=== PATIENT | female | born 1950 | race Caucasian/White ===

== ENCOUNTER → 2016-03-01 | Outpatient (POV) | payer OTHER ==
[2015-10-30 18:36] VITALS: BMI 27.0
== END ==
LOC: OUTPT 00:01
PROVIDERS: ATTEND Otolaryngology
DX: H90.5 Unspecified sensorineural hearing loss (principal)
CPT/HCPCS: 92557; 92567

== ENCOUNTER 2017-03-04 17:43 | Inpatient (IN) ==
[2017-03-04 17:51] VITALS: BMI 25.8
--- NOTE | 2017-03-04 18:07 | ED.PDOC ---
General ED Provider: Dr. ALIS RAYA Chief Complaint: Cough Stated Complaint: two week history of cough that is non productive. Time Seen by Physician: 18:02 Mode of Arrival: Walk-In Information Source: Patient Exam Limitations: No limitations Primary Care Provider: ROSE MARIE BRUSH Nursing and Triage Documentation Reviewed and Agree: Yes Reviewed sepsis parameters & appropriate labs ordered?: Yes System Inflammatory Response Syndrome: Not Applicable Sepsis Protocol: For patient's 13 years and over: Temp is 96.8 and below OR 101 and greater Pulse >90 BPM Resp >20/minute Acutely Altered Mental Status Are patient's symptoms suggestive of a new infection, such as: -Pneumonia -Skin, Soft Tissue -Endocarditis -UTI -Bone, Joint Infection -Implantable Device -Acute Abdominal Infection -Wound Infection -Meningitis -Blood Stream Catheter Infection -Unknown System Inflammatory Response Syndrome: Not Applicable Respiratory Complaint Exam - Respiratory Complaint/Exam Onset/Duration: 2 weeks Symptoms Are: Still present Timing: Constant, Intermittent Initial Severity: Moderate Current Severity: Severe Location: Chest Character: Reports: Dry cough Aggravating: Reports: URI, Weather Associated Signs and Symptoms: Reports: Chest pain (only with coughing on the right chest ). Denies: Rapid breathing, Dyspnea, Fever, Chills, Pleuritic chest pain, Wheezing, Hemoptysis, Dizziness, Calf pain, Calf swelling, Edema, URI, Nasal congestion, Hoarseness, Sinus discomfort, Vomiting, Sore throat, Weight loss, Decreased oral intake, Increased thirst, Increased appetite, Increased urination History of Healthcare-Acquired Pneumonia: No Related Surgical History: Reports: None Pulmonary Embolism Risk Factors: None Cardiac Risk Factors: Reports: Smoking Pseudomonas Risk Factors: Reports: Chronic Lung Disease Tuberculosis Risk Factors: Reports: None Status Asthmaticus Risk Factors: Reports: None Home Oxygen Use: Yes Recent Stress Test: No Recent Echo/LV Function: No Current Antibiotic Use: No Current Asthma Medication Use: No Respiratory Distress: None Inadequate Respiratory Effort: No Dysphagia Present: No Stridor Present: No JVD Present: No Retractions: Not Present Diminished Breath Sounds: Yes Sinus Tenderness: None Grunting Respirations: No Kussmaul Respirations: No Differential Diagnoses: COPD Exacerbation, Pneumonia, Bronchitis, Influenza Non-Traumatic Chest Pain Syncope: EKG Performed Review of Systems - Review Of Systems Constitutional: Reports: No symptoms Eyes: Reports: No symptoms Ears, Nose, Mouth, Throat: Reports: No symptoms Respiratory: Reports: Cough, Short of air Cardiac: Reports: Chest pain GI: Reports: No symptoms : Reports: No symptoms Musculoskeletal: Reports: No symptoms Skin: Reports: No symptoms Neurological: Reports: No symptoms Endocrine: Reports: No symptoms Hematologic/Lymphatic: Reports: No symptoms All Other Systems: Reviewed and Negative Past Medical History - Past Medical History Previously Healthy: No Endocrine: Reports: None Cardiovascular: Reports: Hypertension Respiratory: Reports: None Hematological: Reports: None Gastrointestinal: Reports: None Genitourinary: Reports: None Neuro/Psych: Reports: None Musculoskeletal: Reports: None Cancer: Reports: None Last Menstrual Period: menopause - Surgical History General Surgical History: Reports: None - Family History Family History: Reports: None - Social History Smoking Status: Current every day smoker, Light tobacco smoker Hx Substance Use: No Alcohol Screening: Occasionally Physical Exam - Physical Exam Appearance: Ill-appearing Ill-appearing: Mild Neck: Supple Respiratory: Airway patent, Breath sounds diminished Cardiovascular: RRR, Pulses normal, No rub, No murmur GI/: Soft, Nontender, No masses, Bowel sounds normal, No Organomegaly Musculoskeletal: Normal strength, ROM intact, No edema, No calf tenderness Skin: Warm, Dry, Normal color Neurological: Sensation intact, Motor intact, Reflexes intact, Cranial nerves intact, Alert, Oriented Psychiatric: Anxious Interpretation - EKG Interpretation Time of EKG #1: 18:22 Rate: Normal Rhythm: Sinus Ectopy: None [place]: Right ST Segment: Normal Re-Evaluation - Re-Evaluation Time of Re-Evaluation: 20:04 Status: Improved Vital Signs Stable: Yes Physician Notification - Case Discussed Physician Notified: Dr Brush Time of Notification: 20:04 (Admit to Hosptial. ) Critical Care Note - Critical Care Note Total Time (mins): 0 Course - Course Hematology/Chemistry: 03/04/17 18:23 03/04/17 18:23 Orders, Labs, Meds: Lab Review 03/04/17 03/04/17 03/04/17 18:08 18:14 18:23 WBC 10.49 H RBC 4.84 Hgb 15.0 Hct 44.1 MCV 91.1 MCH 31.0 MCHC 34.0 RDW Coeff of Darin 12.9 Plt Count 219 Immature Gran % (Auto) 0.4 Neut % (Auto) 57.9 Lymph % (Auto) 27.3 [place] % (Auto) 11.0 H Eos % (Auto) 2.6 Baso % (Auto) 0.8 Immature Gran # (Auto) 0.0 Neut # 6.1 Lymph # 2.9 Floyd # 1.2 Eos # 0.3 Baso # 0.1 Puncture Site Rrad O2 Saturation 90.0 L ABG pH 7.389 ABG pCO2 47.7 H ABG pO2 60.0 L ABG HCO3 28.8 H ABG Total CO2 30 H ABG Base Excess 4 H Benjamín Test + FiO2 % 21.0 Sodium Potassium Chloride Carbon Dioxide Anion Gap BUN Creatinine Estimated GFR (MDRD) BUN/Creatinine Ratio Glucose Calcium Total Bilirubin AST ALT Alkaline Phosphatase Total Creatine Kinase Troponin I Total Protein Albumin Globulin Albumin/Globulin Ratio Influenza A (Rapid) Negative by naat Influenza B (Rapid) Negative by naat 03/04/17 18:23 WBC RBC Hgb Hct MCV MCH MCHC RDW Coeff of Darin Plt Count Immature Gran % (Auto) Neut % (Auto) Lymph % (Auto) [place] % (Auto) Eos % (Auto) Baso % (Auto) Immature Gran # (Auto) Neut # Lymph # Floyd # Eos # Baso # Puncture Site O2 Saturation ABG pH ABG pCO2 ABG pO2 ABG HCO3 ABG Total CO2 ABG Base Excess Benjamín Test FiO2 % Sodium 141 Potassium 3.7 Chloride 105 Carbon Dioxide 28 Anion Gap 11.7 BUN 14 Creatinine 0.77 Estimated GFR (MDRD) 75.00 BUN/Creatinine Ratio 18.18 Glucose 90 Calcium 8.9 Total Bilirubin 0.7 AST 13 L ALT 13 Alkaline Phosphatase 77 Total Creatine Kinase 51 Troponin I 0.0560 Total Protein 6.7 Albumin 3.6 Globulin 3.1 Albumin/Globulin Ratio 1.16 Influenza A (Rapid) Influenza B (Rapid) Orders Category Date Time Status ABG DRAW REQUEST Stat CARDIO 03/04/17 18:08 Completed EKG-(ED ONLY) Stat CARDIO 03/04/17 18:08 Completed ABG Stat LAB 03/04/17 18:08 Completed CBC W/ AUTO DIFF Stat LAB 03/04/17 18:23 Completed COMPREHENSIVE METABOLIC PANEL Stat LAB 03/04/17 18:23 Completed CREATINE KINASE Stat LAB 03/04/17 18:23 Completed FLU A/B MOLECULAR Stat LAB 03/04/17 18:14 Completed TROPONIN I Stat LAB 03/04/17 18:23 Completed CHEST, 2 VIEWS PA & LAT Stat RADS 03/04/17 18:02 Completed Medications Generic Name Dose Route Start Last Admin Trade Name Freq PRN Reason Stop Dose Admin Acetaminophen 650 mg 03/04/17 21:43 Tylenol PO Q4H PRN Headache Aspirin 81 mg 03/05/17 08:00 Aspirin Ec PO DAILYWM ALDO Atropine Sulfate 0.5 mg 03/04/17 21:43 Atropine Sulfate Pfs IVP ONCE PRN Symptomatic Bradycardia Hydroxyzine HCl 25 mg 03/04/17 21:43 Vistaril Inj IM Q4H PRN Nausea/Vomiting/Restlessness Morphine Sulfate 4 mg 03/04/17 21:43 Morphine 4 Mg/Ml Vial IVP Q6H PRN Analgesia Nitroglycerin 0.4 mg 03/04/17 21:43 Nitrostat SL Q5MIN X 3 DOSES PRN Chest Pain Sodium Chloride 1 syr 03/05/17 05:00 Saline Flush IVF Q8HR ALDO Vital Signs: Temp Pulse Resp BP Pulse Ox 03/04/17 20:07 161/92 H 03/04/17 19:11 98 03/04/17 17:43 99.2 F 88 20 140/83 90 L Departure - Departure Time of Disposition: 20:04 Disposition: ADMITTED INPATIENT Discharge Problem: Cough, COPD with acute exacerbation Condition: Stable Pt referred to PMD for follow-up: No (admitted) IPMP verified?: No Allergies/Adverse Reactions: Allergies No Known Allergies Allergy (Verified 03/04/17 17:53) Home Medications: Ambulatory Orders Aspirin [[place] Aspirin] 81 mg PO DAILY 12/30/13 Atorvastatin Calcium 20 mg PO DAILY 12/30/13 Carvedilol 3.125 mg PO BID 12/30/13 Amlodipine Besylate 5 mg PO DAILY 03/04/17
--- NOTE | 2017-03-04 19:48 | DI ---
EXAM: Two-view chest HISTORY: Cough COMPARISON: Two-view chest 04/15/2015 FINDINGS: The heart is normal in size. Atherosclerotic changes are seen involving the aortic arch.. Lungs are mildly hyperinflated. IMPRESSION: Mild bilateral hyperinflation without evidence of active pulmonary disease
[2017-03-04] MEDS ORDERED: NITROSTAT SL PRN (21:43)
[2017-03-04] MEDS ORDERED: TYLENOL PO PRN (21:43)
[2017-03-04] MEDS ORDERED: ATROPINE SULFATE PFS IVP PRN (21:43)
[2017-03-04] MEDS ORDERED: MORPHINE 4 MG/ML VIAL IVP PRN (21:43)
[2017-03-04] MEDS ORDERED: VISTARIL INJ IM PRN (21:43)
[2017-03-04] MEDS ORDERED: XOPENEX 1.25 MG NEB STA (21:46)
[2017-03-04] MEDS ORDERED: ROCEPHIN ONE (21:59)
[2017-03-04] MEDS ORDERED: ROCEPHIN 1 GM in SODIUM CHLORIDE 50 ML IV SCH (22:00)
[2017-03-04] MEDS ORDERED: COREG PO SCH (22:00)
[2017-03-04] MEDS: SOLU-CORTEF 250 MG IVP SCH (22:09)
[2017-03-04] MEDS: XOPENEX 1.25 MG NEB SCH (23:37)
[2017-03-05] MEDS ORDERED: XOPENEX 0.63 MG NEB ONE (04:39)
[2017-03-05] MEDS: XOPENEX 1.25 MG NEB SCH ×4 (04:50→23:20)
[2017-03-05] MEDS: SOLU-CORTEF 250 MG IVP SCH ×3 (05:07→20:52)
[2017-03-05] MEDS ORDERED: ASPIRIN EC PO SCH (08:00)
[2017-03-05] MEDS: ASPIRIN CHEWABLE PO SCH (09:00)
[2017-03-05] MEDS: LIPITOR PO SCH (09:00)
[2017-03-05] MEDS: NORVASC PO SCH (09:00)
[2017-03-05] MEDS: COREG PO SCH ×3 (09:01→16:57)
[2017-03-05] MEDS ORDERED: ROCEPHIN 1 GM in SODIUM CHLORIDE 50 ML IV SCH (21:00)
[2017-03-06] MEDS: SOLU-CORTEF 250 MG IVP SCH (04:30)
[2017-03-06] MEDS: XOPENEX 1.25 MG NEB SCH (05:20)
[2017-03-06] MEDS: COREG PO SCH (08:37)
[2017-03-06] MEDS: LIPITOR PO SCH (08:37)
[2017-03-06] MEDS: ASPIRIN CHEWABLE PO SCH (08:37)
[2017-03-06] MEDS: NORVASC PO SCH (08:38)
--- NOTE | 2017-03-06 10:11 | CM.DICTOOL ---
ADMISSION: 03/04/17 20:15 DISCHARGE: 2017 DATE OF SERVICE: 03/06/17 FINAL DIAGNOSIS COPD with acute exacerbation Hypertension Dyslipidemia CAD with stent application [place] Smoker Colonoscopy (Vic) Hernia Repair x 3 Echocardiogram 2015: normal with LVEF 73% PFT, 2015: moderate to severe COPD LAST VITALS Temp Pulse Resp BP Pulse Ox 97.9 F 71 18 124/64 96 03/06/17 05:19 03/06/17 05:19 03/06/17 05:19 03/06/17 05:19 03/06/17 05:19 ACTIVE HOME MEDICATIONS Amlodipine Besylate (Norvasc) 5 mg PO DAILY [facility] Last Admin: 03/06/17 08:38 Dose: 5 mg Aspirin (Aspirin Chewable) 81 mg PO DAILYWM [facility] Last Admin: 03/06/17 08:37 Dose: 81 mg Atorvastatin Calcium (Lipitor) 20 mg PO DAILY [facility] Last Admin: 03/06/17 08:37 Dose: 20 mg Carvedilol (Coreg) 3.125 mg PO BIDWM [facility] Last Admin: 03/06/17 08:37 Dose: 3.125 mg ALLERGIES No Known Allergies Allergy (Verified 03/04/17 17:53) NEW PRESCRIPTIONS: Keflex 500 mg TID for 7 days Prednisone 20 mg BID for 2 days, then 10 mg BID for 5 days SMOKING: Advised to stop smoking DISEASE SPECIFIC EDUCATION: Smoking COPD Medications, including short term use of oral steroids Risk of GI irritation, bone demineralization with steroid use LAB REVIEW: 03/06/17 05:10 03/06/17 05:10 03/06/17 05:10: Sodium 143, Potassium 3.7, Chloride 108 H, Carbon Dioxide 28, Anion Gap 10.7, BUN 15, Creatinine 0.66, Estimated GFR (MDRD) 89.00, BUN/ Creatinine Ratio 22.72, Glucose 133 H, Calcium 8.8, Total Bilirubin 0.4, AST 9 L , ALT 11 L, Alkaline Phosphatase 62, Total Protein 5.8, Albumin 3.2 L, Globulin 2.6, Albumin/Globulin Ratio 1.23 03/06/17 05:10: WBC 12.90 H D, RBC 4.18 L, Hgb 12.8, Hct 37.7, MCV 90.2, MCH 30.6, MCHC 34.0, RDW Coeff of Darin 13.0, Plt Count 186, Immature Gran % (Auto) 0.5, Neut % (Auto) 81.5, Lymph % (Auto) 10.9, [place] % (Auto) 6.9, Eos % (Auto) 0.0, Baso % (Auto) 0.2, Immature Gran # (Auto) 0.1, Neut # 10.5 H, Lymph # 1.4, [place] # 0.9, Eos # 0.0, Baso # 0.0 PLAN: Discharge home Diet: As tolerated, heart healthy Activity: Gradually resume as tolerated Continue medications as listed on nursing discharge information sheet An appointment is scheduled with Dr. Nguyen/Lachelle Schulte APRN on at 9 am Mrs. Kirby is alert and oriented x 3. She offers no complaints and reports she feels 100% better today. She is ambulatory in the hallway without assistive devices or use of oxygen. Oxygen saturation on room air is 93% and with exertion the saturation is 90%. She is independent with Activities of Daily Living. No abdominal pain or nausea reported. Meal intakes of 50-100%. Skin is intact and free of decubitus ulcers, rashes or irritation. Derek Nguyen MD Lachelle Schulte APRN
[2017-03-06 10:45] VITALS: BP 121/64; TEMP 97.3
--- NOTE | 2017-03-06 10:54 | PCM.PROG ---
Attending Provider: ATTENDING PROVIDER: Dr. ROSE MARIE BRUSH This patient is seen with Lachelle Schulte, Nurse Practitioner. DATE OF SERVICE: 03/06/17 SUBJECTIVE: This 66 year old WHITE/ F was hospitalized 03/04/17. The patient is lying in bed, alert. The patient has been up and about walking around. Shortness of breath and cough improved. The patient is wanting to go home today. REVIEW OF SYSTEMS: CONSTITUTIONAL: No night sweats. No fatigue, malaise, lethargy. No fever or chills. HEENT: Eyes: No visual changes. No eye pain. No eye discharge. ENT: No runny nose. No epistaxis. No sinus pain. No odynophagia. No congestion. RESPIRATORY: Less cough, no congestion. No hemoptysis. Less shortness of breath. CARDIOVASCULAR: No angina symptoms. No CHF symptoms. No atypical chest pain for CAD. No palpitations. No orthopnea.. GASTROINTESTINAL: No abdominal pain. No nausea or vomiting. No diarrhea or constipation. No hematemesis. No hematochezia. GENITOURINARY: No urgency. No frequency. No dysuria. No hematuria. No obstructive symptoms. No discharge. No pain. No significant abnormal bleeding. MUSCULOSKELETAL: No musculoskeletal pain; no joint swelling. NEUROLOGICAL: Awake, alert, oriented to time, place and person. No headache. No neck pain. No syncope. No seizures. No dizziness. PSYCHIATRIC: Not anxious. No depression. No suicidal thoughts. No homicidal thoughts. SKIN: No rash. No lesions. No wounds. ENDOCRINE: No unexplained weight loss. No weight gain. HEMATOLOGIC/LYMPHATIC: No anemia. No purpura. No petechiae. No prolonged or excessive bleeding. No palpable lymph nodes. PHYSICAL EXAMINATION: GENERAL: The patient is awake, alert and oriented, lying in bed in no distress. VITAL SIGNS: Temperature 97.9 F, Pulse 71, Respiratory Rate 18, BP 124/64, Pulse Ox 96% HEENT: Head normocephalic, atraumatic. Eyes: Extraocular muscles are intact. Pupils are equal, round and reactive to light and accommodation. Ears: No lesions. Nose appeared normal. Throat: No exudate or erythema. NECK: Supple. No JVD, no carotid bruit. No lymphadenopathy or thyromegaly. LUNGS: Diminished breath sounds bilaterally. Clear to auscultation. Percussion note normal. Chest symmetrical. HEART: S1, S2, no S3. No murmurs. No cyanosis or clubbing. No ascites. Pulses: Dorsalis pedis and posterior tibial pulses +1 to +2 both sides. ABDOMEN: Soft. Non-tender. Bowel sounds active. No CVA tenderness. No mass felt. EXTREMITIES: No edema. Full range of motion of all extremities, equal. NEUROLOGIC: No focal deficit. Cranial nerves II through XII are grossly intact. No headache, no double vision or headache. SKIN: Not dry. Intact. Turgor-normal. LYMPHATIC: No palpable lymph nodes/no lymphedema. MUSCULOSKELETAL: Normal joints with no swelling. Muscle tone is normal. LAB REVIEW: 03/06/17 05:10 03/06/17 05:10 03/06/17 05:10: Sodium 143, Potassium 3.7, Chloride 108 H, Carbon Dioxide 28, Anion Gap 10.7, BUN 15, Creatinine 0.66, Estimated GFR (MDRD) 89.00, BUN/ Creatinine Ratio 22.72, Glucose 133 H, Calcium 8.8, Total Bilirubin 0.4, AST 9 L , ALT 11 L, Alkaline Phosphatase 62, Total Protein 5.8, Albumin 3.2 L, Globulin 2.6, Albumin/Globulin Ratio 1.23 03/06/17 05:10: WBC 12.90 H D, RBC 4.18 L, Hgb 12.8, Hct 37.7, MCV 90.2, MCH 30.6, MCHC 34.0, RDW Coeff of Darin 13.0, Plt Count 186, Immature Gran % (Auto) 0.5, Neut % (Auto) 81.5, Lymph % (Auto) 10.9, [place] % (Auto) 6.9, Eos % (Auto) 0.0, Baso % (Auto) 0.2, Immature Gran # (Auto) 0.1, Neut # 10.5 H, Lymph # 1.4, [place] # 0.9, Eos # 0.0, Baso # 0.0 ASSESSMENT: 1. ACUTE COPD EXACERBATION 2. SHORTNESS OF BREATH RESOLVED PLAN: 1. Discharge home. 2. Keflex 500 mg t.i.d. times one week. 3. Prednisone 20 mg b.i.d. times 2 days then 10 mg b.i.d. times five. 4. Three-step oxygen test. Plan and coordination of the patient's care discussed in the presence of Uniforms Sales Representative and nurse. CONDITION: STABLE SCRIBED BY: Berta SCHUSTERist scribed while in presence of service performed by Dr. Brush/Lachelle Schulte APRN on 03/06/17 ([id number])
--- NOTE | 2017-03-07 14:54 | HP ---
DATE OF SERVICE: 03/05/17 HISTORY OF PRESENT ILLNESS: This 66-year-old white female who presented to the emergency room; she walked in. She had been complaining of cough for the past two weeks, is nonproductive. She had a low grade fever. She was mildly short of breath, has a history of COPD. PAST MEDICAL HISTORY: COPD DYSLIPIDEMIA HYPERTENSION OSTEOARTHRITIS PAST SURGICAL HISTORY: No reportable surgical history. REVIEW OF SYSTEMS: CONSTITUTIONAL: No night sweats. No fatigue, malaise, lethargy. No fever or chills. HEENT: Eyes: No visual changes. No eye pain. No eye discharge. ENT: No runny nose. No epistaxis. No sinus pain. No sore throat. No odynophagia. No ear pain. No congestion. RESPIRATORY: Cough. No congestion. No hemoptysis. Shortness of breath, mild distress. CARDIOVASCULAR: No angina symptoms. No CHF symptoms. No atypical chest pain for CAD. No palpitations. No orthopnea. GASTROINTESTINAL: No abdominal pain. No nausea or vomiting. No diarrhea or constipation. No hematemesis. No hematochezia. GENITOURINARY: No urgency. No frequency. No dysuria. No hematuria. No obstructive symptoms. No discharge. No pain. No significant abnormal bleeding. MUSCULOSKELETAL: No musculoskeletal pain. No joint swelling. No arthritis. NEUROLOGICAL: No headache. No neck pain. No syncope. No seizures. No dizziness. PSYCHIATRIC: Not anxious. No depression. No suicidal thoughts. No homicidal thoughts. SKIN: No rash. No lesions. No wounds. ENDOCRINE: No unexplained weight loss. No weight gain. HEMATOLOGIC/LYMPHATIC: No anemia. No purpura. No petechiae. No prolonged or excessive bleeding. No palpable lymph nodes. PERSONAL/FAMILY/SOCIAL HISTORY: She is a current heavy every day smoker. Only occasional alcohol use. She currently resides at home with her . MEDICATIONS: (HOME) Lipitor 20 mg daily Coreg 3.125 mg b.i.d. Norvasc 5 mg p.o. daily ALLERGIES: NKDA PHYSICAL EXAMINATION: GENERAL: The patient is alert and oriented times three in no apparent distress. HEENT: Head normocephalic, atraumatic. Eyes: Extraocular muscles are intact. Pupils are equal, round and reactive to light and accommodation. Ears: No lesions. Nose appeared normal. Throat: No exudate or erythema. NECK: Supple. No JVD, no carotid bruit. No lymphadenopathy or thyromegaly. LUNGS: Diminished breath sounds bilaterally with mild expiratory wheezing. Percussion note normal. Chest symmetrical. HEART: S1, S2, no S3. No murmurs. No cyanosis or clubbing. No ascites. Pulses: Dorsalis pedis and posterior tibial pulses +1 to +2 both sides. ABDOMEN: Soft. Nontender. Bowel sounds active. No CVA tenderness. No mass felt. EXTREMITIES: No edema. Full range of motion of all extremities, equal. NEUROLOGIC: No focal deficit. Cranial nerves II through XII are grossly intact. No headache, no double vision or headache. SKIN: Not dry. Intact. Turgor - normal. LYMPHATIC: No palpable lymph nodes/no lymphedema. MUSCULOSKELETAL: Normal joints with no swelling. Muscle tone is normal. LABS: White count 10.49, hemoglobin 15, hematocrit 44.1, platelets 219. ABGs 02 sat 90 on room air. pH 7.389, pc02 47.7, p02 65, bicarb 28.8. Total c02 30. Base excess of 4. Sodium 141, potassium 3.7, BUN 14, creatinine 0.77. AST 13, ALT 13 , Akaline phosphatase 77. Influenza A and B are both negative. Chest x-ray shows changes associated with COPD, no acute pneumonia. ASSESSMENT: 1. ACUTE COPD EXACERBATION/SHORTNESS OF BREATH 2. HEAVY SMOKER PLAN: 1. We will admit to the floor 2. Routine telemetry orders 3. Daily CBC and CMP 4. Rocephin 1 gm IV daily 5. Solu-Cortef 125 mg IV q.8hr 6. Xopenex neb treatments q.6hr 7. IV fluids 8. D5 1/2 NS at 75 cc/hr 9. Regular diet 10. 02 as needed 11. Will follow closely TIME SPENT: More than 70 minutes. MTDD
--- NOTE | 2017-03-08 13:17 | DS ---
DATE OF SERVICE: 03/06/17 FINAL DIAGNOSIS: 1. COPD with acute exacerbation 2. Hypertension 3. Dyslipidemia 4. CAD with stent application 5. [place] 6. Smoker 7. Colonoscopy ([facility]ic) 8. Hernia Repair 9. x 3 10. Echocardiogram 2015: normal with LVEF 73% PFT, 2015: moderate to severe COPD LAST VITALS: Temp Pulse Resp BP Pulse Ox 97.9 F 71 18 124/64 96 DISCHARGE INSTRUCTIONS: Discharge home. Continue medication as listed on nursing discharge information sheet. An appointment is scheduled with Dr. Nguyen/Lachelle Schulte on March 10 at 9am. MEDICATIONS AT DISCHARGE: Amlodipine Besylate (Norvasc) 5 mg PO DAILY [facility] Last Admin: 03/06/17 08:38 Dose: 5 mg Aspirin (Aspirin Chewable) 81 mg PO DAILYWM [facility] Last Admin: 03/06/17 08:37 Dose: 81 mg Atorvastatin Calcium (Lipitor) 20 mg PO DAILY [facility] Last Admin: 03/06/17 08:37 Dose: 20 mg Carvedilol (Coreg) 3.125 mg PO BIDWM [facility] Last Admin: 03/06/17 08:37 Dose: 3.125 mg ALLERGIES: No known allergies NEW PRESCRIPTIONS: Keflex 500 mg TID for 7 days Prednisone 20 mg BID for 2 days, then 10 mg BID for 5 days DIET INSTRUCTIONS: As tolerated, heart healthy ACTIVITY: Gradually resume as tolerated SMOKING: Advised to stop smoking DISEASE SPECIFIC EDUCATION: Smoking COPD Medications, including short term use of oral steroids Risk of GI irritation, bone demineralization with steroid use HOSPITAL COURSE: This is a 66 year old female who presented to the emergency room complaining of a two week cough and mildly short of breath. She has a history of COPD and is a smoker. Chest x-ray revealed changes associated with COPD exacerbation. ABG were slightly abnormal with O2 sat of 90, pO2 60, pCO2 47 and base excess of 4. She was in no distress. She was admitted for shortness of breath and placed on IV fluids D5 half normal saline at 75cc an hour. She was started on Rocephin 1 gram IV daily along with Xopenex NEB treatments every 6 hours. Given Solu- Cortef 125mg IV Q 8 hours. The day following admission she stated that she felt much better and her short of breath had improved. She still had some cough. She has been sating low with oxygen 96%. Today on day of discharge with o2 at 2 liters. Again chest x-ray revealed no pneumonia and her labs have been stable. She has been responding well to the Xopenex and the IV steroids. This morning she states that she has been up walking around and she has been to the cafeteria approximately four time on her own to get coffee and get up and walking around. She isn't experiencing any shortness of breath and this is without oxygen. She does not wear oxygen at home. She states that she feels well. She has been eating 75-100% of her meals and she is ready to go home. Labs are stable; WBC 12.9, hgb 12.8, hct 37.7, plt count 106, sodium 143, potassium 3.7, BUN 15, creatinine 0.66. A three step oxygen test which showed O2 sat 94% at rest and 90 with exertion so she does not need oxygen at home. She has significantly improved and has tolerated no oxygen well. Information has been provided regarding smoking cessation. Due to her sudden response to steroids and antibiotics we will continue her on Keflex 500mg three times a day for the next 7 days along with Prednisone 20mg twice a day times two days and 10mg twice a day times five days. Her vital signs are stable; temperature 97.9, heart rate 71, respirations 18, blood pressure 124/64 and pulse ox 94% on room air. Again she has been up and about walking around and states that she feels well and would like to return home. TIME SPENT: More than 60 minutes. SHANNAN
== END 2017-03-06 10:40 | disposition home or self-care (01) | DRG 192 ==
LOC: ED 17:43 → MEDSURG A 20:15
PROVIDERS: ADMIT Internal Medicine; ATTEND Internal Medicine
DX: J44.1 Chronic obstructive pulmonary disease with (acute) exacerbation (principal); R05 Cough; R07.89 Other chest pain; R06.02 Shortness of breath; I10 Essential (primary) hypertension; E78.5 Hyperlipidemia, unspecified; I25.10 Atherosclerotic heart disease of native coronary artery without angina pectoris; I25.2 Old myocardial infarction; F17.210 Nicotine dependence, cigarettes, uncomplicated; Z79.82 Long term (current) use of aspirin; Z79.899 Other long term (current) drug therapy; Z98.890 Other specified postprocedural states; Z95.5 Presence of coronary angioplasty implant and graft
CPT/HCPCS: 36415; 80053; 81001; 82550; 82803; 84436; 84443; 84484; 85025; 87502; 93005; 93010; 94640; 94761; 99284

== ENCOUNTER 2017-12-31 07:48 | Emergency (ER) | payer OTHER ==
[2017-12-31 07:59] VITALS: BP 127/79; TEMP 98.1; BMI 25.7
[2017-12-31] MEDS ORDERED: ZANTAC IM STA (08:06)
[2017-12-31] MEDS ORDERED: DECADRON 4 MG/ML SDV IM STA (08:06)
[2017-12-31] MEDS ORDERED: BENADRYL IM STA (08:06)
--- NOTE | 2017-12-31 08:10 | ED.PDOC ---
General ED Provider: Dr. CHERYL VARELA-ER Chief Complaint: Rash Stated Complaint: im itching everywhere Time Seen by Physician: 08:08 Mode of Arrival: Walk-In Information Source: Patient Exam Limitations: No limitations Primary Care Provider: ROSE MARIE CASTREJON Nursing and Triage Documentation Reviewed and Agree: Yes Does patient meet sepsis criteria?: No System Inflammatory Response Syndrome: Not Applicable Sepsis Protocol: For patient's 13 years and over: Temp is 96.8 and below OR 101 and greater Pulse >90 BPM Resp >20/minute Acutely Altered Mental Status Are patient's symptoms suggestive of a new infection, such as: -Pneumonia -Skin, Soft Tissue -Endocarditis -UTI -Bone, Joint Infection -Implantable Device -Acute Abdominal Infection -Wound Infection -Meningitis -Blood Stream Catheter Infection -Unknown Skin Complaint Exam - Skin Rash/Itching Complaint/Exam Onset/Duration: 24 hrfs Symptoms Are: Still present Initial Severity: Mild Current Severity: Moderate Location: face, arms Potential Exposures: Reports: Unknown Aggravating: Reports: None Alleviating: Reports: None Associated Signs and Symptoms: Denies: Difficulty breathing, Fever, Chills Skin Findings: Present: Urticaria Differential Diagnoses: Allergic Reaction Review of Systems - Review Of Systems Constitutional: Reports: No symptoms Eyes: Reports: No symptoms Ears, Nose, Mouth, Throat: Reports: No symptoms Respiratory: Reports: No symptoms Cardiac: Reports: No symptoms GI: Reports: No symptoms : Reports: No symptoms Musculoskeletal: Reports: No symptoms Skin: Reports: Rash Neurological: Reports: No symptoms Endocrine: Reports: No symptoms Hematologic/Lymphatic: Reports: No symptoms All Other Systems: Reviewed and Negative Past Medical History - Past Medical History Previously Healthy: No Endocrine: Reports: None Cardiovascular: Reports: Hypertension Respiratory: Reports: None Hematological: Reports: None Gastrointestinal: Reports: None Genitourinary: Reports: None Neuro/Psych: Reports: None Musculoskeletal: Reports: None Cancer: Reports: None Last Menstrual Period: unknown - Surgical History General Surgical History: Reports: None - Family History Family History: Reports: None - Social History Smoking Status: Current every day smoker, Heavy tobacco smoker Hx Substance Use: No Alcohol Screening: None Physical Exam - Physical Exam Appearance: Well-appearing, No pain distress, Well-nourished Eyes: MAXINE, EOMI, Conjunctiva clear ENT: Ears normal, Nose normal, Oropharynx normal Neck: Supple Respiratory: Airway patent, Breath sounds clear, Breath sounds equal, Respirations nonlabored Cardiovascular: RRR GI/: Soft, Nontender, No masses, Bowel sounds normal, No Organomegaly Musculoskeletal: Normal strength Skin: Warm, Dry, Normal color Neurological: Sensation intact, Motor intact, Reflexes intact, Cranial nerves intact, Alert, Oriented Psychiatric: Affect appropriate, Mood appropriate Critical Care Note - Critical Care Note Total Time (mins): 0 Course - Course Orders, Labs, Meds: Orders Category Date Time Status Dexamethasone 4 mg/ml Inj [Decadron 4 mg/ml Sdv] MEDS 12/31/17 08:06 Stat 8 mg IM ONCE STA Diphenhydramine Inj [Benadryl] MEDS 12/31/17 08:06 Stat 50 mg IM ONCE STA Ranitidine Inj [Zantac] MEDS 12/31/17 08:06 Stat 50 mg IM ONCE STA Medications Generic Name Dose Route Start Last Admin Trade Name Freq PRN Reason Stop Dose Admin Dexamethasone Sodium Phosphate 8 mg 12/31/17 08:06 Decadron 4 Mg/Ml Sdv IM 12/31/17 08:07 ONCE STA Diphenhydramine HCl 50 mg 12/31/17 08:06 Benadryl IM 12/31/17 08:07 ONCE STA Ranitidine HCl 50 mg 12/31/17 08:06 Zantac IM 12/31/17 08:07 ONCE STA Vital Signs: Temp Pulse Resp BP Pulse Ox 12/31/17 07:48 98.1 F 86 20 127/79 95 Departure - Departure Time of Disposition: 08:09 Disposition: HOME SELF-CARE Discharge Problem: Pruritic rash Instructions: Acute Rash (ED), Urticaria (ED) Condition: Good Pt referred to PMD for follow-up: No IPMP verified?: No Additional Instructions: steroid taper, zyretc 10mg #30--zantac 150mg bid---can use oral benadryl q 4hrs prn itching--f/u wt dr castrejon Allergies/Adverse Reactions: Allergies No Known Allergies Allergy (Verified 12/31/17 07:59) Home Medications: Ambulatory Orders Aspirin [[place] Aspirin] 81 mg PO DAILY 12/30/13 Atorvastatin Calcium 20 mg PO DAILY 12/30/13 Carvedilol 3.125 mg PO BID 12/30/13 Amlodipine Besylate 5 mg PO DAILY 03/04/17 Disposition Discussed With: Patient, Family
[2017-12-31] MEDS ORDERED: ZANTAC PO STA (08:30)
[2017-12-31] MEDS ORDERED: ZANTAC ONE (08:32)
== END 2017-12-31 08:51 | disposition home or self-care (01) ==
LOC: ED 07:48
DX: L50.9 Urticaria, unspecified (principal)
CPT/HCPCS: 96372; 99282

== ENCOUNTER 2018-02-28 12:27 | Outpatient (CLI) | payer OTHER ==
[2018-01-11 17:00] VITALS: BMI 26.0
--- NOTE | 2018-02-28 13:02 | DI ---
EXAM: Two views of the chest. History: Chest pain, smoker. Comparison: Chest radiograph 01/11/2018 Findings: Heart size is normal. No focal consolidation. No appreciable pleural fluid and no pneumo thorax. Atherosclerotic vascular calcifications. Hyperinflation with increase in retrosternal clear space. Impression: No acute cardiopulmonary process. Chronic obstructive pulmonary disease.
--- NOTE | 2018-02-28 13:18 | CT ---
EXAM: CT of the cervical spine without contrast History: Neck pain. Technique: Multiplanar CT images through the cervical spine were obtained without the administration of IV contrast Findings: Emphysema seen within the upper lungs. There is enlargement of the right lobe of the thyr oid with nodules. Reversal of the normal cervical lordosis. No acute fracture or subluxation of the cervical spine. N o prevertebral soft tissue swelling. Predental space is not widened. Moderate to severe disc space narrowing at C4-5, C5-6 and C6-7 with endplate sclerosis and osteophyte formation. C2-3: No significant bony central canal stenosis. Moderate right and mild left bony neural foramina l narrowing secondary to uncovertebral and facet hypertrophy. C3-4: No significant bony central canal stenosis. Severe right and moderate left bony neural forami nal narrowing secondary to uncovertebral and facet hypertrophy. C4-5: Mild bony central canal stenosis secondary to posterior disc osteophyte complex. Moderate to severe bilateral bony neural foraminal narrowing secondary to uncovertebral and facet hypertrophy. C5-6: Mild to moderate bony central canal stenosis secondary to posterior disc osteophyte complex. Severe left and moderate to severe right bony neural foraminal narrowing secondary to uncovertebral a nd facet hypertrophy. C6-7: Mild bony central canal stenosis secondary to posterior disc osteophyte complex. Severe right and moderate to severe left bony neural foraminal narrowing secondary to uncovertebral and facet hyp ertrophy. C7-T1: No significant bony central canal stenosis. Mild to moderate bilateral bony neural foraminal narrowing secondary to uncovertebral and facet hypertrophy. Impression: 1. No acute osseous abnormality of the cervical spine. 2. Degenerative disc disease. 3. Level by level analysis as detailed above. 4. Emphysema within the upper lungs. 5. Enlarged nodular right thyroid lobe. Recommend further evaluation with thyroid ultrasound.
== END 2018-02-28 12:28 | disposition home or self-care (01) ==
LOC: RAD 12:27
PROVIDERS: ATTEND Internal Medicine
DX: M54.2 Cervicalgia (principal); J44.9 Chronic obstructive pulmonary disease, unspecified; Z72.0 Tobacco use

== ENCOUNTER 2018-03-02 13:15 | Outpatient (CLI) ==
[2018-01-11 17:00] VITALS: BMI 26.0
--- NOTE | 2018-03-02 14:40 | US ---
EXAM: THYROID ULTRASOUND HISTORY: Thyroid nodules seen on CT FINDINGS: Ultrasound thyroid. Real time badillo-scale ultrasound and color Doppler imaging. COMPARISON: No comparison ultrasound The right thyroid lobe measures 6.5 x 3.0 x 3.8 cm. The isthmus measures 0.85 cm. The left thyroid lobe measures 5.4 x 2.4 x 1.7 cm. Within the right lobe there are least three nodules. The dominant nodule is located inferiorly measu ring 3.4 x 2.3 x 2.6 cm.. This particular nodule is solid with isoechoic echogenicity and relatively rounded shape and has smooth margins. Suggestion of punctate internal echogenicities within the nod ule. This nodule has an ACR TI-RADS level of TR4. ACR recommends fine needle aspiration for TR4 nod ules which are greater than or equal to 1.5 cm in size. The smaller nodules within the right lobe ar e similar in appearance and measure up to 1.7 cm and up to 2.3 cm. The smaller nodules within the le ft lobe has similar appearance and measure up to 1.8 cm and up to 1 cm. The gland is diffusely heter ogeneous and mildly hyperemic. IMPRESSION: 1. Multiple bilateral nodules with a dominant nodule described above having ACR TI-RADS level of TR4 (moderately suspicious). Fine needle aspiration is recommended for at least this dominant inferior right lobe nodule if not also the other larger nodules of the gland.
== END 2018-03-02 13:16 | disposition home or self-care (01) ==
LOC: RAD 13:15
PROVIDERS: ATTEND Internal Medicine
DX: E04.1 Nontoxic single thyroid nodule (principal)

== ENCOUNTER 2018-04-12 10:00 | Outpatient (RCR) ==
[2018-01-11 17:00] VITALS: BMI 26.0
--- NOTE | 2018-04-09 15:30 | RS.OPPTEV2 ---
Date of Note: 04/09/18 Visit #: 1 Number of visits approved by Insurance: n/a Date of Evaluation: 04/09/18 Payer Source: MEDICARE Surgery Performed?: No Treatment Diagnosis: neck pain, pain in L shld History of Condition/Mechanism of Injury:: pt states neck pain began around Daniel time. No definite injury noted. Prior Level of Function.....Patient was independent with: ADL's Functional Limitations: Sleep, Reaching, Pulling, Lifting, Carrying Current Subjective/complaints:: pt states that pain has been waking her up at night and is having sharp radiating pain into L shld. Treatment Side (optional): Left *Precautions: n/a Medical History Medical History: Hypertension Smoking Status: Current some day smoker Hx Home Medications: ventolin, amlodipine, atorvastatin, prednisone, ranitidine , tramadol Patient's Goals: decrease neck pain Pain Assessment - Pain Description Pain Location: cervical pain radiating into L shld. Pain Description: Radiating, Sharp Current Pain Intensity: 5 Worst Pain Intensity: 10 Functional Outcome Measure Neck Disability Index: 8 - G Codes & Severity Modifier G Codes & Modifier: n/a Source of G Code score: n/a Observation - Observation Posture: Forward Head, Rounded Shoulders, Increased Thoracic Kyphosis, Decreased Cervical Lordosis Handedness: Right Gait - Gait Pattern General Gait Pattern Observation: No Deviations/Normal - ROM Cervical Spine Range of Motion Limitations: Soft Tissue Tightness, Muscle Weakness, Pain Comments: cervical ext limited with pain, cervical flex wFL's, rotation WFL's, pain with R lat side bending. - Strength Cervical Extension: 3- Fair- Cervical Flexion: 4- Good- Cervical Lateral Flexion: 4- Good- Cervical Rotation: 4- Good- - Special Tests Foraminal Distraction: Negative Foraminal Compression: Negative Left, Negative Right Palpation Palpation Findings: Tenderness Comments:: L cervical paraspinals tenderness noted to palpation as well as muscle guarding in L upper trap. Sensation - Sensation Right Upper Extremity: Intact/Normal Left Upper Extremity: Intact/Normal Right Lower Extremity: Intact/Normal Left Lower Extremity: Intact/Normal Balance - Sitting Balance Static Sitting Balance: Normal Dynamic Sitting Balance: Normal - Standing Balance Static Standing Balance: Normal Dynamic Standing Balance: Normal - Treatment Modality: Ultrasound Parameters/Method Applied: 1.5w/cm2 x 8 mins Treatment Area: L cervical and upper trap Patient Position: Sitting Interventions - Exercise/Activities/Manual Therapy Exercises/Activities: pt performed cervical retraction, L upper trap stretch, scapular retraction Manual Therapy: myofascial release at area of occiput, and cervical paraspinals. HOME EXERCISE PROGRAM: pt given written HEP including cervical retraction, upper trap stretch, scapular retraction - Charges Timed Code Treatment Minutes: 51 Total Treatment Time: 55 Procedures billed for this date of service:: eval med, ultrasound EVALUATION COMPLEXITY LEVEL EVALUATION COMPLEXITY LEVEL: HISTORY: Medium (htn, pain, age), EXAM OF BODY SYSTEMS: Medium (pain, ROM, muscle tightness, radicular symptoms), CLINICAL PRESENTATION: Medium, CLINICAL DECISION MAKING: Medium Assessment Assessment: pt presents with decreased cervical ROM as well as radicular symptoms. pt also presents with muscle guarding as well as muscle tightness L cervical area and upper trap Patient Education: Home Exercise Program, Education of Plan of Care Rehab Potential: Good Short Term Goals Goal #1: pt independent with initial HEP Goal to be met by: 04/30/18 Goal #2: Improve cervical ROM WFL's Goal to be met by: 04/30/18 Goal #3: Decrease muscle tightness/guarding in cervical paraspinal and upper trap Goal to be met by: 04/30/18 Long-Term Goals Goal #1: Decrease pain to < 3/10 Goal to be met by: 05/14/18 Goal #2: No reports of radicular pain into L shld Goal to be met by: 05/14/18 Goal #3: pt report increased ability to perform normal activities w less pain Goal to be met by: 05/14/18 Plan - Treatment to be Provided Procedures: Therapeutic Exercises, Therapeutic Activity, Manual Therapy, Massage , Patient Education Modalities: Electrical Stimulation, Ultrasound/Phonophoresis, Cryotherapy, Hot Packs, Mechanical Traction - Treatment Plan Frequency: 2-3x a week Duration: 6 weeks Dates of Rice Drier Operator Goals: 05/14/18 Expiration date of current Insurance Approval:: n/a - Treatment Code (1) Cervical pain Code(s): M54.2 - CERVICALGIA (2) Radicular pain in left arm Code(s): M79.2 - NEURALGIA AND NEURITIS, UNSPECIFIED (3) Muscle tightness Code(s): M62.89 - OTHER SPECIFIED DISORDERS OF MUSCLE
--- NOTE | 2018-04-12 16:28 | RS.OPPTDN ---
Subjective Date of Note: 04/12/18 Visit #: 2 Number of visits approved by Insurance: Reassess at 10th Date of Evaluation: 04/09/18 Payer Source: MEDICARE Treatment Diagnosis: neck pain, pain in L shld Current Subjective/complaints:: Patient says she could not tell any relief from first session, but says it felt good during treatment. She says she has no limitation with mobility to her L shoulder and cannot come up with any task that is difficult for her to complete because of this pain. She says pain is only at the L side of her neck and upper L arm. *Precautions: n/a - Treatment Modality: Ultrasound Parameters/Method Applied: continuous @ 1.5 w/cm2 x 12 to the L UT and shoulder Patient Position: Sitting - Heat/Cryotherapy Treatment: Hot Pack (15 mins across the L UT and L shoulder in sitting) Interventions - Exercise/Activities/Manual Therapy Exercises/Activities: pt receives passive stretching for the cspine SB and rotation bilaterally, concentrating for the L side. She receives Passive L shoulder flexion/abd/IR/ER. Manual isometrics all dir for the L shoulder x 5. Shoulder shrugs and scap adduction x 8. Began patient education of diagnosis, anatomy, and HEP. Total minutes of Exercise: 14 Manual Therapy: myofascial release at area of occiput, and cervical paraspinals. HOME EXERCISE PROGRAM: pt given written HEP including cervical retraction, upper trap stretch, scapular retraction - Charges Timed Code Treatment Minutes: 24 Total Treatment Time: 39 Procedures billed for this date of service:: hp,u/s, ex Assessment: Patient appears to baylee all treatment well today. No tenderness noted with pressure during u/s throughout the L UT or shoulder. She completes ROM WNL and provides good resistance with isometrics manually. No radiating symptoms of tingling/numbness or CEE. She should benefit from modalities to ease muscle soreness and improve postural strengthening. Patient Education: Education of diagnosis, Home Exercise Program, Education of Plan of Care Patient demonstrates compliance with HEP?: Yes Short Term Goals Goal #1: pt independent with initial HEP Goal to be met by: 04/30/18 Progress towards Goal:: Progressing Goal #2: Improve cervical ROM WFL's Goal to be met by: 04/30/18 Goal #3: Decrease muscle tightness/guarding in cervical paraspinal and upper trap Goal to be met by: 04/30/18 Director Biostatistics Goals Goal #1: Decrease pain to < 3/10 Goal to be met by: 05/14/18 Goal #2: No reports of radicular pain into L shld Goal to be met by: 05/14/18 Goal #3: pt report increased ability to perform normal activities w less pain Goal to be met by: 05/14/18 Plan Dates of Skilled Nursing Goals: 05/14/18 Expiration date of current Insurance Approval:: 05/14/18 PLAN: Patient to continue treatment for neck and L shoulder pain 2-3x per week
== END 2018-04-12 23:59 ==
PROVIDERS: ATTEND Neurological Surgery
DX: M54.2 Cervicalgia (principal); M25.512 Pain in left shoulder; M50.30 Other cervical disc degeneration, unspecified cervical region

== ENCOUNTER 2018-04-24 10:00 | Outpatient (RCR) ==
[2018-01-11 17:00] VITALS: BMI 26.0
--- NOTE | 2018-04-17 15:59 | RS.OPPTDN ---
Subjective Date of Note: 04/17/18 Visit #: 3 Number of visits approved by Insurance: Reassess at 10 Date of Evaluation: 04/09/18 Payer Source: MEDICARE Treatment Diagnosis: neck pain, pain in L shld Current Subjective/complaints:: Patient says she is unsure if treatment is helping. Reports pain was extreme yesterday. States pain is now mostly at the L side of her neck and not so much into the shoulder. She does admit that pain is no longer constant. *Precautions: n/a - Treatment Modality: Ultrasound Parameters/Method Applied: continuous @ 1.5 w/cm2 x 12 mins to the L UT and L shoulder Patient Position: Sitting - Heat/Cryotherapy Treatment: Hot Pack (20 mins to the cervical area and L shoulder in sitting ) Interventions - Exercise/Activities/Manual Therapy Exercises/Activities: pt receives passive stretching for the cspine SB and rotation bilaterally, concentrating for the L side. She performs active shoulder shrugs, scap adduction, red tband scap retraction, 2# wand for bilateral shoulder flexion. Patient received education of postural techniques/ mechanics and HEP review. Instruction of todays added exercises and benefits. Total minutes of Exercise: 10 Manual Therapy: myofascial release at area of occiput, and cervical paraspinals. HOME EXERCISE PROGRAM: pt given written HEP including cervical retraction, upper trap stretch, scapular retraction - Charges Timed Code Treatment Minutes: 20 Total Treatment Time: 40 Procedures billed for this date of service:: hp, u/s, ex Assessment: Patient experiencing pain mostly at the L UT now. Pain is intermittent with soreness at the L mid deltoid region. She continues to demo WNL ROM to the L shoulder. She should benefit from further U/s and progressive strengthening to the L shoulder/postural mm's. Patient Education: Body/Joint mechanics, Home Exercise Program, Education of Plan of Care Patient demonstrates compliance with HEP?: Yes Short Term Goals Goal #1: pt independent with initial HEP Goal to be met by: 04/30/18 Progress towards Goal:: Progressing Goal #2: Improve cervical ROM WFL's Goal to be met by: 04/30/18 Progress towards Goal:: Progressing Goal #3: Decrease muscle tightness/guarding in cervical paraspinal and upper trap Goal to be met by: 04/30/18 Progress towards Goal:: Progressing Trade Mark Attorney Goals Goal #1: Decrease pain to < 3/10 Goal to be met by: 05/14/18 Goal #2: No reports of radicular pain into L shld Goal to be met by: 05/14/18 Goal #3: pt report increased ability to perform normal activities w less pain Goal to be met by: 05/14/18 Plan Dates of Trade Mark Attorney Goals: 05/14/18 Expiration date of current Insurance Approval:: 05/14/18 PLAN: Continue with modalities and therex for the L cspine and L shoulder
--- NOTE | 2018-04-19 14:25 | RS.OPPTDN ---
Subjective Date of Note: 04/19/18 Visit #: 4 Number of visits approved by Insurance: REassess at 10th Date of Evaluation: 04/09/18 Payer Source: MEDICARE Treatment Diagnosis: neck pain, pain in L shld Current Subjective/complaints:: Patient says she is hurting less overall to the L side of her neck and shoulder, but did have trouble sleeping last night. She says it is difficult for her to get in a good position. She says once pain awakens her, she gets up and reads or does something else to distract her. She denies relying on pain medication. *Precautions: n/a - Treatment Modality: Ultrasound Parameters/Method Applied: continuous @ 1.5 w/cm2 x 12 mins to the L UT and along mid deltoid. Patient Position: Sitting - Heat/Cryotherapy Treatment: Hot Pack (over the L side of neck and L shoulder in sitting x 20 mins ) Interventions - Exercise/Activities/Manual Therapy Exercises/Activities: pt receives passive stretching for the cspine SB and rotation bilaterally, concentrating for the L side. She performs active shoulder shrugs, scap adduction, isometric cervical retraction x 5, red tband scap retraction, 2# wand for bilateral shoulder flexion. Reviewed HEP. Total minutes of Exercise: 14 Manual Therapy: na HOME EXERCISE PROGRAM: pt given written HEP including cervical retraction, upper trap stretch, scapular retraction - Charges Timed Code Treatment Minutes: 26 Total Treatment Time: 46 Procedures billed for this date of service:: hp, u/s, ex Assessment: Patient presents with pain to the L UT and L upper arm along the mid deltoid. U/s appears to be beneficial as she does admit improved pain and no limitations in shoulder ROM. She demo good strength with isometrics. Patient does have difficulty sleeping occasionally due to positioning. No tenderness to L UT during u/s or moderate palpation. Patient Education: Home Exercise Program Patient demonstrates compliance with HEP?: Yes Short Term Goals Goal #1: pt independent with initial HEP Goal to be met by: 04/30/18 Progress towards Goal:: Progressing Goal #2: Improve cervical ROM WFL's Goal to be met by: 04/30/18 Progress towards Goal:: Progressing Goal #3: Decrease muscle tightness/guarding in cervical paraspinal and upper trap Goal to be met by: 04/30/18 Progress towards Goal:: Progressing [employer]ter Goals Goal #1: Decrease pain to < 3/10 Goal to be met by: 05/14/18 Goal #2: No reports of radicular pain into L shld Goal to be met by: 05/14/18 Goal #3: pt report increased ability to perform normal activities w less pain Goal to be met by: 05/14/18 Plan Dates of [employer] Parter Goals: 05/14/18 Expiration date of current Insurance Approval:: 05/14/18 PLAN: continue BIW for modalities and therex to improve strength
--- NOTE | 2018-04-24 11:02 | RS.OPPTDN ---
Subjective Date of Note: 04/24/18 Visit #: 5 Number of visits approved by Insurance: 12, Reassess at 10th Date of Evaluation: 04/09/18 Payer Source: MEDICARE Treatment Diagnosis: neck pain, pain in L shld Current Subjective/complaints:: Patient says that her pain continues to not be constant anymore. She reports pain at the L UT and the L upper arm. *Precautions: n/a - Treatment Modality: Ultrasound Parameters/Method Applied: continuous @ 1.5 w/cm2 x 12 mins to the L UT and along the mid deltoid Patient Position: Sitting - Heat/Cryotherapy Treatment: Hot Pack ( over the L UT and shoulder (upper arm) x 20 mins) Interventions - Exercise/Activities/Manual Therapy Exercises/Activities: pt receives passive stretching for the cspine SB and rotation bilaterally, concentrating for the L side. PROM to the L shoulder all motions. Isometric shoulder IR/ER/FLEX/EXT 2x5. She performs active shoulder shrugs, scap adduction, isometric cervical retraction x 5, red tband scap retraction, 2# wand for bilateral shoulder flexion. Added forward chest press 2 # in sitting x 10. Reviewed HEP. Total minutes of Exercise: 16 Manual Therapy: na HOME EXERCISE PROGRAM: pt given written HEP including cervical retraction, upper trap stretch, scapular retraction - Charges Timed Code Treatment Minutes: 28 Total Treatment Time: 43 Procedures billed for this date of service:: hp, u/s, ex Assessment: Patient experiencing less intense pain and less frequent. Pain does not interfere as much during sleep and she is able to baylee more strengthening exercises regarding the L UE/neck. Some fatigue with passive flexion and abd warranting Odilia to request to stop after ~3-4 mins. Good resistance provided with all isometrics. PROM remains WNL as well as AROM for the L UE. Patient Education: Education of diagnosis, Body/Joint mechanics, Home Exercise Program Patient demonstrates compliance with HEP?: Yes Short Term Goals Goal #1: pt independent with initial HEP Goal to be met by: 04/30/18 Progress towards Goal:: Progressing Goal #2: Improve cervical ROM WFL's Goal to be met by: 04/30/18 Progress towards Goal:: Progressing Goal #3: Decrease muscle tightness/guarding in cervical paraspinal and upper trap Goal to be met by: 04/30/18 Progress towards Goal:: Progressing Mcc Goals Goal #1: Decrease pain to < 3/10 Goal to be met by: 05/14/18 Goal #2: No reports of radicular pain into L shld Goal to be met by: 05/14/18 Goal #3: pt report increased ability to perform normal activities w less pain Goal to be met by: 05/14/18 Plan Dates of Mcc Goals: 05/14/18 Expiration date of current Insurance Approval:: 05/14/18 PLAN: Patient to continue BIW advancing exercise and use modalities to ease pain and prepare for therex.
--- NOTE | 2018-04-26 12:02 | RS.CXNS ---
Date of scheduled appointment: 04/26/18 Reason for Cancel/NS: Code Miller/lyla patient staying home during appt time.
--- NOTE | 2018-05-07 13:21 | RS.OPPTDC ---
Date of Discharge: 05/01/18 Date of Evaluation: 04/09/18 Number of Visits: 5 Treatment Diagnosis: neck pain, pain in L shld Current Level of Function: pt received moist heat, u/s, therex and postural techniques. AROM/PROM to L shld is WNL. MMT 4+/5. pt requests to stop PT. Current Complaints/Gains: pt reports pain is no longer constant, but soreness at L upper arm only L upper trap. Functional Outcome Measure - G Codes & Severity Modifier G Codes & Modifier: n/a Source of G Code score: n/a Observation - Observation Posture: Forward Head, Rounded Shoulders, Increased Thoracic Kyphosis Gait - Gait Pattern General Gait Pattern Observation: No Deviations/Normal Interventions - Exercise/Activities/Manual Therapy Exercises/Activities: n/a Manual Therapy: na HOME EXERCISE PROGRAM: pt given written HEP including cervical retraction, upper trap stretch, scapular retraction - Charges Timed Code Treatment Minutes: n/a Total Treatment Time: n/a Procedures billed for this date of service:: n/a Assessment Assessment: pt did not meet goals due to pt called and requested to stop PT. pt did not give reason for the request. Patient Education: Home Exercise Program, Education of Plan of Care Rehab Potential: Good Short Term Goals Goal #1: pt independent with initial HEP Goal to be met by: 04/30/18 Progress towards Goal:: Progressing Goal #2: Improve cervical ROM WFL's Goal to be met by: 04/30/18 Progress towards Goal:: Progressing Goal #3: Decrease muscle tightness/guarding in cervical paraspinal and upper trap Goal to be met by: 04/30/18 Progress towards Goal:: Progressing [facility] Goals Goal #1: Decrease pain to < 3/10 Goal to be met by: 05/14/18 Goal #2: No reports of radicular pain into L shld Goal to be met by: 05/14/18 Goal #3: pt report increased ability to perform normal activities w less pain Goal to be met by: 05/14/18 Plan Comments: pt called and requested to dc PT.
== END 2018-05-13 23:59 ==
PROVIDERS: ATTEND Neurological Surgery
DX: M54.2 Cervicalgia (principal); M25.512 Pain in left shoulder; M50.30 Other cervical disc degeneration, unspecified cervical region

== ENCOUNTER 2018-07-12 07:17 | Outpatient (CLI) | payer OTHER ==
[2018-01-11 17:00] VITALS: BMI 26.0
--- NOTE | 2018-07-12 09:17 | US ---
EXAM: ULTRASOUND AORTA HISTORY: Abdominal pain FINDINGS: Ultrasound aorta. Real time badillo-scale ultrasound, color Doppler imaging and spectral wandy lysis performed. The AP and transverse measurements respectively, in centimeters are as follows: Proximal: 2.3 x 2.1 Mid: 2.0 x 2.2 Distal: 2.1 x 2.1 Right iliac: - (Unable to visualize) Left iliac: - Distal aortic PSV (m/s): No data Diffuse atherosclerosis. IMPRESSION: No aneurysmal caliber of the abdominal aorta was identified sonographically. Atheroscle rotic disease noted.
--- NOTE | 2018-07-12 09:23 | US ---
EXAM: ULTRASOUND ABDOMEN LIMITED HISTORY: Right upper quadrant pain and bloating FINDINGS: Ultrasound abdomen, limited. Rick-scale ultrasound and color Doppler was performed. Live r size was measured at 11 cm, within normal limits. The liver parenchyma demonstrated normal sonograp hic appearance without evidence of intrahepatic biliary dilatation or focal lesion. Patent and hepat opedal main portal vein. No evidence of gallbladder stones or sludge. Gallbladder wall thickness was normal at 0.29 centimete rs and the common duct diameter normal at 0.43 centimeters. The visualized portions of the pancreas appeared unremarkable. There is a 1.2 cm anechoic space in the lower central left kidney which could represent a small simpl e peripelvic cyst. Mild hydronephrosis less likely. Correlate with urinalysis for any hematuria and clinically for any signs of left-sided renal colic. IMPRESSION: 1. No gallbladder pathology identified. Liver appeared normal. 2. There is a 1.2 cm anechoic space in the lower central left kidney which could represent a small s imple peripelvic cyst. Mild hydronephrosis less likely. Correlate with urinalysis for any hematuria and clinically for any signs of left-sided renal colic.
--- NOTE | 2018-07-12 09:24 | DI ---
EXAM: CHEST FRONTAL AND LATERAL VIEWS HISTORY: Cough, smoker. COMPARISON: 02/28/2018 FINDINGS: Heart size and mediastinal contour remain within normal limits. There is at least mild atherosclerotic disease. Mild hyperinflation. No acute infiltrates are seen. No vascular congestio n. There is no consolidation, visible pleural fluid or pneumothorax. Bones reveal no acute fracture . IMPRESSION: 1. Findings which can be consistent with a component chronic obstructive pulmonary disease, correlat e clinically. No acute infiltrates identified. 2. Atherosclerotic disease.
== END 2018-07-12 07:18 | disposition home or self-care (01) ==
LOC: RAD 07:17
PROVIDERS: ATTEND Internal Medicine
DX: R10.11 Right upper quadrant pain (principal); R14.0 Abdominal distension (gaseous); R05 Cough; F17.210 Nicotine dependence, cigarettes, uncomplicated
CPT/HCPCS: 76775

== ENCOUNTER 2018-07-20 08:00 | Outpatient (CLI) | payer OTHER ==
[2018-01-11 17:00] VITALS: BMI 26.0
--- NOTE | 2018-07-20 10:07 | CT ---
EXAM: CT of the abdomen pelvis with contrast History: Right upper quadrant abdominal pain and left lower quadrant abdominal pain. Technique: Multiplanar CT images through the abdomen pelvis were obtained following administration o f IV contrast Findings: Subsegmental atelectasis seen within the lower lungs. Trace right pleural effusion. No a cute osseous abnormalities. Atherosclerotic vascular calcifications. No gallstones identified by CT. No focal liver or splenic lesions. Pancreas is unremarkable. Adrenal glands are normal. Bilateral renal cysts measuring up t o 1 cm on the right and 1.8 cm on the left. No bowel obstruction. No free air. The appendix is nor mal. No bladder wall thickening. 7.2 cm x 6.1 cm mass within the left adnexa. There is a small stephenie unt of fluid in the pelvis. Impression: Large left pelvic mass suspicious for malignancy. Differential diagnosis also includes infection or ovarian torsion. Recommend further evaluation with pelvic ultrasound
--- NOTE | 2018-07-20 13:18 | NM ---
Exam: Hepatobiliary scintigraphy with gallbladder ejection fraction Date of exam: 07/20/2018 Radiopharmaceutical: 5.1 mCi Tc-99m mebrofenin i.v. and 2.0 mcg Kinevac i.v. HISTORY: Right upper quadrant pain FINDINGS: Following intravenous administration of technetium-99m mebrofenin, sequential abdominal im ages were obtained. There is prompt and uniform accumulation of the radiotracer by the liver. There is normal filling of the intrahepatic ducts, common bile duct, and gallbladder. There is normal exc retion of radiotracer into the duodenum. In order to evaluate the contracted oral response of the gallbladder to cholecystokinin, sincalide wa s administered by slow intravenous infusion over 30 minutes. Sequential imaging was continued after the start of sincalide infusion. These images demonstrate adequate contraction of the gallbladder. The calculated gallbladder ejection fraction is 37%. In normal subjects, the lower limit of normal gallbladder ejection fraction is 35%. Impression: Adequate contractile response of the gallbladder to sincalide infusion with a calculated gallbladder ejection fraction measuring 37%. The lower limit of normal gallbladder ejection fraction is 35%.
== END 2018-07-20 08:01 | disposition home or self-care (01) ==
LOC: RAD 08:00
PROVIDERS: ATTEND Internal Medicine
DX: R10.11 Right upper quadrant pain (principal); R10.32 Left lower quadrant pain; R14.0 Abdominal distension (gaseous); R14.2 Eructation

== ENCOUNTER 2021-08-02 10:55 | Inpatient (IN) ==
[2021-08-02 11:25] LABS: BORDETELLA PARAPERTUSSIS (PCR) NOT DETECTED (NOT DETECT); BORDETELLA PERTUSSIS (PCR) NOT DETECTED (NOT DETECT); CHLAMYDIA PNEUMONIAE (PCR) NOT DETECTED (NOT DETECT); CORONAVIRUS 229E (PCR) NOT DETECTED (NOT DETECT); CORONAVIRUS HKU1 (PCR) NOT DETECTED (NOT DETECT); CORONAVIRUS NL63 (PCR) NOT DETECTED (NOT DETECT); CORONAVIRUS OC43 (PCR) NOT DETECTED (NOT DETECT); HUMAN METAPNEUMOVIRUS (PCR) NOT DETECTED (NOT DETECT); HUMAN RHINOVIRUS/ENTEROV (PCR) NOT DETECTED (NOT DETECT); INFLUENZA B (PCR) NOT DETECTED (NOT DETECT); MYCOPLASMA PNEUMONIAE (PCR) NOT DETECTED (NOT DETECT); PARAINFLUENZA VIRUS 1 (PCR) NOT DETECTED (NOT DETECT); PARAINFLUENZA VIRUS 2 (PCR) NOT DETECTED (NOT DETECT); PARAINFLUENZA VIRUS 3 (PCR) NOT DETECTED (NOT DETECT); PARAINFLUENZA VIRUS 4 (PCR) NOT DETECTED (NOT DETECT); RESPIRATORY SYNCYTIAL V (PCR) NOT DETECTED (NOT DETECT); SARS_COV_2 (PCR) NOT DETECTED (NOT DETECT)
[2021-08-02 13:17] VITALS: BMI 22.1
[2021-08-02 13:17] LABS: ADENOVIRUS (PCR) NOT DETECTED (NOT DETECT)
[2021-08-02] MEDS ORDERED: TYLENOL PO PRN (13:21)
[2021-08-02] MEDS ORDERED: ATROPINE SULFATE PFS IVP PRN (13:21)
[2021-08-02] MEDS ORDERED: NITROSTAT SL PRN (13:21)
[2021-08-02 13:51] LABS: BASOPHILS # (AUTO) 0.1 K/uL (0-0.2); BASOPHILS % (AUTO) 0.7 % (0.0-3.0); EOSINOPHILS # (AUTO) 0.1 K/ul (0.0-0.7); EOSINOPHILS % (AUTO) 1.6 % (0.0-7.0); HEMATOCRIT 42.2 % (37.0-47.0); IMMATURE GRANULOCYTE % (AUTO) 0.2 % (0.0-5.0); LYMPHOCYTES # (AUTO) 1.6 K/uL (0.60-3.4); LYMPHOCYTES % (AUTO) 17.6 (10.0-50.0); MEAN CORPUSCULAR HGB CONC 33.2 (31.8-35.4); MEAN CORPUSCULAR VOLUME 93.6 fl (81.0-99.0); MONOCYTES % (AUTO) 11.7 (0-10); NEUTROPHILS # (AUTO) 6.1 K/ul (2.0-6.9); NEUTROPHILS % (AUTO) 68.2 % (42.2-75.2); PLATELET COUNT 224 10^3/uL (140-440); RED BLOOD COUNT 4.51 10^6/ul (4.20-5.40); WHITE BLOOD COUNT 8.87 K/ul (4.6-10.2)
[2021-08-02 13:53] LABS: ABG O2 HGB 92.1 % (95-100); ABG PH 7.42 (7.35-7.45); BEecf 10.5 (-2.0-3.0); COHb 6.4 (0.5-1.5); MetHb 1.3 (0-1.5); TCO2 36.7 (19-24); sO2 98.3 % (94-98); tHb 13.1 g/dl (11.7-17.4)
[2021-08-02 14:04] LABS: ALANINE AMINOTRANSFERASE 16.3 U/L (0-35); ALBUMIN 4.32 g/dL (3.5-5.0); ALKALINE PHOSPHATASE 78.4 U/L (53-141); ASPARTATE AMINO TRANSFERASE 22.5 U/L (14-36); BILIRUBIN,TOTAL 0.62 mg/dL (0.2-1.3); BLOOD UREA NITROGEN 12.6 mg/dL (7-17); CALCIUM 8.88 mg/dL (8.4-10.2); CARBON DIOXIDE 35.2 mmol/L (22-30.0); CHLORIDE 101.4 mmol/L (98-107); CREATINE KINASE 38.2 U/L (30-135); CREATININE 0.44 mg/dL (0.60-1.30); GLUCOSE 97.5 mg/dL (74-106); POTASSIUM 3.16 mmol/L (3.5-5.1); SODIUM 140.9 mmol/L (134.5-145); TOTAL PROTEIN 7.24 g/dL (6.3-8.2)
[2021-08-02] MEDS: DUONEB NEB SCH ×2 (14:14→19:10)
[2021-08-02 14:16] LABS: TROPONIN I < 0.012 ng/ml (0.0000-0.120)
[2021-08-02 14:35] LABS: THYROID STIMULATING HORMONE 0.058 uIU/L (0.465-4.68)
[2021-08-02] MEDS: ZITHROMAX PO SCH (15:16)
[2021-08-02] MEDS: ROCEPHIN 1 GM/50 ML D5W 1 GM/50 ML BAG IV SCH (15:16)
[2021-08-02] MEDS: SOLU-CORTEF 100 MG IVP SCH ×2 (15:16→20:25)
[2021-08-02] MEDS: NORCO 5-325 PO PRN ×2 (15:16→19:47)
[2021-08-02] MEDS: SODIUM CHLORIDE 1,000 ML IV SCH (15:18)
[2021-08-02 15:47] LABS: BILIRUBIN,URINE Negative (NEGATIVE); CLARITY,URINE Clear (CLEAR); COLOR,URINE Yellow (YELLOW); GLUCOSE, URINE (UA) Negative (NEGATIVE); KETONES,URINE Trace (NEGATIVE); LEUKOCYTE ESTERASE ,URINE Negative (NEGATIVE); NITRITE,URINE Negative (NEGATIVE); PH,URINE 8.5 (5-9); PROTEIN,URINE Negative (NEGATIVE); URINE, BLOOD Negative (NEGATIVE)
[2021-08-02] MEDS: COREG PO SCH (17:20)
[2021-08-02] MEDS: CARAFATE PO SCH ×2 (17:20→20:25)
--- NOTE | 2021-08-02 17:40 | CT ---
EXAM: CT chest with and without contrast HISTORY: Short of breath COMPARISON: 06/21/2021 CT chest. TECHNIQUE: Axial CT imaging of the chest was performed with and without contrast. Sagittal and coron al re-formations were done to better evaluate anatomy. FINDINGS: The lungs are clear without suspicious nodule, focal infiltrate or pleural effusion. Ther e is no pneumothorax. Mild emphysema. Enlargement and heterogeneity involving the lower pole of the right thyroid, extending substernal. T he enlarged right lobe of the thyroid displaces the trachea towards the left. There is mild atherosc lerotic calcification of the coronary arteries. Cardiac size is within normal limits. There is no p ericardial effusion. There is no mediastinal lymphadenopathy. Limited visualization of the upper abdomen is unremarkable. No acute osseous abnormality. IMPRESSION: #1. No acute cardiopulmonary process. #2. Emphysema. #3. 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 All CT scans are performed using dose optimization techniques as appropriate to the performed exam an d include at least one of the following: Automated exposure control, adjustment of the mA and/or kV according t o size, and the use of iterative reconstruction technique.
--- NOTE | 2021-08-02 17:49 | CT ---
EXAM: CT of the abdomen pelvis with and without contrast History: Short of breath, epigastric abdominal pain. Technique: Multiplanar CT images through the abdomen pelvis were obtained with and without the admin istration of IV contrast. Findings: Lung bases are clear. No acute osseous abnormalities.. No renal stones and no hydronephrosis. Coronary calcifications. There may have been a cholecystecto my and questionable small residual gallbladder. Atherosclerotic vascular calcifications. Pancreas a nd adrenal glands are unremarkable. Bilateral renal cysts measuring up to 1.9 cm on the right and 3 cm on the left. No hydronephrosis. No liver or splenic lesions. No bowel obstruction. No free air and no ascites. No bladder wall thickening. The uterus is not seen and has likely been surgically removed. No perirectal inflammation. No lymphadenopathy and no abdominal aortic aneurysm. Impression: 1. No acute intra-abdominal or pelvic process. 2. There may have been a previous cholecystectomy versus small residual gallbladder. Correlate with surgical history All CT scans are performed using dose optimization techniques as appropriate to the performed exam an d include at least one of the following: Automated exposure control, adjustment of the mA and/or kV according t o size, and the use of iterative reconstruction technique.
[2021-08-02] MEDS: PULMICORT 0.5 MG/2 ML NEB SCH (19:10)
[2021-08-02] MEDS: PROTONIX IV IVP SCH (20:25)
[2021-08-02 21:36] LABS: CREATINE KINASE 40.6 U/L (30-135)
[2021-08-02 21:48] LABS: TROPONIN I < 0.012 ng/ml (0.0000-0.120)
[2021-08-03] MEDS: SODIUM CHLORIDE 1,000 ML IV SCH (03:27)
[2021-08-03] MEDS: DUONEB NEB SCH ×3 (04:25→19:50)
[2021-08-03] MEDS: PULMICORT 0.5 MG/2 ML NEB SCH ×2 (04:25→19:50)
[2021-08-03 05:20] LABS: BASOPHILS % (AUTO) 0.3 % (0.0-3.0); HEMOGLOBIN 13.2 g/dl (12.0-16.0); IMMATURE GRANULOCYTE % (AUTO) 0.3 % (0.0-5.0); LYMPHOCYTES # (AUTO) 1.3 K/uL (0.60-3.4); LYMPHOCYTES % (AUTO) 14.4 (10.0-50.0); MEAN CORPUSCULAR HEMOGLOBIN 30.6 pg (27.0-31.0); MEAN CORPUSCULAR VOLUME 92.8 fl (81.0-99.0); MONOCYTES # (AUTO) 0.7 K/uL (0.4-2.0); MONOCYTES % (AUTO) 7.4 (0-10); NEUTROPHILS % (AUTO) 77.6 % (42.2-75.2); PLATELET COUNT 204 10^3/uL (140-440); RDW COEFFICIENT OF VARIATION 11.9 % (11.6-14.8); RED BLOOD COUNT 4.31 10^6/ul (4.20-5.40); WHITE BLOOD COUNT 9.02 K/ul (4.6-10.2)
[2021-08-03] MEDS: SOLU-CORTEF 100 MG IVP SCH ×3 (05:26→20:36)
[2021-08-03] MEDS: CARAFATE PO SCH ×4 (05:30→20:36)
[2021-08-03 05:33] LABS: ALANINE AMINOTRANSFERASE 14.5 U/L (0-35); ALBUMIN 3.77 g/dL (3.5-5.0); ALKALINE PHOSPHATASE 60.6 U/L (53-141); ASPARTATE AMINO TRANSFERASE 18.9 U/L (14-36); BILIRUBIN,TOTAL 0.47 mg/dL (0.2-1.3); BLOOD UREA NITROGEN 14.7 mg/dL (7-17); CALCIUM 8.59 mg/dL (8.4-10.2); CARBON DIOXIDE 28.8 mmol/L (22-30.0); CHLORIDE 105.2 mmol/L (98-107); CREATININE 0.39 mg/dL (0.60-1.30); GLUCOSE 113.9 mg/dL (74-106); POTASSIUM 3.42 mmol/L (3.5-5.1); SODIUM 140.1 mmol/L (134.5-145); TOTAL PROTEIN 6.5 g/dL (6.3-8.2)
[2021-08-03] MEDS ORDERED: CITRATE OF MAGNESIA PO ONE (08:32)
[2021-08-03] MEDS ORDERED: COREG PO SCH (09:00)
[2021-08-03] MEDS: ROCEPHIN 1 GM/50 ML D5W 1 GM/50 ML BAG IV SCH (09:04)
[2021-08-03] MEDS: PROTONIX IV IVP SCH ×2 (09:05→20:36)
--- NOTE | 2021-08-03 09:05 | PCM.PROG ---
Attending Provider: ATTENDING PROVIDER: Dr. ROSE MARIE BRUSH This patient is seen with Lachelle Schulte, Nurse Practitioner. DATE OF SERVICE: 08/03/21 SUBJECTIVE: This 70 year old /WHITE F was hospitalized 08/02/21.Respiratory status has improved. Breathing easier this morning. Has not had any fever. Still tachycardic. REVIEW OF SYSTEMS: CONSTITUTIONAL: No night sweats. No fatigue, malaise, lethargy. No fever or chills. Weakness. HEENT: Eyes: No visual changes. No eye pain. No eye discharge. ENT: No runny nose. No epistaxis. No sinus pain. No odynophagia. No congestion. RESPIRATORY: Cough, no congestion. No hemoptysis. Shortness of breath. CARDIOVASCULAR: No angina symptoms. No CHF symptoms. No atypical chest pain for CAD. No palpitations. No orthopnea.. GASTROINTESTINAL: No abdominal pain. No nausea or vomiting. Constipation. No hematemesis. No hematochezia. GENITOURINARY: No urgency. No frequency. No dysuria. No hematuria. No obstructive symptoms. No discharge. No pain. No significant abnormal bleeding. Epigastric pain. MUSCULOSKELETAL: No musculoskeletal pain; no joint swelling. NEUROLOGICAL: Awake, alert, oriented to time, place and person. No headache. No neck pain. No syncope. No seizures. No dizziness. PSYCHIATRIC: Not anxious. No depression. No suicidal thoughts. No homicidal thoughts. SKIN: No rash. No lesions. No wounds. ENDOCRINE: No unexplained weight loss. No weight gain. HEMATOLOGIC/LYMPHATIC: No anemia. No purpura. No petechiae. No prolonged or excessive bleeding. No palpable lymph nodes. PHYSICAL EXAMINATION: GENERAL: The patient is awake, alert and oriented, sitting in bed in no distress. VITAL SIGNS: Temperature 98.1 F, Pulse 100, Respiratory Rate 18, BP 137/71, Pulse Ox 97% HEENT: Head normocephalic, atraumatic. Eyes: Extraocular muscles are intact. Pupils are equal, round and reactive to light and accommodation. Ears: No lesions. Nose appeared normal. Throat: No exudate or erythema. NECK: Supple. No JVD, no carotid bruit. No lymphadenopathy or thyromegaly. LUNGS: Severely diminished breath sounds. Clear to auscultation. Percussion note normal. Chest symmetrical. HEART: S1, S2, no S3. No murmurs. No cyanosis or clubbing. No ascites. Pulses: Dorsalis pedis and posterior tibial pulses +1 to +2 both sides. ABDOMEN: Soft. Non-tender. Bowel sounds active. No CVA tenderness. No mass felt. Mild epigastric tenderness. EXTREMITIES: No edema. Full range of motion of all extremities, equal. NEUROLOGIC: No focal deficit. Cranial nerves II through XII are grossly intact. No headache. No double vision. SKIN: Not dry. Intact. Turgor-normal. LYMPHATIC: No palpable lymph nodes/no lymphedema. MUSCULOSKELETAL: Normal joints with no swelling. Muscle tone is normal. LAB REVIEW: 08/03/21 05:01 08/03/21 05:01 08/03/21 05:01: Sodium 140.1, Potassium 3.42 L, Chloride 105.2, Carbon Dioxide 28.8, Anion Gap 9.52, BUN 14.7, Creatinine 0.39 L, Estimated GFR (MDRD) 162.00, BUN/Creatinine Ratio 37.69, Glucose 113.9 H, Calcium 8.59, Total Bilirubin 0.47, AST 18.9, ALT 14.5, Alkaline Phosphatase 60.6, Total Protein 6.50, Albumin 3.77, Globulin 2.73, Albumin/Globulin Ratio 1.38 08/03/21 05:01: WBC 9.02, RBC 4.31, Hgb 13.2, Hct 40.0, MCV 92.8, MCH 30.6, MCHC 33.0, RDW Coeff of Darin 11.9, Plt Count 204, Immature Gran % (Auto) 0.3, Neut % (Auto) 77.6 H, Lymph % (Auto) 14.4, Maverick % (Auto) 7.4, Eos % (Auto) 0.0, Baso % (Auto) 0.3, Neut # (Auto) 7.0 H, Lymph # (Auto) 1.3, Maverick # (Auto) 0.7, Eos # (Auto) 0.0, Baso # (Auto) 0.0, Immature Gran # (Auto) 0.0 08/02/21 21:21: Total Creatine Kinase 40.6, Troponin I < 0.012 08/02/21 15:24: Urine Color Yellow, Urine Clarity Clear, Urine pH 8.5, Ur Specific [place] 1.020, Urine Protein Negative, Urine Glucose (UA) Negative, Urine Ketones Trace H, Urine Blood Negative, Urine Nitrite Negative, Urine Bilirubin Negative, Urine Urobilinogen 1.0 H, Ur Leukocyte Esterase Negative 08/02/21 13:35: Puncture Site R rad, Base Excess 10.5 H, O2 Saturation 98.3 H, ABG pH 7.42, ABG pCO2 54.0 H, ABG pO2 109.0 H, ABG HCO3 35.0 H, ABG Total CO2 36.7 H, Benjamín Test Y, Hemoglobin 1.3, Oxyhemoglobin 92.1 L, Carboxyhemoglobin 6.4 H, Total Hemoglobin 13.1, O2 Delivery Device Cannula, Oxygen Liter Flow 2.00 08/02/21 13:35: Free T4 1.88 08/02/21 13:35: Sodium 140.9, Potassium 3.16 L, Chloride 101.4, Carbon Dioxide 35.2 H, Anion Gap 7.46, BUN 12.6, Creatinine 0.44 L, Estimated GFR (MDRD) 141.00, BUN/Creatinine Ratio 28.63, Glucose 97.5, Calcium 8.88, Total Bilirubin 0.62, AST 22.5, ALT 16.3, Alkaline Phosphatase 78.4, Total Creatine Kinase 38.2, Troponin I < 0.012, Total Protein 7.24, Albumin 4.32, Globulin 2.92, Albumin/Globulin Ratio 1.47, TSH 0.058 L 08/02/21 13:35: WBC 8.87, RBC 4.51, Hgb 14.0, Hct 42.2, MCV 93.6, MCH 31.0, MCHC 33.2, RDW Coeff of Darin 12.0, Plt Count 224, Immature Gran % (Auto) 0.2, Neut % (Auto) 68.2, Lymph % (Auto) 17.6, Maverick % (Auto) 11.7 H, Eos % (Auto) 1.6, Baso % (Auto) 0.7, Neut # (Auto) 6.1, Lymph # (Auto) 1.6, Maverick # (Auto) 1.0, Eos # (Auto) 0.1, Baso # (Auto) 0.1, Immature Gran # (Auto) 0.0 08/02/21 12:23: Adenovirus (PCR) Not detected, B. pertussis DNA (PCR) Not detected, B.parapertussis DNA PCR Not detected, C. pneumoniae DNA (PCR) Not detected, Coronavirus OC43 (PCR) Not detected, Coronavirus HKU1 (PCR) Not detected, Coronavirus 229E (PCR) Not detected, Coronavirus NL63 (PCR) Not detected, Human Metapneumovir PCR Not detected, Influenza Type A (PCR) Not detected, Influenza B (RT-PCR) Not detected, M. pneumoniae (PCR) Not detected, Parainfluenza 1 (PCR) Not detected, Parainfluenza 2 (PCR) Not detected, Parainfluenza 3 (PCR) Not detected, Parainfluenza 4 (PCR) Not detected, RSV (PCR) Not detected, Entero/Rhino (PCR) Not detected, SARS-CoV-2 (PCR) Not detected ASSESSMENT: Please see below. 1. Acute pneumonitis 2. Acute respiratory failure 3. End stage COPD 4. Sinus tachycardic 5. Epigastric pain 6. Constipation PLAN: 1. Half bottle mag citrate 2. Increase Coreg to 6.25mg PO BID 3. Potassium 20meq daily 4. Stop normal saline Plan and coordination of the patient's care discussed in the presence of Circular Ripsaw Operator and nurse. SCRIBED BY: Austin BROOKS scribed while in presence of service performed by Dr. Brush/Lachelle Schulte APRN on 08/03/21 ([id number])
[2021-08-03] MEDS: COREG PO SCH ×3 (09:06→17:22)
[2021-08-03] MEDS: ZITHROMAX PO SCH (09:07)
[2021-08-03] MEDS: LIPITOR PO SCH (09:07)
[2021-08-03] MEDS: NORVASC PO SCH (09:08)
[2021-08-03] MEDS: K-DUR PO SCH (09:08)
[2021-08-03] MEDS: ASPIRIN CHEWABLE PO SCH (09:08)
[2021-08-03] MEDS: NORCO 5-325 PO PRN (09:13)
--- NOTE | 2021-08-03 11:14 | HP ---
DATE OF SERVICE: 08/02/21 REASON FOR HOSPITALIZATION/HISTORY OF PRESENT ILLNESS: Cough/congestion yellow phlegm. Had cholecystectomy 07/18/21 Dr. Fortune. Went to ER 07/25 abdominal pain, cough and was sent home. Cough and shortness of breath is worse. Fever off and on. PAST MEDICAL HISTORY: Acute pneumonitis GERD O2 PRN Insomnia COPD Rep carotid bruit PAST SURGICAL HISTORY: 3G section Gallbladder Hernia groin Hysterectomy REVIEW OF SYSTEMS: CONSTITUTIONAL: No fever, Fatigue. HEENT: Sinus drainage, no sore throat. RESPIRATORY: Cough; yellow sputum, no congestion. CARDIOVASCULAR: No atypical chest pain for coronary artery disease. No angina, CHF symptoms, palpitations. Shortness of breath. GASTROINTESTINAL: No melena or abdominal pain. GERD. GENITOURINARY: No hematuria, no prostatism, no polyuria. VOICE PROFESSOR: No blackout, no dizziness, no headache, no double vision. MUSCULOSKELETAL: No osteoarthritis pain, no joint swelling. ENDOCRINE: No weight loss, no weight gain. SKIN: Not dry, no rash. PSYCHIATRIC: Not anxious, no depression, no suicidal thoughts, no homicidal thoughts. SOCIAL HISTORY: Marital Status: . Alcohol Usage: Yes. Tobacco Usage: No. FAMILY HISTORY: Father unknown Mother heart problems Brother 2; one on alive Sister three; one and two alive. MEDICATIONS: Amlodipine 5mg BID Aspirin 81mg daily Atorvastatin 20mg Tramadol 50mg HS BID Coreg 3.125mg Vitamin E Vitamin D Ventolin two puff QID Budesonide 0.5mg 2ml two BID Yupelri 175mcg/3ml one daily O2 at HS Omeprazole 40mg daily Vitamin B Amoxicillin BID ALLERGIES: Vytorin Protonix PHYSICAL EXAMINATION: V/S: Pulse 102, blood pressure 156/88, temperature 98.4, O2 saturation 98% O2 nasal cannula 2 liters. BMI 21.4, height 5'3, weight 120.8. GENERAL APPEARANCE: Oriented times three. HEENT: Yellow Sputum. NECK: No JVP, no bruits. RESPIRATORY:Severely diminished breath sounds bilaterally. Rhonchi. CARDIOVASCULAR: S1, S2, no S3. Tachy, no murmur. No cyanosis, clubbing. No ascites. GI/ABDOMEN: No tenderness. Bowel sounds are active. incision on abdomen, intact. No surrounding erythema. EXTREMITIES: edema, pulses +1, equal. VOICE PROFESSOR: Deep tendon reflexes, sensory, motor and gait all normal. RECTAL: Dr. oH 03/04 Repeat in 3 years/PELVIC: Hysterectomy 10/01. Mammogram 09/02 Radha. ASSESSMENT: 1. Acute pneumonitis 2. Shortness of breath 3. Dehydration 4. Epigastric pain 5. History of H. Pylori 6. Status post Cholecystectomy 07/21/21 Dr. Fortune 7. O2 PRN 8. Insomnia 9. Constipation 10. Diverticulosis 11. Crohn's 12. GERD 13. Hiatal hernia 14. Cervical radiculopathy 15. Smoker 16. Non compliant of diet and medications. 17. COPD 18. History of respiratory failure 19. Right carotid bruit 20. Thyroid nodule, BX negative 21. History of MS 22. CAD with stent 23. PAD 24. Status post hysterectomy with tumor 25. Osteoporosis 26. Dyslipidemia PLAN: 1. COVID test in drive through before 2. Routine telemetry orders 3. CBC and CMP now and daily 4. T5 TSH 5. ABG on room air 6. Chest x-ray 7. CT chest with and without 8. CT abdomen and pelvis with and without 9. Normal saline IV at 75cc an hour 10. Soft diet 11. [place] 5mg PO TID PRN 12. O2 as needed 13. Carafate liquid 1gram PO QID 14. Protonix 40mg IV Q 12 hours 15. Blood cultures times two 16. Sputum culture 17. Pulmicort NEB 0.5mg BID, Hold inhaler 18. DUO NEBS Scheduled TID 19. Rocephin 1 gram IV daily 20. Zithromax 500mg PO daily 21. Solu-Cortef 100mg IV Q 8 hours. 22. U/A TIME SPENT: More than 70 minutes. MTDD
[2021-08-03] MEDS: ULTRAM PO PRN ×2 (13:08→21:35)
[2021-08-03] MEDS ORDERED: DULCOLAX RC PRN (19:36)
[2021-08-04] MEDS: DUONEB NEB SCH ×3 (04:50→19:30)
[2021-08-04] MEDS: PULMICORT 0.5 MG/2 ML NEB SCH ×2 (04:50→19:30)
[2021-08-04] MEDS: SOLU-CORTEF 100 MG IVP SCH ×3 (05:14→20:33)
[2021-08-04] MEDS: CARAFATE PO SCH ×4 (05:30→20:26)
[2021-08-04 05:38] LABS: BASOPHILS % (AUTO) 0.2 % (0.0-3.0); HEMATOCRIT 38.8 % (37.0-47.0); HEMOGLOBIN 12.9 g/dl (12.0-16.0); IMMATURE GRANULOCYTE # (AUTO) 0.1 (0.0-1.0); IMMATURE GRANULOCYTE % (AUTO) 0.4 % (0.0-5.0); LYMPHOCYTES # (AUTO) 1.1 K/uL (0.60-3.4); LYMPHOCYTES % (AUTO) 9.5 (10.0-50.0); MEAN CORPUSCULAR HEMOGLOBIN 31.3 pg (27.0-31.0); MEAN CORPUSCULAR HGB CONC 33.2 (31.8-35.4); MEAN CORPUSCULAR VOLUME 94.2 fl (81.0-99.0); MONOCYTES # (AUTO) 0.7 K/uL (0.4-2.0); MONOCYTES % (AUTO) 5.7 (0-10); NEUTROPHILS # (AUTO) 10.1 K/ul (2.0-6.9); NEUTROPHILS % (AUTO) 84.2 % (42.2-75.2); PLATELET COUNT 213 10^3/uL (140-440); RDW COEFFICIENT OF VARIATION 12.4 % (11.6-14.8); RED BLOOD COUNT 4.12 10^6/ul (4.20-5.40); WHITE BLOOD COUNT 12.01 K/ul (4.6-10.2)
[2021-08-04 05:51] LABS: ALANINE AMINOTRANSFERASE 16.3 U/L (0-35); ALBUMIN 3.81 g/dL (3.5-5.0); ALKALINE PHOSPHATASE 56.5 U/L (53-141); ASPARTATE AMINO TRANSFERASE 17.7 U/L (14-36); BILIRUBIN,TOTAL 0.32 mg/dL (0.2-1.3); BLOOD UREA NITROGEN 17.4 mg/dL (7-17); CALCIUM 9.04 mg/dL (8.4-10.2); CARBON DIOXIDE 34.5 mmol/L (22-30.0); CHLORIDE 102.2 mmol/L (98-107); CREATININE 0.53 mg/dL (0.60-1.30); GLUCOSE 126.9 mg/dL (74-106); POTASSIUM 3.74 mmol/L (3.5-5.1); SODIUM 142.8 mmol/L (134.5-145); TOTAL PROTEIN 6.37 g/dL (6.3-8.2)
[2021-08-04] MEDS: COREG PO SCH ×2 (08:18→17:04)
[2021-08-04] MEDS: PROTONIX IV IVP SCH ×2 (08:18→20:34)
[2021-08-04] MEDS: LIPITOR PO SCH (08:18)
[2021-08-04] MEDS: ASPIRIN CHEWABLE PO SCH (08:18)
[2021-08-04] MEDS: ROCEPHIN 1 GM/50 ML D5W 1 GM/50 ML BAG IV SCH (08:18)
[2021-08-04] MEDS: MIRALAX PO SCH (08:18)
[2021-08-04] MEDS: ZITHROMAX PO SCH (08:19)
[2021-08-04] MEDS: K-DUR PO SCH (08:19)
[2021-08-04] MEDS: NORVASC PO SCH (08:19)
[2021-08-04] MEDS: ULTRAM PO PRN ×2 (11:17→18:41)
[2021-08-05] MEDS: SOLU-CORTEF 100 MG IVP SCH (04:26)
[2021-08-05] MEDS: ULTRAM PO PRN ×3 (04:34→22:14)
[2021-08-05] MEDS: DUONEB NEB SCH ×3 (04:45→19:50)
[2021-08-05] MEDS: PULMICORT 0.5 MG/2 ML NEB SCH ×2 (04:45→19:50)
[2021-08-05 05:33] LABS: BASOPHILS % (AUTO) 0.1 % (0.0-3.0); HEMATOCRIT 36.5 % (37.0-47.0); IMMATURE GRANULOCYTE # (AUTO) 0.1 (0.0-1.0); IMMATURE GRANULOCYTE % (AUTO) 0.6 % (0.0-5.0); LYMPHOCYTES # (AUTO) 1.2 K/uL (0.60-3.4); LYMPHOCYTES % (AUTO) 8.7 (10.0-50.0); MEAN CORPUSCULAR HGB CONC 32.9 (31.8-35.4); MEAN CORPUSCULAR VOLUME 94.3 fl (81.0-99.0); MONOCYTES % (AUTO) 7.5 (0-10); NEUTROPHILS # (AUTO) 11.6 K/ul (2.0-6.9); NEUTROPHILS % (AUTO) 83.1 % (42.2-75.2); PLATELET COUNT 192 10^3/uL (140-440); RDW COEFFICIENT OF VARIATION 12.6 % (11.6-14.8); RED BLOOD COUNT 3.87 10^6/ul (4.20-5.40); WHITE BLOOD COUNT 13.92 K/ul (4.6-10.2)
[2021-08-05 05:41] LABS: ALANINE AMINOTRANSFERASE 14.2 U/L (0-35); ALBUMIN 3.59 g/dL (3.5-5.0); ALKALINE PHOSPHATASE 49.5 U/L (53-141); ASPARTATE AMINO TRANSFERASE 16.9 U/L (14-36); BILIRUBIN,TOTAL 0.26 mg/dL (0.2-1.3); BLOOD UREA NITROGEN 21.5 mg/dL (7-17); CALCIUM 8.89 mg/dL (8.4-10.2); CARBON DIOXIDE 34.1 mmol/L (22-30.0); CHLORIDE 101.7 mmol/L (98-107); CREATININE 0.51 mg/dL (0.60-1.30); GLUCOSE 116.7 mg/dL (74-106); POTASSIUM 3.63 mmol/L (3.5-5.1); SODIUM 140.9 mmol/L (134.5-145); TOTAL PROTEIN 6.09 g/dL (6.3-8.2)
[2021-08-05] MEDS: CARAFATE PO SCH ×4 (05:43→20:36)
[2021-08-05] MEDS: COLACE PO SCH ×2 (09:25→20:36)
[2021-08-05] MEDS: MIRALAX PO SCH (09:25)
[2021-08-05] MEDS: LIPITOR PO SCH (09:25)
[2021-08-05] MEDS: NORVASC PO SCH (09:25)
[2021-08-05] MEDS: PROTONIX IV IVP SCH ×2 (09:25→20:33)
[2021-08-05] MEDS: ROCEPHIN 1 GM/50 ML D5W 1 GM/50 ML BAG IV SCH (09:25)
[2021-08-05] MEDS: COREG PO SCH ×2 (09:25→16:53)
[2021-08-05] MEDS: ASPIRIN CHEWABLE PO SCH (09:26)
[2021-08-05] MEDS: K-DUR PO SCH (09:26)
--- NOTE | 2021-08-05 09:49 | PCM.PROG ---
Attending Provider: ATTENDING PROVIDER: Dr. ROSE MRAIE BRUSH This patient is seen with Lachelle Schulte, Nurse Practitioner. DATE OF SERVICE: 08/05/21 SUBJECTIVE: This 70 year old /WHITE F was hospitalized 08/02/21. Cough is improved less short of breath. Epigastric pain has improved after having bowel movement successful with Mag Citrate. Will continue with Miralax REVIEW OF SYSTEMS: CONSTITUTIONAL: No night sweats. No fatigue, malaise, lethargy. No fever or chills. HEENT: Eyes: No visual changes. No eye pain. No eye discharge. ENT: No runny nose. No epistaxis. No sinus pain. No odynophagia. No congestion. RESPIRATORY: Cough, no congestion. No hemoptysis. Shortness of breath. CARDIOVASCULAR: No angina symptoms. No CHF symptoms. No atypical chest pain for CAD. No palpitations. No orthopnea.. GASTROINTESTINAL: No abdominal pain. No nausea or vomiting. Constipation. No hematemesis. No hematochezia. Epigastric pain. GENITOURINARY: No urgency. No frequency. No dysuria. No hematuria. No obstructive symptoms. No discharge. No pain. No significant abnormal bleeding. MUSCULOSKELETAL: No musculoskeletal pain; no joint swelling. NEUROLOGICAL: Awake, alert, oriented to time, place and person. No headache. No neck pain. No syncope. No seizures. No dizziness. PSYCHIATRIC: Not anxious. No depression. No suicidal thoughts. No homicidal thoughts. SKIN: No rash. No lesions. No wounds. ENDOCRINE: No unexplained weight loss. No weight gain. HEMATOLOGIC/LYMPHATIC: No anemia. No purpura. No petechiae. No prolonged or excessive bleeding. No palpable lymph nodes. PHYSICAL EXAMINATION: GENERAL: The patient is awake, alert and oriented, lying in bed in no distress. VITAL SIGNS: Temperature 97.8 F, Pulse 87, Respiratory Rate 20, BP 146/79, Pulse Ox 96% HEENT: Head normocephalic, atraumatic. Eyes: Extraocular muscles are intact. Pupils are equal, round and reactive to light and accommodation. Ears: No lesions. Nose appeared normal. Throat: No exudate or erythema. NECK: Supple. No JVD, no carotid bruit. No lymphadenopathy or thyromegaly. LUNGS: Diminished breath sounds. Clear to auscultation. Percussion note normal. Chest symmetrical. HEART: S1, S2, no S3. No murmurs. No cyanosis or clubbing. No ascites. Pulses: Dorsalis pedis and posterior tibial pulses +1 to +2 both sides. ABDOMEN: Soft. Non-tender. Bowel sounds active. No CVA tenderness. No mass felt. EXTREMITIES: No edema. Full range of motion of all extremities, equal. NEUROLOGIC: No focal deficit. Cranial nerves II through XII are grossly intact. No headache. No double vision. SKIN: Not dry. Intact. Turgor-normal. LYMPHATIC: No palpable lymph nodes/no lymphedema. MUSCULOSKELETAL: Normal joints with no swelling. Muscle tone is normal. LAB REVIEW: 08/05/21 04:41 08/05/21 04:41 08/05/21 04:41: Sodium 140.9, Potassium 3.63, Chloride 101.7, Carbon Dioxide 34.1 H, Anion Gap 8.73, BUN 21.5 H, Creatinine 0.51 L, Estimated GFR (MDRD) 119.00, BUN/Creatinine Ratio 42.15, Glucose 116.7 H, Calcium 8.89, Total Bilirubin 0.26, AST 16.9, ALT 14.2, Alkaline Phosphatase 49.5 L, Total Protein 6.09 L, Albumin 3.59, Globulin 2.50, Albumin/Globulin Ratio 1.43 08/05/21 04:41: WBC 13.92 H, RBC 3.87 L, Hgb 12.0, Hct 36.5 L, MCV 94.3, MCH 31.0, MCHC 32.9, RDW Coeff of Darin 12.6, Plt Count 192, Immature Gran % (Auto) 0.6, Neut % (Auto) 83.1 H, Lymph % (Auto) 8.7 L, [place] % (Auto) 7.5, Eos % (Auto) 0.0, Baso % (Auto) 0.1, Neut # (Auto) 11.6 H, Lymph # (Auto) 1.2, [place] # (Auto) 1.0, Eos # (Auto) 0.0, Baso # (Auto) 0.0, Immature Gran # (Auto) 0.1 ASSESSMENT: Please see below. 1. Acute pneumonitis 2. COPD 3. Epigastric pain due to constipation PLAN: 1. Colace 100mg BID 2. Discontinue steroids 3. 20mg Prednisone tonight PO start PO BID tomorrow 4. Starting tomorrow Omnicef 300mg BID 5. Start tomorrow Protonix 40mg PO BID Plan and coordination of the patient's care discussed in the presence of Machine Taper and nurse. SCRIBED BY: Berta BROOKSist scribed while in presence of service performed by Dr. Brush/Lachelle Schulte APRN on 08/05/21 ([id number])
--- NOTE | 2021-08-05 11:37 | PN ---
DATE OF SERVICE: 08/04/21 SUBJECTIVE: 70 year old white female hospitalized with acute pneumonitis, cough and congestion and dehydration. The patient's condition seems to have improved. She had abdominal pain off and on likely from constipation. She says that she had moved her bowels several times and feels a lot better. The appetite seems to have improved. REVIEW OF SYSTEMS: CONSTITUTIONAL: No night sweats. No fatigue, malaise, lethargy. No fever or chills. HEENT: Eyes: No visual changes. No eye pain. No eye discharge. ENT: No runny nose. No epistaxis. No sinus pain. No sore throat. No odynophagia. No congestion. RESPIRATORY: Cough much less, no congestion. No hemoptysis. No shortness of breath. CARDIOVASCULAR: No angina symptoms. No CHF symptoms. No atypical chest pain for CAD. No palpitations. No PND. No orthopnea. GASTROINTESTINAL: No abdominal pain. No nausea or vomiting. No diarrhea or constipation. No hematemesis. No hematochezia. GENITOURINARY: No urgency. No frequency. No dysuria. No hematuria. No obstructive symptoms. No discharge. No pain. No significant abnormal bleeding. MUSCULOSKELETAL: No musculoskeletal pain; no joint swelling. NEUROLOGICAL: No headache. No neck pain. No syncope. No seizures. No dizziness. PSYCHIATRIC: Not anxious. No depression. No suicidal thoughts. No homicidal thoughts. SKIN: No rash. No lesions. No wounds. ENDOCRINE: No unexplained weight loss. No weight gain. HEMATOLOGIC/LYMPHATIC: No anemia. No purpura. No petechiae. No prolonged or excessive bleeding. No palpable lymph nodes. PHYSICAL EXAMINATION: VITAL SIGNS: Temperature 97.9, pulse 80, respiratory rate 18, blood pressure 124/65 and pulse ox 94%. HEENT: Head normocephalic, atraumatic. Eyes: Extraocular muscles are intact. Pupils are equal, round and reactive to light and accommodation. Ears: No lesions. Nose appeared normal. Throat: No exudate or erythema. NECK: Supple. No JVD, no carotid bruit. No lymphadenopathy or thyromegaly. LUNGS: Decreased breath sounds, mild wheeze. Percussion note normal. Chest symmetrical. HEART: S1, S2, no S3. No murmurs. No cyanosis or clubbing. No ascites. Pulses: Dorsalis pedis and posterior tibial pulses +1 to +2 bilaterally. ABDOMEN: Soft. Nontender. Bowel sounds active. No CVA tenderness. No mass felt. EXTREMITIES: No edema. Full range of motion of all extremities, equal. NEUROLOGIC: No focal deficit. Cranial nerves II through XII are grossly intact. No headache. No double vision. SKIN: Not dry. Intact. Turgor - normal. LYMPHATIC: No palpable lymph nodes/no lymphedema. MUSCULOSKELETAL: Normal joints with no swelling. Muscle tone is normal. LABS: Hgb 12.9, hct 38, WBC 12,000 normal differential, creatinine 0.5, BUN 17, potassium 3.7. ASSESSMENT: 1. Acute pneumonitis/bronchitis seems to be resolving 2. Dehydration seems to be subsiding. The patient's skin turgor is better. Appetite is better. 3. Severe constipation seems to have resolved. The patient was taking [place] for abdominal pain that could have been the reason why she was constipated. We cut down the [place] twice a day and advised not to take [place] just take Tramadol for the pain. PLAN: 1. Counseling for smoking done. The patient says that she has been short of breath on minimal exertion and told her likely cause is her lungs with smoking. 2. Was wondering about her heart. We will do echocardiogram to evaluate LV function before discharge. TIME SPENT: More than 30 minutes. Plan and coordination of the patient's care discussed in the presence of nurse. SHANNAN
--- NOTE | 2021-08-05 14:18 | PN ---
DATE OF SERVICE: 08/03/21 SUBJECTIVE: The patient's condition is improving. Her breathing is improving. Her new problem which was brought up by the night nurse was abdominal discomfort more like constipation. The patient wanted an enema. She didn't have bowel movement today. The patient's abdomen is soft with active bowel sounds according to the nurse, a fleet enema and also Dulcolax suppository as needed. We will decrease the narcotic to twice a day from three times a day TIME SPENT: More than 30 minutes. Plan and coordination of the patient's care discussed in the presence of nurse. SHANNAN
[2021-08-05] MEDS: PREDNISONE PO SCH (16:53)
[2021-08-05 21:30] VITALS: TEMP 97.9
[2021-08-06] MEDS: DUONEB NEB SCH (05:07)
[2021-08-06] MEDS: PULMICORT 0.5 MG/2 ML NEB SCH (05:07)
[2021-08-06 05:17] VITALS: BP 142/72
[2021-08-06] MEDS: CARAFATE PO SCH ×2 (05:47→11:57)
[2021-08-06 05:48] LABS: BASOPHILS % (AUTO) 0.2 % (0.0-3.0); EOSINOPHILS % (AUTO) 0.1 % (0.0-7.0); HEMATOCRIT 37.6 % (37.0-47.0); HEMOGLOBIN 12.3 g/dl (12.0-16.0); IMMATURE GRANULOCYTE # (AUTO) 0.1 (0.0-1.0); IMMATURE GRANULOCYTE % (AUTO) 0.5 % (0.0-5.0); LYMPHOCYTES # (AUTO) 1.5 K/uL (0.60-3.4); LYMPHOCYTES % (AUTO) 11.3 (10.0-50.0); MEAN CORPUSCULAR HEMOGLOBIN 30.8 pg (27.0-31.0); MEAN CORPUSCULAR HGB CONC 32.7 (31.8-35.4); MONOCYTES # (AUTO) 1.2 K/uL (0.4-2.0); MONOCYTES % (AUTO) 9.2 (0-10); NEUTROPHILS # (AUTO) 10.5 K/ul (2.0-6.9); NEUTROPHILS % (AUTO) 78.7 % (42.2-75.2); PLATELET COUNT 186 10^3/uL (140-440); RDW COEFFICIENT OF VARIATION 12.7 % (11.6-14.8); WHITE BLOOD COUNT 13.32 K/ul (4.6-10.2)
[2021-08-06 06:09] LABS: ALANINE AMINOTRANSFERASE 17.7 U/L (0-35); ALBUMIN 3.61 g/dL (3.5-5.0); ALKALINE PHOSPHATASE 49.2 U/L (53-141); ASPARTATE AMINO TRANSFERASE 17.8 U/L (14-36); BILIRUBIN,TOTAL 0.23 mg/dL (0.2-1.3); CALCIUM 8.91 mg/dL (8.4-10.2); CHLORIDE 101.7 mmol/L (98-107); CREATININE 0.54 mg/dL (0.60-1.30); GLUCOSE 102.4 mg/dL (74-106); POTASSIUM 3.73 mmol/L (3.5-5.1); SODIUM 139.7 mmol/L (134.5-145); TOTAL PROTEIN 6.09 g/dL (6.3-8.2)
[2021-08-06] MEDS ORDERED: PROTONIX PO SCH (06:30)
[2021-08-06] MEDS: K-DUR PO SCH (08:49)
[2021-08-06] MEDS: COLACE PO SCH (08:49)
[2021-08-06] MEDS: NORVASC PO SCH (08:50)
[2021-08-06] MEDS: COREG PO SCH (08:50)
[2021-08-06] MEDS: PREDNISONE PO SCH (08:50)
[2021-08-06] MEDS: ASPIRIN CHEWABLE PO SCH (08:50)
[2021-08-06] MEDS: LIPITOR PO SCH (08:50)
[2021-08-06] MEDS: MIRALAX PO SCH (08:51)
[2021-08-06] MEDS ORDERED: OMNICEF PO SCH (09:00)
--- NOTE | 2021-08-06 10:37 | PCM.PROG ---
Attending Provider: ATTENDING PROVIDER: Dr. ROSE MARIE BRUSH DATE OF SERVICE: 08/06/21 SUBJECTIVE: This 70 year old /WHITE F was hospitalized 08/02/21 with acute bronchitis/pneumonitis and dehydration. The patient's condition has improved remarkably and she wants to go home. REVIEW OF SYSTEMS: CONSTITUTIONAL: No night sweats. No fatigue, malaise, lethargy. No fever or chil ls. HEENT: Eyes: No visual changes. No eye pain. No eye discharge. ENT: No runny nose. No epistaxis. No sinus pain. No odynophagia. No congestion. RESPIRATORY: No cough, no congestion. No hemoptysis. No shortness of breath. CARDIOVASCULAR: No angina symptoms. No CHF symptoms. No atypical chest pain for CAD. No palpitations. No orthopnea.. GASTROINTESTINAL: No abdominal pain. No nausea or vomiting. No diarrhea or constipation. No hematemesis. No hematochezia. GENITOURINARY: No urgency. No frequency. No dysuria. No hematuria. No obstructive symptoms. No discharge. No pain. No significant abnormal bleeding. MUSCULOSKELETAL: No musculoskeletal pain; no joint swelling. NEUROLOGICAL: Awake, alert, oriented to time, place and person. No headache. No neck pain. No syncope. No seizures. No dizziness. PSYCHIATRIC: Not anxious. No depression. No suicidal thoughts. No homicidal thoughts. SKIN: No rash. No lesions. No wounds. ENDOCRINE: No unexplained weight loss. No weight gain. HEMATOLOGIC/LYMPHATIC: No anemia. No purpura. No petechiae. No prolonged or excessive bleeding. No palpable lymph nodes. PHYSICAL EXAMINATION: GENERAL: The patient is awake, alert and oriented to time, place and person, sitting in bed in no distress. VITAL SIGNS: Temperature 97.9 F, Pulse 85, Respiratory Rate 19, BP 142/72, Pulse Ox 95% HEENT: Head normocephalic, atraumatic. Eyes: Extraocular muscles are intact. Pupils are equal, round and reactive to light and accommodation. Ears: No lesions. Nose appeared normal. Throat: No exudate or erythema. NECK: Supple. No JVD, no carotid bruit. No lymphadenopathy or thyromegaly. LUNGS: Clear to auscultation. Percussion note normal. Chest symmetrical. HEART: S1, S2, no S3. No murmurs. No cyanosis or clubbing. No ascites. Pulses: Dorsalis pedis and posterior tibial pulses +1 to +2 both sides. ABDOMEN: Soft. Non-tender. Bowel sounds active. No CVA tenderness. No mass felt. EXTREMITIES: No edema. Full range of motion of all extremities, equal. NEUROLOGIC: No focal deficit. Cranial nerves II through XII are grossly intact. No headache, no double vision or headache. SKIN: Warm and dry. Intact. Turgor-normal. LYMPHATIC: No palpable lymph nodes/no lymphedema. MUSCULOSKELETAL: Normal joints with no swelling. Muscle tone is normal. LAB REVIEW: 08/06/21 05:05 08/06/21 05:05 08/06/21 05:05: Sodium 139.7, Potassium 3.73, Chloride 101.7, Carbon Dioxide 36.0 H, Anion Gap 5.73, BUN 22.0 H, Creatinine 0.54 L, Estimated GFR (MDRD) 111.00, BUN/Creatinine Ratio 40.74, Glucose 102.4, Calcium 8.91, Total Bilirubin 0.23, AST 17.8, ALT 17.7, Alkaline Phosphatase 49.2 L, Total Protein 6.09 L, Albumin 3.61, Globulin 2.48, Albumin/Globulin Ratio 1.45 08/06/21 05:05: WBC 13.32 H, RBC 4.00 L, Hgb 12.3, Hct 37.6, MCV 94.0, MCH 30.8, MCHC 32.7, RDW Coeff of Darin 12.7, Plt Count 186, Immature Gran % (Auto) 0.5, Neut % (Auto) 78.7 H, Lymph % (Auto) 11.3, [place] % (Auto) 9.2, Eos % (Auto) 0.1, Baso % (Auto) 0.2, Neut # (Auto) 10.5 H, Lymph # (Auto) 1.5, [place] # (Auto) 1.2, Eos # (Auto) 0.0, Baso # (Auto) 0.0, Immature Gran # (Auto) 0.1 ASSESSMENT: Please see below. 1. Acute pneumonitis/bronchitis 2. COPD, resolved. COPD persists but the patient says that she is going to quit smoking. Smokes three cigarettes a day. PLAN: 1. Coreg 6.25mg PO BID 2. Omnicef 300mg PO BID 3. Prednisone 10mg PO daily 4. Will do echo before discharge 5. Has appointment for thyroid nodules at [facility] next month. Plan and coordination of the patient's care discussed in the presence of Rubber Worker and nurse. SCRIBED BY: Austin BROOKS scribed while in presence of service performed by Dr. ROSE MARIE BRUSH on 08/06/21 ([id number])
--- NOTE | 2021-08-06 13:53 | PN ---
DATE OF SERVICE: 08/05/21 SUBJECTIVE: The patient was seen and examined with the Nurse Practitioner. 70 year old white female was hospitalized with acute pneumonitis, shortness of breath and dehydration. The patient's condition has improved. Hydration status has improved. Her constipation has resolved. Strongly advised to quit smoking. Counseling for smoking done. TIME SPENT: More than 30 minutes. Plan and coordination of the patient's care discussed in the presence of nurse. SHANNAN
--- NOTE | 2021-08-10 07:55 | ECHO2D ---
Date of Exam: 08/06/2021 Ordering Physician: DR. ROSE MARIE BRUSH Room #: 104 Reason for Echo: SOB, STENT, HTN, [place], COPD M-Mode Normal Adult Results LV Dimensions Normal Adult Results AoV Opening excursions >1.6 >1.6 LVEDD-base- 3.5-5.8 4.5 Ao root dimensions 2.0-3.7 3.3 LVESD-base- 3.1-4.6 L. Atrium dimensions 1.9-3.8 3.9 Post. Wall thickness 0.8-1.1 1.0 IV septum (thickness) 0.7-1.2 0.9 Post. Wall excursion 0.72-1.3 NORMAL Septal motion NORMAL Systolic motion R. Ventricular cavity 1.5-2.0 4.0 LVEF 60% 74% Paradoxical septal wall motion NORMAL 2-D : 2-D M Mode Echocardiogram was performed using apical four chamber and left parasternal long and short axis views. Mitral, tricuspid and aortic valves appear to be normal. Contractility of the left ventricle seems to be normal, so is the cavity size. Left atrial cavity size and aortic root appear to be normal. There is no pericardial effusion. There is no thrombus noted in the left ventricle or left atrial cavity. ENLARGED RIGHT VENTRICLE CAVITY M-MODE: MV: CALCIFIC MITRAL VALVE ANNULUS AV: NORMAL TV: NORMAL PV: CHAMBER SIZE: ENLARGED RIGHT VENTRICLE CAVITY WALL MOTION: NORMAL PERICARDIUM: NORMAL INTERPRETATION: 1. ENLARGED RIGHT VENTRICLE CAVITY 2. NORMAL VALVES 3. NORMAL LEFT VENTRICLE CONTRACTILITY AND NORMAL LEFT VENTRICLE SIZE MTDD
--- NOTE | 2021-09-01 09:44 | DS ---
DATE OF SERVICE: 08/06/21 FINAL DIAGNOSIS: 1. Acute pneumonitis 2. COPD 3. Epigastric pain due to constipation DISCHARGE INSTRUCTIONS: Discharge home today. Continue home oxygen as previously ordered. Followup with Dr. Nguyen's office next week. MEDICATIONS AT DISCHARGE: Aspirin 81mg PO daily Amlodipine 5mg PO daily Ipratropium-albuterol 3ml inhalation QID Tramadol 50mg TID PRN Atorvastatin 20mg PO daily Vitamin D one tablet PO daily Albuterol Sulfate two puff inhalation WID NEW PRESCRIPTIONS: COREG 6.25MG TAKE BY BY MOUTH TWICE A DAY(START TON) OMNICEF 300MG TAKE BY MOUTH TWICE A DAY X5 DAYS TOTAL (START TON) COLACE (DOCUSATE SODIUM) 100MG TAKE ONCE CAPSULE BY MOUTH TWICE A DAY FOR CONSTIPATION (START ) OVER THE COUNTER MIRALAX 17GM BY MOUTH ONCE DAILY FOR CONSTIPATION (START TOMORROW) PREDNISONE 10MG TAKE ONE TABLET BY MOUTH DAILY FOR 5 DAYS (START TOMORROW) CARAFATE 1GM BY MOUTH BEFORE MEALS AND AT BEDTIME (START BEFORE NEXT MEAL) PROTONIX 40MG TAKE BY MOUTH TWICE A DAY (START TON) DISCONTINUED MEDICATIONS: Carvedilol 3.125mg PO BID DIET INSTRUCTIONS: Soft regular diet ACTIVITY: As tolerated with rest periods as needed. HOSPITAL COURSE: 70 year old white female who was a direct admit from our office with acute pneumonitis, dehydration and she was hypotensive in our office. She had been on antibiotics and steroids about one week prior as an outpatient. She still had a persistent cough, yellow drainage, very short of breath and weak. She was admitted placed on Rocephin 1 gram IV daily a long with Zithromax 500mg IV for three days. Started on Solu-Cortef 125mg IV Q 8 hours. She is on oxygen all the time. Chest CT just showed changes with acute bronchitis and no actual lobar pneumonia. WBC was elevated on admission, today it is improved at 13,000 on day of discharge. Renal function was elevated indicated marked dehydration along with hypotension on admission today is closer to normal with a BUN of 22 and creatinine 0.54. She was on IV fluids for several days. She is feeling better. She was tachycardic on admission likely due to respiratory distress. We initiated Coreg 6.25mg PO BID and we will continue that. She will also go home on Omnicef 300mg BID for the 7 days along with Prednisone 10mg PO BID for the next 7 days. She is to have an echo before discharge to note she has an appointment with [facility] next month for Thyroid nodules. She will followup with our office next week. She again has oxygen at home. She has been up and about eating well. Discharge her in stable condition. TIME SPENT: More than 60 minutes. SHANNAN
== END 2021-08-06 12:40 | disposition home or self-care (01) | DRG 198 ==
LOC: LAB 10:55 → MEDSURG A 12:28
PROVIDERS: ADMIT Internal Medicine; ATTEND Internal Medicine
DX: R05.9 Cough, unspecified; Z90.49 Acquired absence of other specified parts of digestive tract; J44.9 Chronic obstructive pulmonary disease, unspecified; Z95.1 Presence of aortocoronary bypass graft; I25.10 Atherosclerotic heart disease of native coronary artery without angina pectoris; K59.00 Constipation, unspecified; R10.84 Generalized abdominal pain; J84.114 Acute interstitial pneumonitis; F17.210 Nicotine dependence, cigarettes, uncomplicated; Z99.81 Dependence on supplemental oxygen; E86.0 Dehydration; Z20.822 Contact with and (suspected) exposure to COVID-19

== ENCOUNTER 2021-11-23 14:11 | Inpatient (IN) ==
[2021-11-23 21:02] VITALS: BMI 19.9
[2021-11-26 05:12] VITALS: BP 129/75; TEMP 97
== END 2021-11-26 10:57 | disposition home or self-care (01) | DRG 640 ==
LOC: ED 14:11 → MEDSURG A 16:59
PROVIDERS: ADMIT Internal Medicine; ATTEND Internal Medicine
DX: Z95.5 Presence of coronary angioplasty implant and graft; E87.6 Hypokalemia; Z79.899 Other long term (current) drug therapy; Z20.822 Contact with and (suspected) exposure to COVID-19; Z51.81 Encounter for therapeutic drug level monitoring; I25.10 Atherosclerotic heart disease of native coronary artery without angina pectoris; J96.20 Acute and chronic respiratory failure, unspecified whether with hypoxia or hypercapnia; I25.2 Old myocardial infarction; E78.5 Hyperlipidemia, unspecified; N39.0 Urinary tract infection, site not specified; F41.9 Anxiety disorder, unspecified; F17.210 Nicotine dependence, cigarettes, uncomplicated; J96.12 Chronic respiratory failure with hypercapnia; Z79.82 Long term (current) use of aspirin; R42 Dizziness and giddiness; D64.9 Anemia, unspecified; Z86.79 Personal history of other diseases of the circulatory system; R10.9 Unspecified abdominal pain; Z99.81 Dependence on supplemental oxygen; J44.1 Chronic obstructive pulmonary disease with (acute) exacerbation; I10 Essential (primary) hypertension; J20.9 Acute bronchitis, unspecified

== ENCOUNTER 2022-04-29 04:33 | Inpatient (IN) ==
[2022-04-29] MEDS ORDERED: DUONEB NEB STA (05:25)
--- NOTE | 2022-04-29 05:40 | ED.PDOC ---
General <ALIS RAYA MD - Last Filed: 05/01/22 19:45> ED Provider: Dr. ALIS RAYA Chief Complaint: Non-specific Complaint Stated Complaint: Patient states that she woke up short of breath and was noted to have low oxygen saturation. She states that the nurse at the retirement probably did not know what she was doing when she tried to get her to use her CPAP machine. Now feels well. States she was recently admitted to [facility] about one week ago for Anemia and had 3 units of blood transfusion. Time Seen by Provider: 04/29/22 05:25 Mode of Arrival: Ambulance Information Source: Patient, [facility] and EMT Primary Care Provider: ROSE MARIE NGUYEN MD Nursing and Triage Documentation Reviewed and Agree: Yes Does patient meet sepsis criteria?: No System Inflammatory Response Syndrome: Not Applicable Sepsis Protocol: For patient's 13 years and over: Temp is 96.8 and below OR 101 and greater Pulse >90 BPM Resp >20/minute Acutely Altered Mental Status Are patient's symptoms suggestive of a new infection, such as: -Pneumonia -Skin, Soft Tissue -Endocarditis -UTI -Bone, Joint Infection -Implantable Device -Acute Abdominal Infection -Wound Infection -Meningitis -Blood Stream Catheter Infection -Unknown Respiratory Complaint Exam <ALIS RAYA MD - Last Filed: 05/01/22 19:45> Respiratory Complaint/Exam Onset/Duration: just prior to arrival Symptoms Are: Resolved Timing: Intermittent Initial Severity: Severe Current Severity: None Location: Chest Character: Reports Bronchospastic cough Aggravating: Reports None Alleviating: Reports Spontaneous resolution Associated Signs and Symptoms: Reports Rapid breathing and Dyspnea Related History: Reports Similar episode History of Healthcare-Acquired Pneumonia: Lives at retirement Related Surgical History: Reports None Cardiac Risk Factors: Reports CAD Pseudomonas Risk Factors: Reports Chronic Lung Disease Home Oxygen Use: Yes Recent Stress Test: No Recent Echo/LV Function: No Respiratory Distress: None Inadequate Respiratory Effort: No Dysphagia Present: No Stridor Present: No JVD Present: No Accessory Muscle Use: No Retractions: Not Present Diminished Breath Sounds: Yes Differential Diagnoses: COPD Exacerbation, Pneumonia, URI, Aspiration and Other (mucus plug) Review of Systems <ALIS RAYA MD - Last Filed: 05/01/22 19:45> Review Of Systems Constitutional: Reports No symptoms Respiratory: Reports Cough and Short of air Cardiac: Reports No symptoms GI: Reports No symptoms : Reports No symptoms Skin: Reports Other (sacral wound) Neurological: Reports Anxiety All Other Systems: Reviewed and Negative PFSH <ALIS RAYA MD - Last Filed: 05/01/22 19:45> Medical History (Updated 05/01/22 @ 09:55 by KRISHNA MACK, RN) Absence of gallbladder Bronchitis COPD (chronic obstructive pulmonary disease) Diverticulosis Esophageal abnormality Gastritis GERD (gastroesophageal reflux disease) Hernia High cholesterol Hx of respiratory failure Hypertension Myocardial infarct, old Osteoporosis Paroxysmal atrial fibrillation Thyroid nodule Family History FATHER Cardiac disease Mother Stroke Social History (Updated 04/29/22 @ 09:48 by KRISHNA MACK, RN) Smoking and tobacco status: Former smoker Tobacco: How many years used: 40 (1/2PPD) Surgical History H/O heart artery stent History of hysterectomy Female Reproductive History Menstrual Hx Hysterectomy: Yes Hx Tubal Ligation: No Physical Exam <ALIS RAYA MD - Last Filed: 05/01/22 19:45> Physical Exam Appearance: Reports Well-appearing and Thin Ill-appearing: None Pain Distress: None Eyes: Reports MAXINE, EOMI and Conjunctiva clear ENT: Reports Nose normal and Oropharynx normal Neck: Supple Respiratory: Reports Airway patent, Breath sounds diminished and Respirations nonlabored; Denies Wheezes Cardiovascular: Reports RRR, Pulses normal and No rub GI/: Reports Soft, Nontender, No masses and Other (Rectal exam noted with severe hemorroids not thrombosed, No stool in the rectal volt. no Obvious blood on the exam Glove, no polyp) Musculoskeletal: Reports Edema (1-2 +) Skin: Reports Warm, Dry, Normal color and Other (Stage 2 sacral wound measuring 2x2 and surrounding stage 1 measuring 5 x 6 ) Neurological: Reports Motor intact, Alert and Oriented Psychiatric: Reports Anxious Interpretation <ALIS RAYA MD - Last Filed: 05/01/22 19:45> Radiology Interpretation Radiology Interpretation By: Radiologist Radiology Results: Positive Exam Interpreted: Portable CXR (There are bilateral infiltrates and consolidation, consistent with pneumonia. There is skin fold artifact projecting over the right hemithorax.) Optical Instrument Specialist Time of Optical Instrument Specialist Interpretation: 04:30 Rate: Normal Rhythm: Sinus Ectopy: None EKG Interpretation Time of EKG #1: 04:49 Rate: Normal Rhythm: Sinus Ectopy: None [place]: [place] (79) ST Segment: Normal Interpretation: Prologed Qt, Probable old inferior with Q waves in leads II, III, AVF Physician Notification <ALIS RAYA MD - Last Filed: 05/01/22 19:45> Case Discussed Endorsed To/Discussed With: Dr Dugan Time of Discussion: 07:05 Critical Care Note <ALIS RAYA MD - Last Filed: 05/01/22 19:45> Critical Care Note Total Critical Care Time (mins): 0 Course <ALIS RAYA MD - Last Filed: 05/01/22 19:45> Course Hematology/Chemistry: 05/01/22 04:30 05/01/22 04:30 Orders, Labs, Meds: Lab Review 04/29/22 04/29/22 04/29/22 05:42 05:42 05:42 WBC 13.61 H RBC 1.75 L Hgb 5.4 L* Hct 17.6 L* MCV 100.6 H MCH 30.9 MCHC 30.7 L RDW Coeff of Darin 18.4 H Plt Count 221 Immature Gran % (Auto) 0.6 Neut % (Auto) 89.5 H Lymph % (Auto) 4.0 L [place] % (Auto) 5.3 Eos % (Auto) 0.5 Baso % (Auto) 0.1 Neut # (Auto) 12.2 H Lymph # (Auto) 0.5 L [place] # (Auto) 0.7 Eos # (Auto) 0.1 Baso # (Auto) 0.0 Immature Gran # (Auto) 0.1 Puncture Site Base Excess O2 Saturation ABG pH ABG pCO2 ABG pO2 ABG HCO3 ABG Total CO2 [place] Test Hemoglobin Oxyhemoglobin Carboxyhemoglobin Total Hemoglobin O2 Delivery Device Oxygen Liter Flow FiO2 % Sodium 132.6 L Potassium 2.31 L* Chloride 82.7 L Carbon Dioxide 52.6 H* Anion Gap -0.39 BUN 17.0 Creatinine 0.55 L Estimated GFR (MDRD) 108.00 BUN/Creatinine Ratio 30.90 Glucose 110.3 H Lactic Acid Calcium 8.11 L Magnesium Total Bilirubin 0.37 AST 15.3 ALT 13.2 Alkaline Phosphatase 70.8 Total Creatine Kinase < 20.0 L Troponin I 0.015 NT-Pro-B Natriuret Pep Total Protein 4.68 L Albumin 2.38 L Globulin 2.30 Albumin/Globulin Ratio 1.03 Procalcitonin < 0.05 Stl Occult Blood (IFOB) Stool Occult Blood #2 Stool Occult Blood #3 SARS CoV-2 RNA Rapid FAHAD Blood Type Antibody Screen Crossmatch ([facility]) 04/29/22 04/29/22 04/29/22 05:42 05:42 05:45 WBC RBC Hgb Hct MCV MCH MCHC RDW Coeff of Darin Plt Count Immature Gran % (Auto) Neut % (Auto) Lymph % (Auto) [place] % (Auto) Eos % (Auto) Baso % (Auto) Neut # (Auto) Lymph # (Auto) [place] # (Auto) Eos # (Auto) Baso # (Auto) Immature Gran # (Auto) Puncture Site [place] Excess 39.4 H O2 Saturation 98.8 H ABG pH 7.70 H* ABG pCO2 48.0 H ABG pO2 97.0 ABG HCO3 59.3 H ABG Total CO2 60.8 H [place] Test + Hemoglobin 0.6 Oxyhemoglobin 95.4 Carboxyhemoglobin 3.8 H Total Hemoglobin 5.8 L O2 Delivery Device Cannula Oxygen Liter Flow 4.00 FiO2 % 36.0 Sodium Potassium Chloride Carbon Dioxide Anion Gap BUN Creatinine Estimated GFR (MDRD) BUN/Creatinine Ratio Glucose Lactic Acid 0.64 L Calcium Magnesium Total Bilirubin AST ALT Alkaline Phosphatase Total Creatine Kinase Troponin I NT-Pro-B Natriuret Pep Total Protein Albumin Globulin Albumin/Globulin Ratio Procalcitonin Stl Occult Blood (IFOB) Stool Occult Blood #2 Stool Occult Blood #3 SARS CoV-2 RNA Rapid FAHAD Blood Type O POSITIVE Antibody Screen Crossmatch ([facility]) 04/29/22 04/29/22 04/29/22 06:08 06:08 06:49 WBC RBC Hgb Hct MCV MCH MCHC RDW Coeff of Darin Plt Count Immature Gran % (Auto) Neut % (Auto) Lymph % (Auto) [place] % (Auto) Eos % (Auto) Baso % (Auto) Neut # (Auto) Lymph # (Auto) [place] # (Auto) Eos # (Auto) Baso # (Auto) Immature Gran # (Auto) Puncture Site Base Excess O2 Saturation ABG pH ABG pCO2 ABG pO2 ABG HCO3 ABG Total CO2 [place] Test Hemoglobin Oxyhemoglobin Carboxyhemoglobin Total Hemoglobin O2 Delivery Device Oxygen Liter Flow FiO2 % Sodium Potassium Chloride Carbon Dioxide Anion Gap BUN Creatinine Estimated GFR (MDRD) BUN/Creatinine Ratio Glucose Lactic Acid Calcium Magnesium Total Bilirubin AST ALT Alkaline Phosphatase Total Creatine Kinase Troponin I NT-Pro-B Natriuret Pep Total Protein Albumin Globulin Albumin/Globulin Ratio Procalcitonin Stl Occult Blood (IFOB) Negative Stool Occult Blood #2 No specimen received Stool Occult Blood #3 No specimen received SARS CoV-2 RNA Rapid FAHAD Negative Blood Type O POSITIVE Antibody Screen Negative Crossmatch ([facility]) See Detail 04/29/22 06:53 WBC RBC Hgb Hct MCV MCH MCHC RDW Coeff of Darin Plt Count Immature Gran % (Auto) Neut % (Auto) Lymph % (Auto) [place] % (Auto) Eos % (Auto) Baso % (Auto) Neut # (Auto) Lymph # (Auto) [place] # (Auto) Eos # (Auto) Baso # (Auto) Immature Gran # (Auto) Puncture Site Base Excess O2 Saturation ABG pH ABG pCO2 ABG pO2 ABG HCO3 ABG Total CO2 [place] Test Hemoglobin Oxyhemoglobin Carboxyhemoglobin Total Hemoglobin O2 Delivery Device Oxygen Liter Flow FiO2 % Sodium Potassium Chloride Carbon Dioxide Anion Gap BUN Creatinine Estimated GFR (MDRD) BUN/Creatinine Ratio Glucose Lactic Acid Calcium Magnesium 2.31 H Total Bilirubin AST ALT Alkaline Phosphatase Total Creatine Kinase Troponin I NT-Pro-B Natriuret Pep 2430 H Total Protein Albumin Globulin Albumin/Globulin Ratio Procalcitonin Stl Occult Blood (IFOB) Stool Occult Blood #2 Stool Occult Blood #3 SARS CoV-2 RNA Rapid FAHAD Blood Type Antibody Screen Crossmatch ([facility]) Orders Category Date Time Status ADMIT PATIENT INPATIENT .TO [facility] / [facility] (MONITORED BED) ADMISSION 04/29/22 08:42 Active ABG DRAW REQUEST Stat CARDIO 04/29/22 05:26 Completed EKG-(ED ONLY) Stat CARDIO 04/29/22 05:25 Completed NEBULIZER TREATMENT Stat CARDIO 04/29/22 05:27 Completed TELEMETRY MONITORING TELE CARE 04/29/22 08:42 Active ED APPLY O2 .ONCE EMERGENCY 04/29/22 05:25 Active ED IV/MEDIPORT/POWERPORT .ONCE EMERGENCY 04/29/22 06:19 Active ABG COOX Stat LAB 04/29/22 05:45 Completed BLOOD CULTURE (ED ONLY) Stat LAB 04/29/22 05:42 Results CBC W/ AUTO DIFF Stat LAB 04/29/22 05:42 Completed COMPREHENSIVE METABOLIC PANEL Stat LAB 04/29/22 05:42 Completed CREATINE KINASE Stat LAB 04/29/22 05:42 Completed LACTIC ACID Stat LAB 04/29/22 05:42 Completed MAGNESIUM Stat LAB 04/29/22 06:53 Completed NT-PROBNP(ED) Stat LAB 04/29/22 06:53 Completed OCCULT BLOOD, STOOL Stat LAB 04/29/22 06:08 Completed PROCALCITONIN Stat LAB 04/29/22 05:42 Completed SARS COV-2 RNA RAPID FAHAD Stat LAB 04/29/22 06:08 Completed TROPONIN I Stat LAB 04/29/22 05:42 Completed TYPE AND SCREEN Stat LAB 04/29/22 06:49 Completed 0.9 % Sodium Chloride [Saline Flush] MEDS 04/29/22 06:19 Active 1 syr IVF PRN PRN Ipratropium/Albuterol Neb [Duoneb] MEDS 04/29/22 05:25 Discontinued 3 ml NEB ONCE STA Morphine Sulfate [Morphine 2 mg/ml Syringe] MEDS 04/29/22 06:19 Discontinued 2 mg IVP ONCE ONE Piperacillin Sodium/Tazobactam [Zosyn 3.375 gm] 3.375 MEDS 04/29/22 06:27 Discontinued gm 0.9 % Sodium Chloride [Sodium Chloride 100Ml] 100 ml IV ONCE Potassium Chloride [Potassium Chloride 10 Meq/100 ml MEDS 04/29/22 07:30 Discontinued Premix] 10 meq in 100 ml IV ONCE CHEST, 1V AP ONLY Stat RADS 04/29/22 05:25 Completed Medications Generic Name Dose Route Start Last Admin Trade Name Freq PRN Reason Stop Dose Admin Acetaminophen 650 mg 04/29/22 20:50 05/01/22 16:47 Acetaminophen 325 Mg Tablet PO 650 mg Q6HR PRN Administration Pain Hydrocodone Bitart/Acetaminophen 1 tab 04/29/22 10:17 05/01/22 19:24 Hydrocodone Bit/Acetaminophen 5/325 Mg Tablet PO 1 tab Q6H PRN Administration MODERATE PAIN Albuterol Sulfate 2 puff 04/29/22 10:17 Albuterol Sulfate (Ventolin Hfa) 18 Gm 1 Puff With Spacer IH Q6H PRN SOA Albuterol/Ipratropium 3 ml 04/30/22 12:00 05/01/22 17:21 Ipratropium/Albuterol Vial.Neb NEB 3 ml RTQ6H ALDO Administration Amiodarone HCl 200 mg 04/29/22 10:17 05/01/22 08:54 Amiodarone Hcl 200 Mg Tablet PO 200 mg BID ALDO Administration Atorvastatin Calcium 20 mg 04/29/22 10:18 05/01/22 08:54 Atorvastatin Calcium 20 Mg Tablet PO 20 mg DAILY ALDO Administration Bisacodyl 10 mg 04/29/22 10:17 Bisacodyl 10 Mg Supp.Rect RC DIRECTED PRN Constipation Cholecalciferol 5,000 unit 04/29/22 10:19 05/01/22 08:54 Cholecalciferol (Vitamin D3) 1,000 Unit (25 Mcg) Tablet PO 5,000 unit DAILY ALDO Administration Piperacillin Sod/Tazobactam 100 mls @ 100 mls/hr 04/29/22 12:00 05/01/22 18:09 Sod 4.5 gm/ Sodium Chloride IV 05/02/22 11:59 100 mls/hr Q6HR ALDO Administration Doxycycline Hyclate 100 mg/ 100 mls @ 50 mls/hr 05/01/22 09:00 05/01/22 09:39 Sodium Chloride IV 05/04/22 08:59 50 mls/hr Q12HR ALDO Administration Lorazepam 0.5 mg 04/30/22 19:21 04/30/22 20:15 Lorazepam 0.5 Mg Tablet PO 0.5 mg Q6HR PRN Administration Anxiety Magnesium Hydroxide 30 ml 04/29/22 10:17 04/30/22 08:50 Magnesium Hydroxide 30 Ml Cup PO 30 ml DAILY PRN Administration CONSTIPATION Methylprednisolone Sodium Succinate 40 mg 04/29/22 21:00 05/01/22 08:54 Methylprednisolone Sod Succ/Pf 40 Mg/Ml Vial IVP 40 mg Q12HR ALDO Administration Metolazone 2.5 mg 04/29/22 10:20 05/01/22 05:36 Metolazone 2.5 Mg Tablet PO 2.5 mg QDAC ALDO Administration Metoprolol Succinate 25 mg 04/29/22 21:00 05/01/22 08:54 Metoprolol Succinate 25 Mg Tab.Er.24h PO 25 mg BID ALDO Administration Non-Formulary Medication 500 mg 04/29/22 10:17 Calcium Carbonate PO Q8H PRN Heartburn Non-Formulary Medication 500 mcg 04/29/22 10:19 05/01/22 08:55 Cyanocobalamin (Vitamin B-12) PO Not Given DAILY ALDO Ondansetron HCl 4 mg 04/29/22 10:17 Ondansetron Hcl 4 Mg Tablet PO Q8H PRN Nausea / Vomiting Pantoprazole Sodium 40 mg 05/01/22 10:00 05/01/22 10:00 Pantoprazole Sodium 40 Mg Vial IVP 40 mg QDAC ALDO Administration Sodium Chloride 1 syr 04/29/22 06:19 04/29/22 07:09 0.9% Sodium Chloride 10 Ml Disp.Syrin IVF 1 syr PRN PRN Administration To flush IV Sodium Chloride 1 syr 04/29/22 21:00 05/01/22 13:33 0.9% Sodium Chloride 10 Ml Disp.Syrin IVF Not Given Q8HR ALDO Sucralfate 1 gm 04/29/22 11:00 05/01/22 16:47 Sucralfate Susp 1 Gm/10 Ml Cup PO 1 gm BIDAC ALDO Administration Discontinued Medications Generic Name Dose Route Start Last Admin Trade Name Freq PRN Reason Stop Dose Admin Acetaminophen 650 mg 04/29/22 10:33 04/29/22 10:40 Acetaminophen 325 Mg Tablet PO 04/29/22 10:34 650 mg ONCE STA Administration Albuterol/Ipratropium 3 ml 04/29/22 05:25 04/29/22 05:54 Ipratropium/Albuterol Vial.Neb NEB 04/29/22 05:26 3 ml ONCE STA Administration Albuterol/Ipratropium 3 ml 04/29/22 09:02 Ipratropium/Albuterol Vial.Neb NEB RTQ6H PRN Wheezing Apixaban 5 mg 04/29/22 10:18 05/01/22 09:44 Apixaban 5 Mg Tab PO Not Given BID ALDO Furosemide 20 mg 04/29/22 14:30 04/29/22 14:22 Furosemide Inj 20 Mg/2 Ml Vial IVP 04/29/22 14:31 20 mg ONCE ONE Administration Furosemide 40 mg 04/30/22 10:26 05/01/22 05:36 Furosemide 40 Mg Tablet PO 05/01/22 09:00 40 mg QDAC ALDO Administration Piperacillin Sod/Tazobactam 100 mls @ 100 mls/hr 04/29/22 06:27 04/29/22 07:08 Sod 3.375 gm/ Sodium Chloride IV 04/29/22 07:26 100 mls/hr ONCE ONE Administration Potassium Chloride 10 meq in 100 mls @ 100 mls/hr 04/29/22 07:30 04/29/22 07:45 Potassium Chloride 10 Meq/100 Ml Premix IV 04/29/22 08:29 100 mls/hr ONCE ONE Administration Potassium Chloride 40 meq in 200 mls @ 50 mls/hr 04/29/22 09:00 04/29/22 15:16 Potassium Chloride 20 Meq/100 Ml Premix IV 04/29/22 12:59 50 mls/hr ONCE ONE Administration Metoprolol Succinate 25 mg 04/29/22 11:00 Metoprolol Succinate 25 Mg Tab.Er.24h PO BID ALDO Morphine Sulfate 2 mg 04/29/22 06:19 04/29/22 07:09 Morphine Sulfate 2 Mg/Ml Syringe IVP 04/29/22 06:20 2 mg ONCE ONE Administration Omeprazole 20 mg 04/29/22 10:20 05/01/22 05:36 Omeprazole 20 Mg Capsule.Dr PO 20 mg QDAC ALDO Administration Potassium Chloride 40 meq 04/29/22 09:00 04/29/22 10:40 Potassium Chloride 40 Meq/30 Ml Cup PO 04/29/22 09:01 40 meq ONCE ONE Administration Potassium Chloride 40 meq 04/30/22 10:26 05/01/22 08:54 Potassium Chloride 20 Meq Tab PO 05/01/22 10:25 40 meq DAILYWM ALDO Administration Potassium Chloride 20 meq 05/01/22 08:55 05/01/22 09:39 Potassium Chloride 20 Meq Tab PO 05/01/22 08:56 20 meq ONCE STA Administration Vital Signs: Temp Pulse Resp BP Pulse Ox 04/29/22 04:36 98.2 F 91 18 109/45 L 95 <SUE MCCONNELL - Last Filed: 04/29/22 08:45> Course Orders, Labs, Meds: Lab Review 04/29/22 04/29/22 04/29/22 05:42 05:42 05:42 WBC 13.61 H RBC 1.75 L Hgb 5.4 L* Hct 17.6 L* MCV 100.6 H MCH 30.9 MCHC 30.7 L RDW Coeff of Darin 18.4 H Plt Count 221 Immature Gran % (Auto) 0.6 Neut % (Auto) 89.5 H Lymph % (Auto) 4.0 L [place] % (Auto) 5.3 Eos % (Auto) 0.5 Baso % (Auto) 0.1 Neut # (Auto) 12.2 H Lymph # (Auto) 0.5 L [place] # (Auto) 0.7 Eos # (Auto) 0.1 Baso # (Auto) 0.0 Immature Gran # (Auto) 0.1 Puncture Site Base Excess O2 Saturation ABG pH ABG pCO2 ABG pO2 ABG HCO3 ABG Total CO2 [place] Test Hemoglobin Oxyhemoglobin Carboxyhemoglobin Total Hemoglobin O2 Delivery Device Oxygen Liter Flow FiO2 % Sodium 132.6 L Potassium 2.31 L* Chloride 82.7 L Carbon Dioxide 52.6 H* Anion Gap -0.39 BUN 17.0 Creatinine 0.55 L Estimated GFR (MDRD) 108.00 BUN/Creatinine Ratio 30.90 Glucose 110.3 H Lactic Acid Calcium 8.11 L Magnesium Total Bilirubin 0.37 AST 15.3 ALT 13.2 Alkaline Phosphatase 70.8 Total Creatine Kinase < 20.0 L Troponin I 0.015 NT-Pro-B Natriuret Pep Total Protein 4.68 L Albumin 2.38 L Globulin 2.30 Albumin/Globulin Ratio 1.03 Procalcitonin < 0.05 Stl Occult Blood (IFOB) Stool Occult Blood #2 Stool Occult Blood #3 SARS CoV-2 RNA Rapid FAHAD Blood Type Antibody Screen Crossmatch ([facility]) 04/29/22 04/29/22 04/29/22 05:42 05:42 05:45 WBC RBC Hgb Hct MCV MCH MCHC RDW Coeff of Darin Plt Count Immature Gran % (Auto) Neut % (Auto) Lymph % (Auto) [place] % (Auto) Eos % (Auto) Baso % (Auto) Neut # (Auto) Lymph # (Auto) [place] # (Auto) Eos # (Auto) Baso # (Auto) Immature Gran # (Auto) Puncture Site [place] Excess 39.4 H O2 Saturation 98.8 H ABG pH 7.70 H* ABG pCO2 48.0 H ABG pO2 97.0 ABG HCO3 59.3 H ABG Total CO2 60.8 H [place] Test + Hemoglobin 0.6 Oxyhemoglobin 95.4 Carboxyhemoglobin 3.8 H Total Hemoglobin 5.8 L O2 Delivery Device Cannula Oxygen Liter Flow 4.00 FiO2 % 36.0 Sodium Potassium Chloride Carbon Dioxide Anion Gap BUN Creatinine Estimated GFR (MDRD) BUN/Creatinine Ratio Glucose Lactic Acid 0.64 L Calcium Magnesium Total Bilirubin AST ALT Alkaline Phosphatase Total Creatine Kinase Troponin I NT-Pro-B Natriuret Pep Total Protein Albumin Globulin Albumin/Globulin Ratio Procalcitonin Stl Occult Blood (IFOB) Stool Occult Blood #2 Stool Occult Blood #3 SARS CoV-2 RNA Rapid FAHAD Blood Type O POSITIVE Antibody Screen Crossmatch ([facility]) 04/29/22 04/29/22 04/29/22 06:08 06:08 06:49 WBC RBC Hgb Hct MCV MCH MCHC RDW Coeff of Darin Plt Count Immature Gran % (Auto) Neut % (Auto) Lymph % (Auto) [place] % (Auto) Eos % (Auto) Baso % (Auto) Neut # (Auto) Lymph # (Auto) [place] # (Auto) Eos # (Auto) Baso # (Auto) Immature Gran # (Auto) Puncture Site Base Excess O2 Saturation ABG pH ABG pCO2 ABG pO2 ABG HCO3 ABG Total CO2 [place] Test Hemoglobin Oxyhemoglobin Carboxyhemoglobin Total Hemoglobin O2 Delivery Device Oxygen Liter Flow FiO2 % Sodium Potassium Chloride Carbon Dioxide Anion Gap BUN Creatinine Estimated GFR (MDRD) BUN/Creatinine Ratio Glucose Lactic Acid Calcium Magnesium Total Bilirubin AST ALT Alkaline Phosphatase Total Creatine Kinase Troponin I NT-Pro-B Natriuret Pep Total Protein Albumin Globulin Albumin/Globulin Ratio Procalcitonin Stl Occult Blood (IFOB) Negative Stool Occult Blood #2 No specimen received Stool Occult Blood #3 No specimen received SARS CoV-2 RNA Rapid FAHAD Negative Blood Type O POSITIVE Antibody Screen Negative Crossmatch ([facility]) See Detail 04/29/22 06:53 WBC RBC Hgb Hct MCV MCH MCHC RDW Coeff of Darin Plt Count Immature Gran % (Auto) Neut % (Auto) Lymph % (Auto) [place] % (Auto) Eos % (Auto) Baso % (Auto) Neut # (Auto) Lymph # (Auto) [place] # (Auto) Eos # (Auto) Baso # (Auto) Immature Gran # (Auto) Puncture Site Base Excess O2 Saturation ABG pH ABG pCO2 ABG pO2 ABG HCO3 ABG Total CO2 [place] Test Hemoglobin Oxyhemoglobin Carboxyhemoglobin Total Hemoglobin O2 Delivery Device Oxygen Liter Flow FiO2 % Sodium Potassium Chloride Carbon Dioxide Anion Gap BUN Creatinine Estimated GFR (MDRD) BUN/Creatinine Ratio Glucose Lactic Acid Calcium Magnesium 2.31 H Total Bilirubin AST ALT Alkaline Phosphatase Total Creatine Kinase Troponin I NT-Pro-B Natriuret Pep 2430 H Total Protein Albumin Globulin Albumin/Globulin Ratio Procalcitonin Stl Occult Blood (IFOB) Stool Occult Blood #2 Stool Occult Blood #3 SARS CoV-2 RNA Rapid FAHAD Blood Type Antibody Screen Crossmatch ([facility]) Orders Category Date Time Status ADMIT PATIENT INPATIENT .TO [facility] / [facility] (MONITORED BED) ADMISSION 04/29/22 08:42 Active ABG DRAW REQUEST Stat CARDIO 04/29/22 05:26 Completed EKG-(ED ONLY) Stat CARDIO 04/29/22 05:25 Completed NEBULIZER TREATMENT Stat CARDIO 04/29/22 05:27 Completed TELEMETRY MONITORING TELE CARE 04/29/22 08:42 Active ED APPLY O2 .ONCE EMERGENCY 04/29/22 05:25 Active ED IV/MEDIPORT/POWERPORT .ONCE EMERGENCY 04/29/22 06:19 Active ABG COOX Stat LAB 04/29/22 05:45 Completed BLOOD CULTURE (ED ONLY) Stat LAB 04/29/22 05:42 Results CBC W/ AUTO DIFF Stat LAB 04/29/22 05:42 Completed COMPREHENSIVE METABOLIC PANEL Stat LAB 04/29/22 05:42 Completed CREATINE KINASE Stat LAB 04/29/22 05:42 Completed LACTIC ACID Stat LAB 04/29/22 05:42 Completed MAGNESIUM Stat LAB 04/29/22 06:53 Completed NT-PROBNP(ED) Stat LAB 04/29/22 06:53 Completed OCCULT BLOOD, STOOL Stat LAB 04/29/22 06:08 Completed PROCALCITONIN Stat LAB 04/29/22 05:42 Completed SARS COV-2 RNA RAPID FAHAD Stat LAB 04/29/22 06:08 Completed TROPONIN I Stat LAB 04/29/22 05:42 Completed TYPE AND SCREEN Stat LAB 04/29/22 06:49 Completed 0.9 % Sodium Chloride [Saline Flush] MEDS 04/29/22 06:19 Active 1 syr IVF PRN PRN Ipratropium/Albuterol Neb [Duoneb] MEDS 04/29/22 05:25 Discontinued 3 ml NEB ONCE STA Morphine Sulfate [Morphine 2 mg/ml Syringe] MEDS 04/29/22 06:19 Discontinued 2 mg IVP ONCE ONE Piperacillin Sodium/Tazobactam [Zosyn 3.375 gm] 3.375 MEDS 04/29/22 06:27 Discontinued gm 0.9 % Sodium Chloride [Sodium Chloride 100Ml] 100 ml IV ONCE Potassium Chloride [Potassium Chloride 10 Meq/100 ml MEDS 04/29/22 07:30 Discontinued Premix] 10 meq in 100 ml IV ONCE CHEST, 1V AP ONLY Stat RADS 04/29/22 05:25 Completed Medications Generic Name Dose Route Start Last Admin Trade Name Freq PRN Reason Stop Dose Admin Acetaminophen 650 mg 04/29/22 20:50 05/01/22 16:47 Acetaminophen 325 Mg Tablet PO 650 mg Q6HR PRN Administration Pain Hydrocodone Bitart/Acetaminophen 1 tab 04/29/22 10:17 05/01/22 19:24 Hydrocodone Bit/Acetaminophen 5/325 Mg Tablet PO 1 tab Q6H PRN Administration MODERATE PAIN Albuterol Sulfate 2 puff 04/29/22 10:17 Albuterol Sulfate (Ventolin Hfa) 18 Gm 1 Puff With Spacer IH Q6H PRN SOA Albuterol/Ipratropium 3 ml 04/30/22 12:00 05/01/22 17:21 Ipratropium/Albuterol Vial.Neb NEB 3 ml RTQ6H ALDO Administration Amiodarone HCl 200 mg 04/29/22 10:17 05/01/22 08:54 Amiodarone Hcl 200 Mg Tablet PO 200 mg BID ALDO Administration Atorvastatin Calcium 20 mg 04/29/22 10:18 05/01/22 08:54 Atorvastatin Calcium 20 Mg Tablet PO 20 mg DAILY ALDO Administration Bisacodyl 10 mg 04/29/22 10:17 Bisacodyl 10 Mg Supp.Rect RC DIRECTED PRN Constipation Cholecalciferol 5,000 unit 04/29/22 10:19 05/01/22 08:54 Cholecalciferol (Vitamin D3) 1,000 Unit (25 Mcg) Tablet PO 5,000 unit DAILY ALDO Administration Piperacillin Sod/Tazobactam 100 mls @ 100 mls/hr 04/29/22 12:00 05/01/22 18:09 Sod 4.5 gm/ Sodium Chloride IV 05/02/22 11:59 100 mls/hr Q6HR ALDO Administration Doxycycline Hyclate 100 mg/ 100 mls @ 50 mls/hr 05/01/22 09:00 05/01/22 09:39 Sodium Chloride IV 05/04/22 08:59 50 mls/hr Q12HR ALDO Administration Lorazepam 0.5 mg 04/30/22 19:21 04/30/22 20:15 Lorazepam 0.5 Mg Tablet PO 0.5 mg Q6HR PRN Administration Anxiety Magnesium Hydroxide 30 ml 04/29/22 10:17 04/30/22 08:50 Magnesium Hydroxide 30 Ml Cup PO 30 ml DAILY PRN Administration CONSTIPATION Methylprednisolone Sodium Succinate 40 mg 04/29/22 21:00 05/01/22 08:54 Methylprednisolone Sod Succ/Pf 40 Mg/Ml Vial IVP 40 mg Q12HR ALDO Administration Metolazone 2.5 mg 04/29/22 10:20 05/01/22 05:36 Metolazone 2.5 Mg Tablet PO 2.5 mg QDAC ALDO Administration Metoprolol Succinate 25 mg 04/29/22 21:00 05/01/22 08:54 Metoprolol Succinate 25 Mg Tab.Er.24h PO 25 mg BID ALDO Administration Non-Formulary Medication 500 mg 04/29/22 10:17 Calcium Carbonate PO Q8H PRN Heartburn Non-Formulary Medication 500 mcg 04/29/22 10:19 05/01/22 08:55 Cyanocobalamin (Vitamin B-12) PO Not Given DAILY ALDO Ondansetron HCl 4 mg 04/29/22 10:17 Ondansetron Hcl 4 Mg Tablet PO Q8H PRN Nausea / Vomiting Pantoprazole Sodium 40 mg 05/01/22 10:00 05/01/22 10:00 Pantoprazole Sodium 40 Mg Vial IVP 40 mg QDAC ALDO Administration Sodium Chloride 1 syr 04/29/22 06:19 04/29/22 07:09 0.9% Sodium Chloride 10 Ml Disp.Syrin IVF 1 syr PRN PRN Administration To flush IV Sodium Chloride 1 syr 04/29/22 21:00 05/01/22 13:33 0.9% Sodium Chloride 10 Ml Disp.Syrin IVF Not Given Q8HR [facility] Sucralfate 1 gm 04/29/22 11:00 05/01/22 16:47 Sucralfate Susp 1 Gm/10 Ml Cup PO 1 gm BIDAC ALDO Administration Discontinued Medications Generic Name Dose Route Start Last Admin Trade Name Cyndie PRN Reason Stop Dose Admin Acetaminophen 650 mg 04/29/22 10:33 04/29/22 10:40 Acetaminophen 325 Mg Tablet PO 04/29/22 10:34 650 mg ONCE STA Administration Albuterol/Ipratropium 3 ml 04/29/22 05:25 04/29/22 05:54 Ipratropium/Albuterol Vial.Horacio NEGRON 04/29/22 05:26 3 ml ONCE STA Administration Albuterol/Ipratropium 3 ml 04/29/22 09:02 Ipratropium/Albuterol Vial.Horacio NEGRON RTQ6H PRN Wheezing Apixaban 5 mg 04/29/22 10:18 05/01/22 09:44 Apixaban 5 Mg Tab PO Not Given BID ALDO Furosemide 20 mg 04/29/22 14:30 04/29/22 14:22 Furosemide Inj 20 Mg/2 Ml Vial IVP 04/29/22 14:31 20 mg ONCE ONE Administration Furosemide 40 mg 04/30/22 10:26 05/01/22 05:36 Furosemide 40 Mg Tablet PO 05/01/22 09:00 40 mg QDAC ALDO Administration Piperacillin Sod/Tazobactam 100 mls @ 100 mls/hr 04/29/22 06:27 04/29/22 07:08 Sod 3.375 gm/ Sodium Chloride IV 04/29/22 07:26 100 mls/hr ONCE ONE Administration Potassium Chloride 10 meq in 100 mls @ 100 mls/hr 04/29/22 07:30 04/29/22 07:45 Potassium Chloride 10 Meq/100 Ml Premix IV 04/29/22 08:29 100 mls/hr ONCE ONE Administration Potassium Chloride 40 meq in 200 mls @ 50 mls/hr 04/29/22 09:00 04/29/22 15:16 Potassium Chloride 20 Meq/100 Ml Premix IV 04/29/22 12:59 50 mls/hr ONCE ONE Administration Metoprolol Succinate 25 mg 04/29/22 11:00 Metoprolol Succinate 25 Mg Tab.Er.24h PO BID ALDO Morphine Sulfate 2 mg 04/29/22 06:19 04/29/22 07:09 Morphine Sulfate 2 Mg/Ml Syringe IVP 04/29/22 06:20 2 mg ONCE ONE Administration Omeprazole 20 mg 04/29/22 10:20 05/01/22 05:36 Omeprazole 20 Mg Capsule. PO 20 mg QDAC ADLO Administration Potassium Chloride 40 meq 04/29/22 09:00 04/29/22 10:40 Potassium Chloride 40 Meq/30 Ml Cup PO 04/29/22 09:01 40 meq ONCE ONE Administration Potassium Chloride 40 meq 04/30/22 10:26 05/01/22 08:54 Potassium Chloride 20 Meq Tab PO 05/01/22 10:25 40 meq DAILYWM ALDO Administration Potassium Chloride 20 meq 05/01/22 08:55 05/01/22 09:39 Potassium Chloride 20 Meq Tab PO 05/01/22 08:56 20 meq ONCE STA Administration Vital Signs: Temp Pulse Resp BP Pulse Ox 04/29/22 04:36 98.2 F 91 18 109/45 L 95 Discharge Plan Discharge Patient Disposition: ADMITTED INPATIENT Discharge Problem: Severe anemia, Cough, Acute dyspnea, COPD (chronic obstructive pulmonary disease), Hypokalemia, Bilateral pneumonia Did you review [place] [employer] for ALL controlled substances?: Not Applicable ED Provider: SUE MCCONNELL Condition: Fair <ALIS RAYA MD - Last Filed: 05/01/22 19:45> Physician Progress Note: [] <SUE MCCONNELL - Last Filed: 04/29/22 08:45> Physician Progress Note: 7:15 AM: I assumed care from Dr. Raya. Reviewed results. ABG shows pH 7.7, pCO2 48 and pO2 97. CBC shows WBC of 13.4, Hb 5.4. Hemoccult was negative. Chems show K+ of 2.3, Na of 132, CO2 of 53. LA is 0.64 with a negative procalcitonin. Covid is negative. CXR shows bilateral infiltrates c/w pneumonia. A BNP has been added. She has been started on Zosyn, potassium and had blood cultures drawn. We are attempting to find a hospital to accept the patient in transfer. 8:30 PM; I spoke with Dr. Chapman at [facility] and after discussion, pt was on comfort measures. If she is on comfort measures, he does not want to accept and we can manage the abnormalities here. We confirmed that she is comfort measures only. I will contact Dr. Nguyen to discuss the case. 8:45 AM: I spoke with Dr. Nguyen. He is out of town this weekend and recommends that we admit to hospitalist service to address issues. He will accept the patient back Monday if she is still in the hospital. She will be admitted in guarded condition.
[2022-04-29 05:58] LABS: BASOPHILS % (AUTO) 0.1 % (0.0-3.0); EOSINOPHILS # (AUTO) 0.1 K/ul (0.0-0.7); EOSINOPHILS % (AUTO) 0.5 % (0.0-7.0); IMMATURE GRANULOCYTE # (AUTO) 0.1 (0.0-1.0); IMMATURE GRANULOCYTE % (AUTO) 0.6 % (0.0-5.0); LYMPHOCYTES # (AUTO) 0.5 K/uL (0.60-3.4); MEAN CORPUSCULAR HEMOGLOBIN 30.9 pg (27.0-31.0); MEAN CORPUSCULAR HGB CONC 30.7 (31.8-35.4); MEAN CORPUSCULAR VOLUME 100.6 fl (81.0-99.0); MONOCYTES # (AUTO) 0.7 K/uL (0.4-2.0); MONOCYTES % (AUTO) 5.3 (0-10); NEUTROPHILS # (AUTO) 12.2 K/ul (2.0-6.9); NEUTROPHILS % (AUTO) 89.5 % (42.2-75.2); PLATELET COUNT 221 10^3/uL (140-440); RDW COEFFICIENT OF VARIATION 18.4 % (11.6-14.8); RED BLOOD COUNT 1.75 10^6/ul (4.20-5.40); WHITE BLOOD COUNT 13.61 K/ul (4.6-10.2)
--- NOTE | 2022-04-29 05:59 | DI ---
EXAM: AP CHEST. HISTORY: Shortness of breath. FINDINGS: The bones are unremarkable. The cardiac silhouette and pulmonary vasculature are within no rmal limits. There are small bilateral pleural effusions. There are bilateral infiltrates and conso lidation, consistent with pneumonia. There is skin fold artifact projecting over the right hemithora x. Impression: Bilateral pneumonia as described. Small bilateral pleural effusions.
[2022-04-29 06:00] LABS: ABG O2 HGB 95.4 % (95-100); BEecf 39.4 (-2.0-3.0); COHb 3.8 (0.5-1.5); HCO3 59.3 (21-28); MetHb 0.6 (0-1.5); TCO2 60.8 (19-24); sO2 98.8 % (94-98); tHb 5.8 g/dl (11.7-17.4)
[2022-04-29 06:03] LABS: ALANINE AMINOTRANSFERASE 13.2 U/L (0-35); ALBUMIN 2.38 g/dL (3.5-5.0); ALKALINE PHOSPHATASE 70.8 U/L (53-141); ASPARTATE AMINO TRANSFERASE 15.3 U/L (14-36); BILIRUBIN,TOTAL 0.37 mg/dL (0.2-1.3); CALCIUM 8.11 mg/dL (8.4-10.2); CREATININE 0.55 mg/dL (0.60-1.30); GLUCOSE 110.3 mg/dL (74-106); TOTAL PROTEIN 4.68 g/dL (6.3-8.2)
[2022-04-29 06:05] LABS: HEMOGLOBIN 5.4 g/dl (12.0-16.0)
[2022-04-29 06:06] LABS: HEMATOCRIT 17.6 % (37.0-47.0)
[2022-04-29 06:14] LABS: TROPONIN I 0.015 ng/ml (0.0000-0.120)
[2022-04-29] MEDS ORDERED: MORPHINE 2 MG/ML SYRINGE IVP ONE (06:19)
[2022-04-29] MEDS ORDERED: ZOSYN 3.375 GM 3.375 GM in SODIUM CHLORIDE 100ML 100 ML IV ONE (06:27)
[2022-04-29 06:30] LABS: CHLORIDE 82.7 mmol/L (98-107); SODIUM 132.6 mmol/L (134.5-145)
[2022-04-29 06:34] LABS: POTASSIUM 2.31 mmol/L (3.5-5.1)
[2022-04-29 06:35] LABS: CARBON DIOXIDE 52.6 mmol/L (22-30.0)
[2022-04-29 06:40] LABS: OCCULT BLOOD SAMPLE 1 NEGATIVE (NEGATIVE)
[2022-04-29 07:00] LABS: SARS COV-2 RNA RAPID NAAT NEGATIVE (NEGATIVE)
[2022-04-29] MEDS ORDERED: POTASSIUM CHLORIDE 10 MEQ VIAL- ADDITIVE ONLY IV ONE (07:04)
[2022-04-29] MEDS ORDERED: POTASSIUM CHLORIDE 10 MEQ/100 ML PREMIX 10 MEQ/100 ML BAG IV ONE (07:30)
[2022-04-29 07:33] LABS: MAGNESIUM 2.31 mg/dL (1.6-2.3)
[2022-04-29 07:49] LABS: CREATINE KINASE < 20.0 U/L (30-135)
--- NOTE | 2022-04-29 08:47 | PCM ---
Chief Complaint Chief Complaint: Shortness of breath History of Present Illness History of Present Illness: Pt was sent from the correction for SOB. She has severe COPD and was recently discharged from [facility] after respiratory failure and multifactorial anemia. Here she has no significant complaints but was noted to have a pH of 7.7, WBC of 13.6, Hb of 5.4, K+ of 2.3, CXR showing bilateral pneumonia. She was given zosyn and potassium and a T&S was ordered. Attempted to transfer her elsewhere but with DNR and comfort measures only orders, no one would accept her so she was admitted here for treatment. Review of Systems Constitutional: Reports No symptoms Eyes: Reports No symptoms Ears: Reports No symptoms Nose: Reports No symptoms Throat: Reports No symptoms Mouth: Reports No symptoms Respiratory: Reports Cough and Shortness of air Cardiovascular: Reports No symptoms Gastrointestinal: Reports No symptoms Genitourinary: Reports No symptoms Neurological: Reports No symptoms Musculoskeletal: Reports No symptoms Skin: Reports No symptoms Immunology: Reports No symptoms Hematology: Reports No symptoms Endocrine: Reports No symptoms Psychiatric: Reports No symptoms Allergies Allergies Allergy/AdvReac Type Severity Reaction Status Date / Time No Known Allergies Allergy Verified 04/29/22 04:44 [facility] Medical History Absence of gallbladder Bronchitis COPD (chronic obstructive pulmonary disease) Diverticulosis Esophageal abnormality Gastritis GERD (gastroesophageal reflux disease) Hernia High cholesterol Hx of respiratory failure Hypertension Myocardial infarct, old Osteoporosis Thyroid nodule Surgical History H/O heart artery stent History of hysterectomy Family History FATHER Cardiac disease Mother Stroke Social History Smoking and tobacco status: Current some day smoker Medications Medications: Medications Generic Name Dose Route Start Last Admin Trade Name Freq PRN Reason Stop Dose Admin Sodium Chloride 1 syr 04/29/22 06:19 04/29/22 07:09 0.9% Sodium Chloride 10 Ml Disp.Syrin IVF 1 syr PRN PRN Administration To flush IV Body Composition Height: 5 ft 3 in Weight: 60 kg Body Mass Index (BMI): 23.4 Vital Signs Temperature: 98.2 F Pulse Rate: 91 Respiratory Rate: 18 Blood Pressure: 109/45 O2 Sat by Pulse Oximetry: 95 Physical Examination Appearance: Reports No pain distress, Well-nourished and Cachectic (Cachectic ederly female in no acute distress) Ill-appearing: None Pain Distress: None Eyes: Reports MAXINE, EOMI and Conjunctiva clear ENT: Reports Not Examined Respiratory: Reports Airway patent, Breath sounds equal and Wheezes (occasional expiratory wheezes) Cardiovascular: Reports RRR, Pulses normal, No rub and No murmur GI/: Reports Soft, Nontender, No masses, Bowel sounds normal and No Organomegaly Musculoskeletal: Reports Normal strength, ROM intact, No edema and No calf tenderness Skin: Reports Warm, Dry and Normal color Neurological: Reports Sensation intact, Motor intact (General weakness with no focal weakness), Reflexes intact, Cranial nerves intact, Alert and Oriented Psychiatric: Reports Affect appropriate and Mood appropriate Lab/Tests/Diagnostic Imaging Lab/Tests/Diagnostic Imaging: Lab Review 04/29/22 04/29/22 04/29/22 05:42 05:42 05:42 WBC 13.61 H RBC 1.75 L Hgb 5.4 L* Hct 17.6 L* MCV 100.6 H MCH 30.9 MCHC 30.7 L RDW Coeff of Darin 18.4 H Plt Count 221 Immature Gran % (Auto) 0.6 Neut % (Auto) 89.5 H Lymph % (Auto) 4.0 L [place] % (Auto) 5.3 Eos % (Auto) 0.5 Baso % (Auto) 0.1 Neut # (Auto) 12.2 H Lymph # (Auto) 0.5 L [place] # (Auto) 0.7 Eos # (Auto) 0.1 Baso # (Auto) 0.0 Immature Gran # (Auto) 0.1 Puncture Site Base Excess O2 Saturation ABG pH ABG pCO2 ABG pO2 ABG HCO3 ABG Total CO2 [place] Test Hemoglobin Oxyhemoglobin Carboxyhemoglobin Total Hemoglobin O2 Delivery Device Oxygen Liter Flow FiO2 % Sodium 132.6 L Potassium 2.31 L* Chloride 82.7 L Carbon Dioxide 52.6 H* Anion Gap -0.39 BUN 17.0 Creatinine 0.55 L Estimated GFR (MDRD) 108.00 BUN/Creatinine Ratio 30.90 Glucose 110.3 H Lactic Acid Calcium 8.11 L Magnesium Total Bilirubin 0.37 AST 15.3 ALT 13.2 Alkaline Phosphatase 70.8 Total Creatine Kinase < 20.0 L Troponin I 0.015 NT-Pro-B Natriuret Pep Total Protein 4.68 L Albumin 2.38 L Globulin 2.30 Albumin/Globulin Ratio 1.03 Procalcitonin < 0.05 Stl Occult Blood (IFOB) Stool Occult Blood #2 Stool Occult Blood #3 SARS CoV-2 RNA Rapid FAHAD Blood Type Antibody Screen 04/29/22 04/29/22 04/29/22 05:42 05:42 05:45 WBC RBC Hgb Hct MCV MCH MCHC RDW Coeff of Darin Plt Count Immature Gran % (Auto) Neut % (Auto) Lymph % (Auto) [place] % (Auto) Eos % (Auto) Baso % (Auto) Neut # (Auto) Lymph # (Auto) [place] # (Auto) Eos # (Auto) Baso # (Auto) Immature Gran # (Auto) Puncture Site [place] Base Excess 39.4 H O2 Saturation 98.8 H ABG pH 7.70 H* ABG pCO2 48.0 H ABG pO2 97.0 ABG HCO3 59.3 H ABG Total CO2 60.8 H [place] Test + Hemoglobin 0.6 Oxyhemoglobin 95.4 Carboxyhemoglobin 3.8 H Total Hemoglobin 5.8 L O2 Delivery Device Cannula Oxygen Liter Flow 4.00 FiO2 % 36.0 Sodium Potassium Chloride Carbon Dioxide Anion Gap BUN Creatinine Estimated GFR (MDRD) BUN/Creatinine Ratio Glucose Lactic Acid 0.64 L Calcium Magnesium Total Bilirubin AST ALT Alkaline Phosphatase Total Creatine Kinase Troponin I NT-Pro-B Natriuret Pep Total Protein Albumin Globulin Albumin/Globulin Ratio Procalcitonin Stl Occult Blood (IFOB) Stool Occult Blood #2 Stool Occult Blood #3 SARS CoV-2 RNA Rapid FAHAD Blood Type O POSITIVE Antibody Screen 04/29/22 04/29/22 04/29/22 06:08 06:08 06:49 WBC RBC Hgb Hct MCV MCH MCHC RDW Coeff of Darin Plt Count Immature Gran % (Auto) Neut % (Auto) Lymph % (Auto) [place] % (Auto) Eos % (Auto) Baso % (Auto) Neut # (Auto) Lymph # (Auto) [place] # (Auto) Eos # (Auto) Baso # (Auto) Immature Gran # (Auto) Puncture Site Base Excess O2 Saturation ABG pH ABG pCO2 ABG pO2 ABG HCO3 ABG Total CO2 [place] Test Hemoglobin Oxyhemoglobin Carboxyhemoglobin Total Hemoglobin O2 Delivery Device Oxygen Liter Flow FiO2 % Sodium Potassium Chloride Carbon Dioxide Anion Gap BUN Creatinine Estimated GFR (MDRD) BUN/Creatinine Ratio Glucose Lactic Acid Calcium Magnesium Total Bilirubin AST ALT Alkaline Phosphatase Total Creatine Kinase Troponin I NT-Pro-B Natriuret Pep Total Protein Albumin Globulin Albumin/Globulin Ratio Procalcitonin Stl Occult Blood (IFOB) Negative Stool Occult Blood #2 Pending Stool Occult Blood #3 Pending SARS CoV-2 RNA Rapid FAHAD Negative Blood Type O POSITIVE Antibody Screen Negative 04/29/22 06:53 WBC RBC Hgb Hct MCV MCH MCHC RDW Coeff of Darin Plt Count Immature Gran % (Auto) Neut % (Auto) Lymph % (Auto) [place] % (Auto) Eos % (Auto) Baso % (Auto) Neut # (Auto) Lymph # (Auto) [place] # (Auto) Eos # (Auto) Baso # (Auto) Immature Gran # (Auto) Puncture Site Base Excess O2 Saturation ABG pH ABG pCO2 ABG pO2 ABG HCO3 ABG Total CO2 [place] Test Hemoglobin Oxyhemoglobin Carboxyhemoglobin Total Hemoglobin O2 Delivery Device Oxygen Liter Flow FiO2 % Sodium Potassium Chloride Carbon Dioxide Anion Gap BUN Creatinine Estimated GFR (MDRD) BUN/Creatinine Ratio Glucose Lactic Acid Calcium Magnesium 2.31 H Total Bilirubin AST ALT Alkaline Phosphatase Total Creatine Kinase Troponin I NT-Pro-B Natriuret Pep 2430 H Total Protein Albumin Globulin Albumin/Globulin Ratio Procalcitonin Stl Occult Blood (IFOB) Stool Occult Blood #2 Stool Occult Blood #3 SARS CoV-2 RNA Rapid FAHAD Blood Type Antibody Screen Orders Category Date Time Status ADMIT PATIENT INPATIENT .TO [facility] (MONITORED BED) ADMISSION 04/29/22 08:42 Active ABG DRAW REQUEST Stat CARDIO 04/29/22 05:26 Completed EKG-(ED ONLY) Stat CARDIO 04/29/22 05:25 Completed NEBULIZER TREATMENT Stat CARDIO 04/29/22 05:27 Completed TELEMETRY MONITORING TELE CARE 04/29/22 08:42 Active ED APPLY O2 .ONCE EMERGENCY 04/29/22 05:25 Active ED IV/MEDIPORT/POWERPORT .ONCE EMERGENCY 04/29/22 06:19 Active ABG COOX Stat LAB 04/29/22 05:45 Completed BLOOD CULTURE (ED ONLY) Stat LAB 04/29/22 05:42 Received CBC W/ AUTO DIFF Stat LAB 04/29/22 05:42 Completed COMPREHENSIVE METABOLIC PANEL Stat LAB 04/29/22 05:42 Completed CREATINE KINASE Stat LAB 04/29/22 05:42 Completed LACTIC ACID Stat LAB 04/29/22 05:42 Completed MAGNESIUM Stat LAB 04/29/22 06:53 Completed NT-PROBNP(ED) Stat LAB 04/29/22 06:53 Completed OCCULT BLOOD, STOOL Stat LAB 04/29/22 06:08 Results PROCALCITONIN Stat LAB 04/29/22 05:42 Completed SARS COV-2 RNA RAPID FAHAD Stat LAB 04/29/22 06:08 Completed TROPONIN I Stat LAB 04/29/22 05:42 Completed TYPE AND SCREEN Stat LAB 04/29/22 06:49 Completed 0.9 % Sodium Chloride [Saline Flush] MEDS 04/29/22 06:19 Active 1 syr IVF PRN PRN Ipratropium/Albuterol Neb [Duoneb] MEDS 04/29/22 05:25 Discontinued 3 ml NEB ONCE STA Morphine Sulfate [Morphine 2 mg/ml Syringe] MEDS 04/29/22 06:19 Discontinued 2 mg IVP ONCE ONE Piperacillin Sodium/Tazobactam [Zosyn 3.375 gm] 3.375 MEDS 04/29/22 06:27 Discontinued gm 0.9 % Sodium Chloride [Sodium Chloride 100Ml] 100 ml IV ONCE Potassium Chloride [Potassium Chloride 10 Meq/100 ml MEDS 04/29/22 07:30 Discontinued Premix] 10 meq in 100 ml IV ONCE CHEST, 1V AP ONLY Stat RADS 04/29/22 05:25 Completed Medications Generic Name Dose Route Start Last Admin Trade Name Freq PRN Reason Stop Dose Admin Sodium Chloride 1 syr 04/29/22 06:19 04/29/22 07:09 0.9% Sodium Chloride 10 Ml Disp.Syrin IVF 1 syr PRN PRN Administration To flush IV Discontinued Medications Generic Name Dose Route Start Last Admin Trade Name Freq PRN Reason Stop Dose Admin Albuterol/Ipratropium 3 ml 04/29/22 05:25 04/29/22 05:54 Ipratropium/Albuterol Vial.Neb NEB 04/29/22 05:26 3 ml ONCE STA Administration Piperacillin Sod/Tazobactam 100 mls @ 100 mls/hr 04/29/22 06:27 04/29/22 07:08 Sod 3.375 gm/ Sodium Chloride IV 04/29/22 07:26 100 mls/hr ONCE ONE Administration Potassium Chloride 10 meq in 100 mls @ 100 mls/hr 04/29/22 07:30 04/29/22 07:45 Potassium Chloride 10 Meq/100 Ml Premix IV 04/29/22 08:29 100 mls/hr ONCE ONE Administration Morphine Sulfate 2 mg 04/29/22 06:19 04/29/22 07:09 Morphine Sulfate 2 Mg/Ml Syringe IVP 04/29/22 06:20 2 mg ONCE ONE Administration Assessment (1) COPD (chronic obstructive pulmonary disease): Status: Acute Code(s): J44.9 - Chronic obstructive pulmonary disease, unspecified SNOMED Code(s): 58756100 (2) Severe anemia: Status: Acute Code(s): D64.9 - Anemia, unspecified SNOMED Code(s): 773939040 (3) Hypokalemia: Status: Acute Code(s): E87.6 - Hypokalemia SNOMED Code(s): 57353697 (4) Bilateral pneumonia: Status: Acute Code(s): J18.9 - Pneumonia, unspecified organism SNOMED Code(s): 452097520 Plan Plan: 1. Anemia: Pt has multifactorial anemia without GI bleed and a negative hemoccult. Likely not producing blood. Will transfuse 2 units PRBCs today and recheck CBC in AM. 2. COPD: Will start on steroids and continue NC O2 and neb treatments. 3. Hypokalemia. Transfuse potassium 80 meq today and recheck K+ in AM to determine if need to continue to replete. 4. Bilateral pneumonia: Will continue Zosyn and will likely need antibiotics at correction upon discharge. 5. Pt is a DNR and comfort measures only.
[2022-04-29] MEDS ORDERED: TYLENOL PO ONE (08:57)
[2022-04-29] MEDS ORDERED: LASIX IVP ONE ×2 (08:57→14:30)
[2022-04-29] MEDS ORDERED: POTASSIUM CHL 10% ORAL SOL PO ONE (09:00)
[2022-04-29] MEDS ORDERED: DUONEB NEB PRN (09:02)
[2022-04-29 09:58] VITALS: BMI 20.5
[2022-04-29] MEDS ORDERED: DULCOLAX RC PRN (10:17)
[2022-04-29] MEDS ORDERED: CALCIUM CARBONATE PO PRN (10:17)
[2022-04-29] MEDS ORDERED: ZOFRAN TAB PO PRN (10:17)
[2022-04-29] MEDS ORDERED: VENTOLIN HFA (PER PUFF-WITH SPACER) IH PRN (10:17)
[2022-04-29] MEDS ORDERED: TYLENOL PO STA (10:33)
[2022-04-29] MEDS: ZAROXOLYN PO SCH (10:40)
[2022-04-29] MEDS: PRILOSEC PO SCH (10:40)
[2022-04-29] MEDS: CORDARONE PO SCH ×2 (10:40→20:42)
[2022-04-29] MEDS: CARAFATE PO SCH ×2 (10:40→17:18)
[2022-04-29] MEDS: NON-FORMULARY MEDICATION (Cyanocobalamin (Vitamin B-12) 500 mcg Tablet) PO SCH (10:41)
[2022-04-29] MEDS: LIPITOR PO SCH (10:41)
[2022-04-29] MEDS: VITAMIN D PO SCH (10:41)
[2022-04-29] MEDS: ELIQUIS PO SCH ×2 (10:42→20:41)
[2022-04-29] MEDS ORDERED: TOPROL XL PO SCH ×2 (11:00→21:00)
[2022-04-29] MEDS: MILK OF MAGNESIA PO PRN (11:38)
[2022-04-29] MEDS: NORCO 5-325 PO PRN ×3 (11:38→23:44)
[2022-04-29] MEDS: ZOSYN 4.5 GM 4.5 GM in SODIUM CHLORIDE 100ML 100 ML IV SCH ×3 (12:16→23:44)
[2022-04-29] MEDS: POTASSIUM CHLORIDE 20 MEQ/100 ML PREMIX 40 MEQ/200 ML BAG IV ONE ×2 (13:33→15:16)
[2022-04-29 19:57] LABS: HEMATOCRIT 27.2 % (37.0-47.0); HEMOGLOBIN 8.7 g/dl (12.0-16.0)
[2022-04-29] MEDS: TOPROL XL PO SCH (20:42)
[2022-04-29] MEDS: SOLU-MEDROL 40 MG IVP SCH (20:43)
[2022-04-30 00:03] LABS: OCCULT BLOOD SAMPLE 2 NO SPECIMEN RECEIVED (NEGATIVE); OCCULT BLOOD SAMPLE 3 NO SPECIMEN RECEIVED (NEGATIVE)
[2022-04-30] MEDS: TYLENOL PO PRN ×3 (04:18→16:25)
[2022-04-30 05:08] LABS: BASOPHILS % (AUTO) 0.2 % (0.0-3.0); HEMATOCRIT 25.4 % (37.0-47.0); HEMOGLOBIN 8.1 g/dl (12.0-16.0); IMMATURE GRANULOCYTE # (AUTO) 0.1 (0.0-1.0); IMMATURE GRANULOCYTE % (AUTO) 0.5 % (0.0-5.0); LYMPHOCYTES # (AUTO) 0.2 K/uL (0.60-3.4); LYMPHOCYTES % (AUTO) 1.4 (10.0-50.0); MEAN CORPUSCULAR HEMOGLOBIN 30.2 pg (27.0-31.0); MEAN CORPUSCULAR HGB CONC 31.9 (31.8-35.4); MEAN CORPUSCULAR VOLUME 94.8 fl (81.0-99.0); MONOCYTES # (AUTO) 0.2 K/uL (0.4-2.0); MONOCYTES % (AUTO) 1.2 (0-10); NEUTROPHILS # (AUTO) 11.8 K/ul (2.0-6.9); NEUTROPHILS % (AUTO) 96.7 % (42.2-75.2); PLATELET COUNT 200 10^3/uL (140-440); RDW COEFFICIENT OF VARIATION 19.6 % (11.6-14.8); RED BLOOD COUNT 2.68 10^6/ul (4.20-5.40); WHITE BLOOD COUNT 12.24 K/ul (4.6-10.2)
[2022-04-30] MEDS: ZOSYN 4.5 GM 4.5 GM in SODIUM CHLORIDE 100ML 100 ML IV SCH ×4 (05:08→23:14)
[2022-04-30 05:19] LABS: ALANINE AMINOTRANSFERASE 13.7 U/L (0-35); ALBUMIN 2.54 g/dL (3.5-5.0); ALKALINE PHOSPHATASE 77.3 U/L (53-141); ASPARTATE AMINO TRANSFERASE 14.7 U/L (14-36); BILIRUBIN,TOTAL 0.79 mg/dL (0.2-1.3); BLOOD UREA NITROGEN 23.1 mg/dL (7-17); CALCIUM 8.12 mg/dL (8.4-10.2); CHLORIDE 82.7 mmol/L (98-107); CREATININE 0.6 mg/dL (0.60-1.30); GLUCOSE 155.9 mg/dL (74-106); POTASSIUM 3.54 mmol/L (3.5-5.1); SODIUM 134.4 mmol/L (134.5-145)
[2022-04-30 05:28] LABS: CARBON DIOXIDE 52.9 mmol/L (22-30.0)
[2022-04-30] MEDS: CARAFATE PO SCH ×2 (05:50→16:12)
[2022-04-30] MEDS: PRILOSEC PO SCH (05:50)
[2022-04-30] MEDS: ZAROXOLYN PO SCH (05:50)
[2022-04-30] MEDS: NORCO 5-325 PO PRN ×3 (05:55→20:14)
--- NOTE | 2022-04-30 08:10 | DI ---
EXAM: CHEST ONE-VIEW HISTORY: Pneumonia COMPARISON: 04/29/2022 FINDINGS: Opacification of the periphery of the right upper lung and right lower lung zone is noted. Small pleural effusions present. Left lung is clear. Cardiac silhouette is normal. IMPRESSION: Persistent opacification of the right lung consistent with pneumonia. This is unchanged from 04/29/2022
[2022-04-30] MEDS: VITAMIN D PO SCH (08:18)
[2022-04-30] MEDS: LIPITOR PO SCH (08:20)
[2022-04-30] MEDS: SOLU-MEDROL 40 MG IVP SCH ×2 (08:21→20:14)
[2022-04-30] MEDS: CORDARONE PO SCH ×2 (08:22→20:14)
[2022-04-30] MEDS: TOPROL XL PO SCH ×2 (08:22→20:13)
[2022-04-30] MEDS: ELIQUIS PO SCH ×2 (08:24→20:14)
[2022-04-30] MEDS: NON-FORMULARY MEDICATION (Cyanocobalamin (Vitamin B-12) 500 mcg Tablet) PO SCH (08:47)
[2022-04-30] MEDS: MILK OF MAGNESIA PO PRN (08:50)
[2022-04-30] MEDS: LASIX TAB PO SCH (10:39)
[2022-04-30] MEDS: K-DUR PO SCH (10:39)
--- NOTE | 2022-04-30 10:54 | PCM.PROG ---
Date Seen by Provider: 04/30/22 Time Seen by Provider: 09:30 Subjective: Breathing improved a bit. Good appetite. Has not been out of bed yet. Objective: Vitals: T=97.1 F, P=67, R=20, HI=345/65, KAA4=098 Patient alert and oriented. Breathing without distress. HEENT: [] Oral mucosa moist. Neck: [] Supple. Lungs: [] Breath tones decreased bilaterally. A few scattered wheezes. CVS: [] Moderate peripheral edema. Abdomen: [] Extremities: [] Neurological: [] Skin: [] Lab/Tests/Diagnostic Imaging: [] (1) COPD (chronic obstructive pulmonary disease): Status: Acute Code(s): J44.9 - Chronic obstructive pulmonary disease, unspecified SNOMED Code(s): 00437489 (2) Severe anemia: Status: Acute Code(s): D64.9 - Anemia, unspecified SNOMED Code(s): 104838198 (3) Hypokalemia: Status: Acute Code(s): E87.6 - Hypokalemia SNOMED Code(s): 71674543 (4) Bilateral pneumonia: Status: Acute Code(s): J18.9 - Pneumonia, unspecified organism SNOMED Code(s): 145184317 Plan: Change duonebs to Q6h scheduled. Replace potassium. Resume lasix. Increase activity.
[2022-04-30] MEDS: DUONEB NEB SCH ×3 (11:05→23:01)
[2022-04-30] MEDS: ATIVAN PO PRN (20:15)
[2022-05-01 04:38] LABS: BASOPHILS % (AUTO) 0.1 % (0.0-3.0); HEMATOCRIT 23.9 % (37.0-47.0); HEMOGLOBIN 7.5 g/dl (12.0-16.0); IMMATURE GRANULOCYTE # (AUTO) 0.1 (0.0-1.0); IMMATURE GRANULOCYTE % (AUTO) 0.6 % (0.0-5.0); LYMPHOCYTES # (AUTO) 0.2 K/uL (0.60-3.4); LYMPHOCYTES % (AUTO) 1.8 (10.0-50.0); MEAN CORPUSCULAR HEMOGLOBIN 30.4 pg (27.0-31.0); MEAN CORPUSCULAR HGB CONC 31.4 (31.8-35.4); MEAN CORPUSCULAR VOLUME 96.8 fl (81.0-99.0); MONOCYTES # (AUTO) 0.4 K/uL (0.4-2.0); MONOCYTES % (AUTO) 4.9 (0-10); NEUTROPHILS # (AUTO) 8.3 K/ul (2.0-6.9); NEUTROPHILS % (AUTO) 92.6 % (42.2-75.2); PLATELET COUNT 306 10^3/uL (140-440); RDW COEFFICIENT OF VARIATION 18.9 % (11.6-14.8); RED BLOOD COUNT 2.47 10^6/ul (4.20-5.40); WHITE BLOOD COUNT 8.91 K/ul (4.6-10.2)
[2022-05-01] MEDS: DUONEB NEB SCH ×4 (04:40→23:12)
[2022-05-01 04:50] LABS: ALANINE AMINOTRANSFERASE 14.8 U/L (0-35); ALBUMIN 2.64 g/dL (3.5-5.0); ALKALINE PHOSPHATASE 63.9 U/L (53-141); ASPARTATE AMINO TRANSFERASE 23.4 U/L (14-36); BILIRUBIN,TOTAL 0.59 mg/dL (0.2-1.3); BLOOD UREA NITROGEN 29.1 mg/dL (7-17); CALCIUM 8.05 mg/dL (8.4-10.2); CHLORIDE 83.2 mmol/L (98-107); CREATININE 0.54 mg/dL (0.60-1.30); GLUCOSE 171.2 mg/dL (74-106); POTASSIUM 3.31 mmol/L (3.5-5.1); SODIUM 132.1 mmol/L (134.5-145); TOTAL PROTEIN 5.18 g/dL (6.3-8.2)
[2022-05-01 05:01] LABS: CARBON DIOXIDE 51.1 mmol/L (22-30.0)
[2022-05-01] MEDS: PRILOSEC PO SCH (05:36)
[2022-05-01] MEDS: CARAFATE PO SCH ×2 (05:36→16:47)
[2022-05-01] MEDS: LASIX TAB PO SCH (05:36)
[2022-05-01] MEDS: ZOSYN 4.5 GM 4.5 GM in SODIUM CHLORIDE 100ML 100 ML IV SCH ×4 (05:36→23:34)
[2022-05-01] MEDS: ZAROXOLYN PO SCH (05:36)
[2022-05-01] MEDS: NORCO 5-325 PO PRN ×3 (05:36→19:24)
--- NOTE | 2022-05-01 08:47 | PCM.PROG ---
Date Seen by Provider: 05/01/22 Time Seen by Provider: 08:45 Subjective: she thinks her breathing is better-she requests physical therapy and oob---no nursing staff concens Objective: Vitals: T=96.5 F, P=68, R=20, MH=537/74, SPO2=94 HEENT: [] Neck: [suple] Lungs: [occ wheeze clears with cough] CVS: [rrr] Abdomen: [soft nt] Extremities: [] Neurological: [intact] Skin: [] Lab/Tests/Diagnostic Imaging: [] (1) COPD (chronic obstructive pulmonary disease): Status: Acute Code(s): J44.9 - Chronic obstructive pulmonary disease, unspecified SNOMED Code(s): 61486297 (2) Severe anemia: Status: Acute Code(s): D64.9 - Anemia, unspecified SNOMED Code(s): 597104436 (3) Hypokalemia: Status: Acute Code(s): E87.6 - Hypokalemia SNOMED Code(s): 72431241 (4) Bilateral pneumonia: Status: Acute Code(s): J18.9 - Pneumonia, unspecified organism SNOMED Code(s): 024222435 Plan: will review labs--she appears to be improving---agree with oob therapy---monitor blood count and electrolytes--on eliadalberto
[2022-05-01] MEDS: VITAMIN D PO SCH (08:54)
[2022-05-01] MEDS: TOPROL XL PO SCH ×2 (08:54→20:19)
[2022-05-01] MEDS: LIPITOR PO SCH (08:54)
[2022-05-01] MEDS: K-DUR PO SCH (08:54)
[2022-05-01] MEDS: CORDARONE PO SCH ×2 (08:54→20:19)
[2022-05-01] MEDS: SOLU-MEDROL 40 MG IVP SCH ×2 (08:54→20:19)
[2022-05-01] MEDS: NON-FORMULARY MEDICATION (Cyanocobalamin (Vitamin B-12) 500 mcg Tablet) PO SCH (08:55)
[2022-05-01] MEDS ORDERED: K-DUR PO STA (08:55)
[2022-05-01] MEDS: ELIQUIS PO SCH ×2 (08:55→09:44)
[2022-05-01 09:32] LABS: OCCULT BLOOD SAMPLE 1 POSITIVE (NEGATIVE); OCCULT BLOOD SAMPLE 2 NO SPECIMEN RECEIVED (NEGATIVE); OCCULT BLOOD SAMPLE 3 NO SPECIMEN RECEIVED (NEGATIVE)
[2022-05-01] MEDS: DOXY-100 100 MG in SODIUM CHLORIDE 100ML 100 ML IV SCH ×2 (09:39→20:19)
[2022-05-01] MEDS: PROTONIX IV IVP SCH (10:00)
[2022-05-01] MEDS: TYLENOL PO PRN (16:47)
[2022-05-01] MEDS: ATIVAN PO PRN (20:20)
[2022-05-02] MEDS: NORCO 5-325 PO PRN ×4 (03:03→21:53)
[2022-05-02] MEDS: ATIVAN PO PRN ×2 (03:03→21:53)
[2022-05-02] MEDS: DUONEB NEB SCH ×3 (04:47→16:58)
[2022-05-02 05:04] LABS: HEMATOCRIT 21.8 % (37.0-47.0); HEMOGLOBIN 6.6 g/dl (12.0-16.0); MEAN CORPUSCULAR HEMOGLOBIN 30.6 pg (27.0-31.0); MEAN CORPUSCULAR HGB CONC 30.3 (31.8-35.4); MEAN CORPUSCULAR VOLUME 100.9 fl (81.0-99.0); PLATELET COUNT 312 10^3/uL (140-440); RDW COEFFICIENT OF VARIATION 18.8 % (11.6-14.8); RED BLOOD COUNT 2.16 10^6/ul (4.20-5.40); WHITE BLOOD COUNT 9.29 K/ul (4.6-10.2)
[2022-05-02 05:18] LABS: ANISOCYTOSIS 2+ (NOT PRESENT); BLOOD UREA NITROGEN 27.1 mg/dL (7-17); CALCIUM 8.02 mg/dL (8.4-10.2); CHLORIDE 82.4 mmol/L (98-107); CREATININE 0.75 mg/dL (0.60-1.30); GLUCOSE 183.1 mg/dL (74-106); HYPOCHROMASIA 2+ (NOT PRESENT); POTASSIUM 2.96 mmol/L (3.5-5.1); SODIUM 133.8 mmol/L (134.5-145)
[2022-05-02 05:27] LABS: CARBON DIOXIDE 55.5 mmol/L (22-30.0)
[2022-05-02] MEDS: ZOSYN 4.5 GM 4.5 GM in SODIUM CHLORIDE 100ML 100 ML IV SCH ×2 (05:41→23:15)
[2022-05-02] MEDS: CARAFATE PO SCH ×2 (05:42→16:07)
[2022-05-02] MEDS: PROTONIX IV IVP SCH (05:42)
[2022-05-02] MEDS: ZAROXOLYN PO SCH (05:42)
[2022-05-02] MEDS: VITAMIN D PO SCH (08:33)
[2022-05-02] MEDS: CORDARONE PO SCH ×2 (08:34→20:32)
[2022-05-02] MEDS: TOPROL XL PO SCH ×2 (08:34→20:32)
[2022-05-02] MEDS: LIPITOR PO SCH (08:35)
[2022-05-02] MEDS: DOXY-100 100 MG in SODIUM CHLORIDE 100ML 100 ML IV SCH ×3 (08:35→20:32)
[2022-05-02] MEDS ORDERED: K-DUR PO ONE (09:04)
[2022-05-02] MEDS: NON-FORMULARY MEDICATION (Cyanocobalamin (Vitamin B-12) 500 mcg Tablet) PO SCH (09:49)
[2022-05-02] MEDS: SOLU-MEDROL 40 MG IVP SCH ×2 (10:05→20:13)
[2022-05-02] MEDS ORDERED: B & O SUPPOSITORY RC PRN (11:14)
[2022-05-02] MEDS: TYLENOL PO PRN (13:58)
[2022-05-02] MEDS ORDERED: LASIX IVP ONE ×2 (14:00→17:30)
--- NOTE | 2022-05-02 14:53 | DI ---
EXAM: FRONTAL VIEW OF THE CHEST. HISTORY: Shortness of breath. COMPARISON: Chest radiograph 04/30/2022. FINDINGS: Normal heart size. Atherosclerotic calcifications of the aorta. Multifocal consolidation in the right lung appears unchanged. Small right pleural effusion appears u nchanged. No visible pneumothorax. No acute osseous abnormality. IMPRESSION: Multifocal pneumonia in the right lung and small right pleural effusion appear unchanged.
[2022-05-02 21:03] LABS: HEMATOCRIT 31.7 % (37.0-47.0); HEMOGLOBIN 10.1 g/dl (12.0-16.0)
[2022-05-03] MEDS: DUONEB NEB SCH ×3 (00:10→12:53)
[2022-05-03] MEDS: NORCO 5-325 PO PRN ×2 (04:30→10:43)
[2022-05-03 05:05] LABS: HEMATOCRIT 32.6 % (37.0-47.0); HEMOGLOBIN 10.4 g/dl (12.0-16.0); MEAN CORPUSCULAR HEMOGLOBIN 30.3 pg (27.0-31.0); MEAN CORPUSCULAR HGB CONC 31.9 (31.8-35.4); PLATELET COUNT 363 10^3/uL (140-440); RDW COEFFICIENT OF VARIATION 18.4 % (11.6-14.8); RED BLOOD COUNT 3.43 10^6/ul (4.20-5.40); WHITE BLOOD COUNT 9.92 K/ul (4.6-10.2)
[2022-05-03 05:13] LABS: ANISOCYTOSIS NOT PRESENT (NOT PRESENT)
[2022-05-03] MEDS: ZOSYN 4.5 GM 4.5 GM in SODIUM CHLORIDE 100ML 100 ML IV SCH ×2 (05:16→11:27)
[2022-05-03 05:17] LABS: BLOOD UREA NITROGEN 26.3 mg/dL (7-17); CALCIUM 8.39 mg/dL (8.4-10.2); CREATININE 0.58 mg/dL (0.60-1.30); GLUCOSE 268.3 mg/dL (74-106); POTASSIUM 3.33 mmol/L (3.5-5.1); SODIUM 131.9 mmol/L (134.5-145)
[2022-05-03 05:25] LABS: CARBON DIOXIDE 50.6 mmol/L (22-30.0)
[2022-05-03] MEDS: ZAROXOLYN PO SCH (05:33)
[2022-05-03] MEDS: CARAFATE PO SCH (05:33)
[2022-05-03] MEDS: PROTONIX IV IVP SCH (05:49)
[2022-05-03] MEDS: VITAMIN D PO SCH (08:49)
[2022-05-03] MEDS: TOPROL XL PO SCH (08:49)
[2022-05-03] MEDS: DOXY-100 100 MG in SODIUM CHLORIDE 100ML 100 ML IV SCH (08:50)
[2022-05-03] MEDS: LIPITOR PO SCH (08:50)
[2022-05-03] MEDS: CORDARONE PO SCH (08:50)
[2022-05-03] MEDS: NON-FORMULARY MEDICATION (Cyanocobalamin (Vitamin B-12) 500 mcg Tablet) PO SCH (09:11)
[2022-05-03] MEDS: SOLU-MEDROL 40 MG IVP SCH (09:16)
[2022-05-03] MEDS: TYLENOL PO PRN (12:48)
--- NOTE | 2022-05-03 13:34 | PCM.PROG ---
Date Seen by Provider: 05/03/22 Time Seen by Provider: 13:31 Subjective: dx. anemia, gi bleed, pneumonia, dark stools Objective: Vitals: T=97.7 F, P=74, R=20, AN=737/62, SPO2=97 HEENT: []conjunctiva clear Neck: []supple Lungs: [] wheezing CVS: []rrr Abdomen: []nondistended Extremities: [] Neurological: []alert Skin: []pink Lab/Tests/Diagnostic Imaging: [] Hb 10.6 s/p rbc transfusion (1) COPD (chronic obstructive pulmonary disease): Status: Acute Code(s): J44.9 - Chronic obstructive pulmonary disease, unspecified SNOMED Code(s): 89955151 (2) Severe anemia: Status: Acute Code(s): D64.9 - Anemia, unspecified SNOMED Code(s): 491130562 (3) Hypokalemia: Status: Acute Code(s): E87.6 - Hypokalemia SNOMED Code(s): 46544447 (4) Bilateral pneumonia: Status: Acute Code(s): J18.9 - Pneumonia, unspecified organism SNOMED Code(s): 949571850 Plan: continue zosyn and doxycycline, wean down VM O2, transfer for GI bleed, continue protonix, am Hb, dnr
[2022-05-03 14:30] VITALS: BP 132/70; TEMP 98.1
--- NOTE | 2022-05-03 14:54 | PCM.DC ---
Final Diagnosis: anemia, gi bleed, pneumonia Physical Exam Appearance: No pain distress Ill-appearing: None Pain Distress: None Eyes: Conjunctiva clear ENT: Oropharynx normal Neck: Supple Respiratory: Airway patent Cardiovascular: RRR GI/: Nontender Musculoskeletal: No calf tenderness Skin: Warm and Dry Neurological: Alert and Oriented Psychiatric: Affect appropriate (1) COPD (chronic obstructive pulmonary disease): Status: Acute Code(s): J44.9 - Chronic obstructive pulmonary disease, unspecified SNOMED Code(s): 20277725 (2) Severe anemia: Status: Acute Code(s): D64.9 - Anemia, unspecified SNOMED Code(s): 598875360 (3) Hypokalemia: Status: Acute Code(s): E87.6 - Hypokalemia SNOMED Code(s): 22817727 (4) Bilateral pneumonia: Status: Acute Code(s): J18.9 - Pneumonia, unspecified organism SNOMED Code(s): 265289559 Reason for Hospitalization: pneumonia Prognosis/Condition at Discharge: fair Medications at Discharge: zosyn and doxycycline, 6liter nc, protonix Lab/Diagnostics: Hb 10.6, hemoccult melanotic stools Education Provided to Patient and Family: none Follow-ups: transfer accepted by Dr Pretty to [facility] Discharge Disposition: Transfer Hospital Course: rbc transfusion Plan: transfer to higher level care
== END 2022-05-03 16:30 | DRG 811 ==
LOC: ED 04:33 → MEDSURG A 08:44
PROVIDERS: ADMIT Emergency Medicine; ATTEND Emergency Medicine Emergency Medical Services
DX: I10 Essential (primary) hypertension; J18.9 Pneumonia, unspecified organism; Z20.822 Contact with and (suspected) exposure to COVID-19; D64.9 Anemia, unspecified; Z79.899 Other long term (current) drug therapy; M81.0 Age-related osteoporosis without current pathological fracture; I48.0 Paroxysmal atrial fibrillation; E87.6 Hypokalemia; J40 Bronchitis, not specified as acute or chronic; Z79.01 Long term (current) use of anticoagulants; R06.00 Dyspnea, unspecified; Z90.49 Acquired absence of other specified parts of digestive tract; J44.9 Chronic obstructive pulmonary disease, unspecified; K92.2 Gastrointestinal hemorrhage, unspecified; Z51.81 Encounter for therapeutic drug level monitoring; Z99.81 Dependence on supplemental oxygen; K21.9 Gastro-esophageal reflux disease without esophagitis; I25.10 Atherosclerotic heart disease of native coronary artery without angina pectoris; Z66 Do not resuscitate